=== PATIENT | male | born 1990 ===

== ENCOUNTER 2016-12-18 15:23 | Inpatient (IN) | payer MEDICAID ==
--- NOTE | 2016-12-18 15:39 | ED PDOC ---
Arrival/HPI - General Time Seen by Provider: 12/18/16 15:33 Historian: Patient - History of Present Illness Narrative History of Present Illness (Text): 12/18/16 15:36 A 26 year old male, whose past medical history includes schizophrenia, seizure disorder, depression and paranoia, presents to the emergency department for evaluation of suicidal ideation. Patient reports he took an entire bottle of Tegretol prior to arrival. Patient is unsure of how many milligrams or how many pills there were in total. Patient complains of worsening depression and states he wanted to harm himself. Patient denies any fever, chills, nausea, vomiting, abdominal pain, chest pain, shortness of breath, homicidal ideation or any other complaints. Time/Duration: Prior to Arrival Context: Home Past Medical History - Provider Review Nursing Documentation Reviewed: Yes Family/Social History - Physician Review Nursing Documentation Reviewed: Yes Family/Social History: No Known Family HX Allergies/Home Meds Allergies/Adverse Reactions: Allergies No Known Allergies Allergy (Verified 12/18/16 15:36) Home Medications: Home Meds Medication Instructions Recorded Confirmed PHENobarbital [PHENobarbital Tab] 97.2 mg PO BID 12/18/16 12/18/16 carBAMazepine [TEGretol-XR] 400 mg PO BID 12/18/16 12/18/16 Review of Systems - Physician Review All systems were reviewed & negative as marked: Yes - Review of Systems Constitutional: absent: Fevers, Night Sweats Respiratory: absent: SOB Cardiovascular: absent: Chest Pain Gastrointestinal: absent: Abdominal Pain, Nausea, Vomiting Psychiatric: Suicidal Ideation. absent: Other (Homicidal ideation) Physical Exam Vital Signs Reviewed: Yes Vital Signs Temp Pulse Resp BP Pulse Ox 12/18/16 20:25 80 18 112/49 L 100 12/18/16 18:21 71 10 L 114/54 L 98 12/18/16 17:52 81 18 123/64 99 12/18/16 16:07 70 18 137/66 100 12/18/16 15:34 97.9 F 94 H 20 121/70 100 Temperature: Afebrile Blood Pressure: Normal Pulse: Tachycardic Respiratory Rate: Normal Appearance: Positive for: Well-Appearing, Non-Toxic, Comfortable Pain Distress: None Mental Status: Positive for: Alert and Oriented X 3, other (Somnolent) - Systems Exam Head: Present: Atraumatic, Normocephalic Pupils: Present: PERRL Extroacular Muscles: Present: EOMI Conjunctiva: Present: Normal Mouth: Present: Moist Mucous Membranes Neck: Present: Normal Range of Motion Respiratory/Chest: Present: Clear to Auscultation, Good Air Exchange. No: Respiratory Distress, Accessory Muscle Use Cardiovascular: Present: Regular Rate and Rhythm, Normal S1, S2. No: Murmurs Abdomen: Present: Normal Bowel Sounds. No: Tenderness, Distention, Peritoneal Signs Back: Present: Normal Inspection Upper Extremity: Present: Normal Inspection. No: Cyanosis, Edema Lower Extremity: Present: Normal Inspection. No: Edema Neurological: Present: GCS=15, CN II-XII Intact, Speech Normal Skin: Present: Warm, Dry, Normal Color. No: Rashes Psychiatric: Present: Alert, Oriented x 3, Suicidal Ideation. No: Homicidal Ideation Medical Decision Making ED Course and Treatment: 12/18/16 15:35 Impression: A 26 year old male with suicidal ideation. Patient notes worsening depression. He denies any physical complaints at this time. Plan: -- EKG -- Labs -- Urine culture and Urinalysis -- IV fluids -- Reassess and disposition Progress Notes: 12/18/16 16:25 Poison control contacted, they recommend IV fluids. Charcoal and Tegretol levels sent. Patient placed on one to one observation due to suicidal ideations. - Lab Interpretations Lab Results: 12/18/16 15:45 12/18/16 15:45 Lab Results 12/18/16 16:02: Carbamazepine 7 12/18/16 15:45: Alcohol, Quantitative < 10 12/18/16 15:45: Salicylates < 1 L, Acetaminophen < 10.0 L 12/18/16 15:45: Sodium 139, Potassium 3.9, Chloride 106, Carbon Dioxide 25, Anion Gap 12, BUN 17, Creatinine 0.7, Est GFR ( Amer) > 60, Est GFR (Non- Af Amer) > 60, Random Glucose 104, Calcium 9.5, Magnesium 1.9, Total Bilirubin 0.7, AST 57, ALT 105 H, Alkaline Phosphatase 101, Total Protein 7.7, Albumin 4.4 , Globulin 3.3, Albumin/Globulin Ratio 1.3 12/18/16 15:45: WBC 5.8, RBC 5.39, Hgb 14.4, Hct 42.3, MCV 78.5 L, MCH 26.7, MCHC 34.0, RDW 15.0 H, Plt Count 225, MPV 9.8, Gran % 69.0 H, Lymph % (Auto) 22.8, [place] % (Auto) 6.3 H, Eos % (Auto) 1.7, Baso % (Auto) 0.2, Gran # 4.03, Lymph # 1.3, [place] # 0.4, Eos # 0.1, Baso # 0.01 - Medication Orders Current Medication Orders: Sodium Chloride (Sodium Chloride 0.9%) 1,000 mls @ 200 mls/hr IV .Q5H ALEKSEY Last Admin: 12/18/16 16:07 Dose: 200 mls/hr Discontinued Medications Charcoal (Charcoal, Activated) 260 mg PO STAT STA Stop: 12/18/16 16:04 Last Admin: 12/18/16 16:08 Dose: 260 mg Charcoal/Sorbitol (Actidose/Sorbitol 50gm/240 Ml Susp) 50 gm PO ONCE ONE Stop: 12/18/16 16:31 Last Admin: 12/18/16 17:25 Dose: 50 gm ED OBSERVATION Date of observation admission: 12/18/16 Time of observation admission: 16:50 - Observation admission statement Patient is being placed in observation because:: Overdose - Goals of Observation Goals of observation are:: Monitor and treat patient - Progress Note Progress Note: 12/18/16 16:50 Patient with suicidal ideation, he reports overdosing on Tegretol. 12/18/16 18:[address] Gaitan, who did not accept patient admission. Will admit under hospitalist. 12/18/16 18:27 Case discussed with hospitalist, who accepts patient admission for overdose. Aware of needed one to one observation upstairs. Disposition/Present on Arrival - Disposition Disposition Time: 16:50
[2016-12-18 16:01] VITALS: BMI 36.8
[2016-12-18] MEDS ORDERED: Activated Charcoal 260mg capsule PO STA (16:03)
[2016-12-18 16:07] LABS: BASO # 0.01 K/mm3 (0.0-2.0); BASO % 0.2 % (0.0-3.0); EOS # 0.1 (0.0-0.7); EOS % 1.7 % (1.5-5.0); GRAN # 4.03 (1.4-6.5); HEMATOCRIT 42.3 % (42.0-52.0); LYMPH # 1.3 (1.2-3.4); LYMPH % 22.8 % (22.0-35.0); MEAN CELL VOLUME 78.5 fl (80.0-105.0); MEAN CORPUSCULAR HEMOGLOBIN 26.7 pg (25.0-35.0); MEAN PLATELET VOLUME 9.8 fl (7.0-11.0); MONO # 0.4 (0.1-0.6); MONO % 6.3 % (1.0-6.0); WHITE BLOOD COUNT 5.8 10^3/ul (4.5-11.0)
[2016-12-18] MEDS: Sodium Chloride 0.9% 1,000 ML IV SCH (16:07)
[2016-12-18 16:17] LABS: ALB/GLOB RATIO 1.3 (1.1-1.8); ALKALINE PHOSPHATASE 101 U/L (38-126); ALT/SGPT 105 U/L (7-56); AST/SGOT 57 U/L (17-59); BILIRUBIN,TOTAL 0.7 mg/dL (0.2-1.3); BLOOD UREA NITROGEN 17 mg/dL (7-21); CALCIUM 9.5 mg/dL (8.4-10.5); CARBON DIOXIDE 25 mmol/L (21-33); CHLORIDE 106 mmol/L (95-110); GFR AFRICAN-AMERICAN > 60; GLUCOSE,RANDOM 104 mg/dL (70-110); MAGNESIUM 1.9 mg/dL (1.7-2.2); POTASSIUM 3.9 mmol/L (3.6-5.0); SODIUM 139 mmol/L (132-148); TOTAL PROTEIN 7.7 g/dL (5.8-8.3)
[2016-12-18 20:47] LABS: ALB/GLOB RATIO 1.4 (1.1-1.8); ALKALINE PHOSPHATASE 93 U/L (38-126); ALT/SGPT 85 U/L (7-56); AST/SGOT 54 U/L (17-59); BILIRUBIN,TOTAL 0.4 mg/dL (0.2-1.3); BLOOD UREA NITROGEN 16 mg/dL (7-21); CALCIUM 9.3 mg/dL (8.4-10.5); CARBON DIOXIDE 23 mmol/L (21-33); CHLORIDE 108 mmol/L (98-107); GFR AFRICAN-AMERICAN > 60; GLUCOSE,RANDOM 84 mg/dL (70-110); POTASSIUM 4.2 mmol/L (3.6-5.0); SODIUM 140 mmol/L (132-148); TOTAL PROTEIN 7.1 g/dL (5.8-8.3)
[2016-12-18 22:26] LABS: ALB/GLOB RATIO 1.4 (1.1-1.8); ALKALINE PHOSPHATASE 94 U/L (38-126); ALT/SGPT 88 U/L (7-56); AST/SGOT 49 U/L (17-59); BILIRUBIN,TOTAL 0.4 mg/dL (0.2-1.3); BLOOD UREA NITROGEN 16 mg/dL (7-21); CALCIUM 9.1 mg/dL (8.4-10.5); CARBON DIOXIDE 23 mmol/L (21-33); CHLORIDE 107 mmol/L (98-107); GFR AFRICAN-AMERICAN > 60; GLUCOSE,RANDOM 83 mg/dL (70-110); POTASSIUM 4.1 mmol/L (3.6-5.0); TOTAL PROTEIN 6.9 g/dL (5.8-8.3)
[2016-12-18 22:28] LABS: BASO # 0.01 K/mm3 (0.0-2.0); BASO % 0.2 % (0.0-3.0); EOS # 0.1 (0.0-0.7); EOS % 1.6 % (1.5-5.0); GRAN # 3.92 (1.4-6.5); GRAN % 68.3 % (50.0-68.0); HEMATOCRIT 41.5 % (42.0-52.0); LYMPH # 1.3 (1.2-3.4); LYMPH % 22.9 % (22.0-35.0); MEAN CELL VOLUME 78.9 fl (80.0-105.0); MEAN CORPUSCULAR HEMOGLOBIN 26.2 pg (25.0-35.0); MEAN CORPUSCULAR HGB CONC 33.3 g/dl (31.0-37.0); MEAN PLATELET VOLUME 9.5 fl (7.0-11.0); MONO # 0.4 (0.1-0.6); RED CELL DISTRIBUTION WIDTH 15.1 % (11.5-14.5); WHITE BLOOD COUNT 5.7 10^3/ul (4.5-11.0)
[2016-12-18 22:30] LABS: SODIUM 140 mmol/L (132-148)
--- NOTE | 2016-12-18 23:27 | CP.PCM.HP ---
History of Present Illness - History of Present Illness History of Present Illness: 26 year old male presents to the hospital after claiming to have swallowed 4 bottles of medicine. He stated he was feeling sad and gave up on life so he tried to kill himself by ingesting the medicine. He states the medicine was his prescription medicines. He was able to recall that one was a bottle of tegretol , one was a bottle of trazadone, one was a bottle of estrada pill which he was unsire of, and he was also not sure about the fourth bottle. He currently states he was feeling nauseas, hot, tired and he was vomiting. He denied any SOB , CP, dizziness, abd pain, or cough. PMH: asthma, schizophrenia, seizure disorder, depression Prior Hospitalizations: Similar sicial episode in 2009 Social: smoke 2 pack a day for last 8 years, denies alcohol abuse, denies illicit drug abuse Present on Admission - Present on Admission Any Indicators Present on Admission: No Review of Systems - Constitutional Constitutional: As Per HPI, Fever - EENT Ears: Abnormal Hearing - Cardiovascular Cardiovascular: As Per HPI Past Patient History - Infectious Disease Hx of Infectious Diseases: None - Past Social History Smoking Status: Current Some Days Smoker - PSYCHIATRIC Hx Depression: Yes Hx Schizophrenia: Yes Hx Substance Use: No Other/Comment: hx suicidal attempt - ANESTHESIA Hx Anesthesia: No Meds Allergies/Adverse Reactions: Allergies Allergy/AdvReac Type Severity Reaction Status Date / Time No Known Allergies Allergy Verified 12/18/16 15:36 Physical Exam - Constitutional Appears: In Acute Distress - Head Exam Head Exam: ATRAUMATIC, NORMAL INSPECTION, NORMOCEPHALIC - Eye Exam Eye Exam: Conjunctival injection, EOMI, Normal appearance, PERRL Pupil Exam: NORMAL ACCOMODATION, PERRL - ENT Exam ENT Exam: Mucous Membranes Dry - Respiratory Exam Respiratory Exam: Clear to Auscultation Bilateral, NORMAL BREATHING PATTERN - Cardiovascular Exam Cardiovascular Exam: REGULAR RHYTHM, +S1, +S2 - GI/Abdominal Exam GI & Abdominal Exam: Tenderness - Neurological Exam Neurological exam: Altered - Psychiatric Exam Psychiatric exam: Depressed, Suicidal Ideation Results - Vital Signs Recent Vital Signs: Last Vital Signs Temp 97.9 F 12/18/16 15:34 Pulse 76 12/18/16 22:47 Resp 16 12/18/16 22:47 BP 118/56 L 12/18/16 22:47 Pulse Ox 99 12/18/16 22:47 - Labs Result Diagrams: 12/18/16 22:12 12/18/16 22:12 Labs: Laboratory Results - last 24 hr 12/18/16 12/18/16 12/18/16 20:20 20:20 22:12 WBC 5.7 RBC 5.26 Hgb 13.8 L Hct 41.5 L MCV 78.9 L MCH 26.2 MCHC 33.3 RDW 15.1 H Plt Count 203 MPV 9.5 Gran % 68.3 H Lymph % (Auto) 22.9 [place] % (Auto) 7.0 H Eos % (Auto) 1.6 Baso % (Auto) 0.2 Gran # 3.92 Lymph # 1.3 [place] # 0.4 Eos # 0.1 Baso # 0.01 Sodium 140 Potassium 4.2 Chloride 108 H Carbon Dioxide 23 Anion Gap 13 BUN 16 Creatinine 0.7 Est GFR ( Amer) > 60 Est GFR (Non-Af Amer) > 60 Random Glucose 84 Calcium 9.3 Total Bilirubin 0.4 AST 54 ALT 85 H Alkaline Phosphatase 93 Total Protein 7.1 Albumin 4.1 Globulin 3.0 Albumin/Globulin Ratio 1.4 Carbamazepine 15 H* 12/18/16 22:12 WBC RBC Hgb Hct MCV MCH MCHC RDW Plt Count MPV Gran % Lymph % (Auto) [place] % (Auto) Eos % (Auto) Baso % (Auto) Gran # Lymph # [place] # Eos # Baso # Sodium 140 Potassium 4.1 Chloride 107 Carbon Dioxide 23 Anion Gap 14 BUN 16 Creatinine 0.7 Est GFR ( Amer) > 60 Est GFR (Non-Af Amer) > 60 Random Glucose 83 Calcium 9.1 Total Bilirubin 0.4 AST 49 ALT 88 H Alkaline Phosphatase 94 Total Protein 6.9 Albumin 4.0 Globulin 2.9 Albumin/Globulin Ratio 1.4 Carbamazepine Assessment & Plan - Assessment and Plan (Free Text) Assessment: 26 year old male presents to the hospital after claiming to have swallowed 4 bottles of medicine in an attempted suicide. He is being worked up and treated for a drug overdose Plan: 1. Overdose- possible prescription drugs -CBC and BMP ordered -charcoal administered -fluids started -urine toxicology ordered -pscyhiatry consulted for suicidal thoughts and intent -zofran started for nausea and vomiting -seizure precautions -fall precautions -x ray and echo ordered Depression -hold home meds due to possible overdose
[2016-12-19] MEDS: Sodium Chloride 0.9% 1,000 ML IV SCH ×9 (00:22→22:54)
--- NOTE | 2016-12-19 08:17 | RAD ---
HISTORY: psych COMPARISON: No prior. FINDINGS: LUNGS: No active pulmonary disease. PLEURA: No significant pleural effusion identified, no pneumothorax apparent. CARDIOVASCULAR: Normal. OSSEOUS STRUCTURES: No significant abnormalities. VISUALIZED UPPER ABDOMEN: Normal. OTHER FINDINGS: None. IMPRESSION: No active disease.
[2016-12-19 13:11] LABS: URINE BILIRUBIN NEGATIVE (NEGATIVE); URINE BLOOD NEGATIVE (NEGATIVE); URINE GLUCOSE (UA) NEGATIVE (NEGATIVE); URINE KETONE NEGATIVE (NEGATIVE); URINE LEUKOCYTE ESTERASE NEGATIVE Leu/uL (NEGATIVE); URINE PROTEIN NEGATIVE mg/dL (<30 mg/dL); URINE UROBILINOGEN 0.2 E.U./dL (<1 E.U./dL)
[2016-12-19 13:12] LABS: URINE APPEARANCE CLEAR (CLEAR); URINE COLOR YELLOW (YELLOW)
--- NOTE | 2016-12-19 20:36 | CON ---
HISTORY OF PRESENT ILLNESS: The patient is 26-year-old male with not known previous psychiatric history. The patient is new to this facility. The patient was admitted on the medical side for evaluation of possible suicidal attempt. The patient swallow full bottles of medicine as per report. The patient tried to kill himself. The patient was found to have elevated carbamazepine level. As per report from the medical team, the patient also overdosed on trazodone and unknown mcdonald pills. Psychiatric consult was called for evaluation of depressive symptoms and possible suicidal attempt and possible psychiatric admission. This specification writer attempted to speak to the patient. The patient is deeply sleeping and refused to talk. The patient was easily arousable; said that he has headache and stay mute. From this specification writer perspective, the patient is selectively mute. The patient is currently on one-to-one and no further information available. This specification writer tract previous history at [facility]. The patient was released from custodial on 11/18, and this specification writer had impression that most likely the patient overdosed due to social issues but cannot make that statement for sure. PHYSICAL EXAMINATION: VITAL SIGNS: Stable. Temperature 98.2, pulse is 70, blood pressure 130/64, respiration 20, oxygen saturation is 98%. MEDICATIONS: Reviewed, Zofran and sodium chloride. LABORATORY DATA: Reviewed, hemoglobin and hematocrit . Chemistry reviewed. ALT is 88, is trending down. Toxicology as carbamazepine 12 at present moment, yesterday was 15, is trending down. MENTAL STATUS EXAMINATION: Cannot be completed at present moment because the patient is selectively mute. IMPRESSION: Rule out mood disorder, rule out major depressive disorder, rule out possible suicidal attempt and overdosed on carbamazepine. PLAN: The patient currently on one-to-one. This specification writer will add some p.r.n. orders in case of agitation. We will follow up and implied accordingly. Thank you very much for letting and participating in care of your patient. Solange Go MD
--- NOTE | 2016-12-19 21:04 | CARD ---
APPROVED REPORT EKG Measurement Heart [id number] [place] [id number] <Conclusion> Normal sinus rhythm Possible Left atrial enlargement Early repolarization pattern Borderline ECG
[2016-12-20] MEDS: Sodium Chloride 0.9% 1,000 ML IV SCH ×2 (01:30→04:52)
[2016-12-20 07:55] LABS: BASO # 0.01 K/mm3 (0.0-2.0); BASO % 0.2 % (0.0-3.0); EOS # 0.1 (0.0-0.7); EOS % 2.2 % (1.5-5.0); GRAN # 3.6 (1.4-6.5); HEMATOCRIT 40.8 % (42.0-52.0); LYMPH # 1.7 (1.2-3.4); LYMPH % 28.3 % (22.0-35.0); MEAN CORPUSCULAR HEMOGLOBIN 26.2 pg (25.0-35.0); MEAN CORPUSCULAR HGB CONC 33.6 g/dl (31.0-37.0); MEAN PLATELET VOLUME 9.9 fl (7.0-11.0); MONO # 0.5 (0.1-0.6); MONO % 8.3 % (1.0-6.0); RED CELL DISTRIBUTION WIDTH 14.4 % (11.5-14.5); WHITE BLOOD COUNT 5.9 10^3/ul (4.5-11.0)
[2016-12-20 08:10] LABS: ALB/GLOB RATIO 1.3 (1.1-1.8); ALKALINE PHOSPHATASE 90 U/L (38-126); ALT/SGPT 78 U/L (7-56); AST/SGOT 35 U/L (17-59); BILIRUBIN,TOTAL 0.4 mg/dL (0.2-1.3); BLOOD UREA NITROGEN 9 mg/dL (7-21); CALCIUM 8.7 mg/dL (8.4-10.5); CARBON DIOXIDE 24 mmol/L (21-33); CHLORIDE 108 mmol/L (98-107); GFR AFRICAN-AMERICAN > 60; GLUCOSE,RANDOM 79 mg/dL (70-110); POTASSIUM 3.7 mmol/L (3.6-5.0); SODIUM 141 mmol/L (132-148)
--- NOTE | 2016-12-20 13:16 | CP.PCM.PN ---
<JuanLuis E - Last Filed: 12/20/16 14:51> Subjective - Date & Time of Evaluation Date of Evaluation: 12/20/16 Time of Evaluation: 08:15 - Subjective Subjective: Luis E Martinez DO, PGY-1, Hospitalist Service Patient seen and examined at bedside. Patient states he needs his phenobarbital and carbamazepine, otherwise he might have a seizure. Patient informed us Patient admits to major social issues at home and recently being released from [facility]. I sympathize with this gentleman. Objective - Vital Signs/Intake and Output Vital Signs (last 24 hours): Temp Pulse Resp BP Pulse Ox 97 F L 81 21 158/96 H 98 12/20/16 12:00 12/20/16 12:00 12/20/16 12:00 12/20/16 12:00 12/20/16 06:00 Intake and Output: 12/20/16 12/20/16 06:59 18:59 Intake Total 5600 Output Total 800 Balance 4800 - Medications Medications: Current Medications Clonazepam (Klonopin) 1 mg PO AMHS ALEKSEY PRN Reason: Protocol Ondansetron HCl (Zofran Inj) 4 mg IVP Q6H PRN PRN Reason: Nausea/Vomiting Sertraline HCl (Zoloft) 100 mg PO DAILY ALEKSEY Trazodone HCl (Desyrel) 50 mg PO HS ALEKSEY - Labs Labs: 12/20/16 07:00 12/20/16 07:00 - Constitutional Appears: Well, No Acute Distress - Head Exam Head Exam: ATRAUMATIC, NORMOCEPHALIC - Eye Exam Eye Exam: EOMI, Normal appearance, PERRL - ENT Exam ENT Exam: Mucous Membranes Moist, Normal Oropharynx - Neck Exam Neck Exam: Normal Inspection - Respiratory Exam Respiratory Exam: Clear to Ausculation Bilateral, NORMAL BREATHING PATTERN - Cardiovascular Exam Cardiovascular Exam: RRR, +S1, +S2 - GI/Abdominal Exam GI & Abdominal Exam: Soft, Normal Bowel Sounds. absent: Pulsatile Mass, Rebound - Extremities Exam Extremities Exam: Full ROM, Normal Capillary Refill, Normal Inspection - Back Exam Back Exam: NORMAL INSPECTION - Neurological Exam Neurological Exam: Alert, Awake, CN II-XII Intact - Psychiatric Exam Psychiatric exam: Normal Affect, Normal Mood - Skin Skin Exam: Dry, Intact, Normal Color, Warm Assessment and Plan - Assessment and Plan (Free Text) Assessment: 1)Drug overdose: suicide versus impulse with negative result, social circumstances may not warrant a diagnsis of depression. - High risk of successfully commiting suicide - Carbamazepine and Phenobarbital levels checked. Carbamazepine level was normal today, phenobarbital level pending 2) Psychiatric co-morbidities - Dr. Narvaez consulted, will try and transfer to psychiatric unit once patient is medically stable. Plan: As above <Drew Mejia - Last Filed: 12/20/16 15:26> Objective - Vital Signs/Intake and Output Vital Signs (last 24 hours): Temp Pulse Resp BP Pulse Ox 97 F L 81 21 158/96 H 98 12/20/16 12:00 12/20/16 12:00 12/20/16 12:00 12/20/16 12:00 12/20/16 06:00 Intake and Output: 12/20/16 12/20/16 06:59 18:59 Intake Total 5600 Output Total 800 Balance 4800 - Medications Medications: Current Medications Clonazepam (Klonopin) 1 mg PO AMHS ALEKSEY PRN Reason: Protocol Ondansetron HCl (Zofran Inj) 4 mg IVP Q6H PRN PRN Reason: Nausea/Vomiting Sertraline HCl (Zoloft) 100 mg PO DAILY ALEKSEY Trazodone HCl (Desyrel) 50 mg PO HS ALEKSEY - Labs Labs: 12/20/16 07:00 12/20/16 07:00 Attending/Attestation - Attestation I have personally seen and examined this patient.: Yes I have fully participated in the care of the patient.: Yes I have reviewed all pertinent clinical information, including history, physical exam and plan: Yes Notes (Text): 12/20/16 15:18 26 year old male with past medical history of seizure disorder and ?history of depression who presented with drug overdose after ingesting 4 bottles of medications with possible suicide attempt. Utox was positive for barbituates. Carbemazepine level was elevated. Repeat level is coming down. Phenobarbital level is pending. Psychiatry evaluation was appreciated. He is currently on 1: 1 observation. Will follow up with psychiatry recommendations for possible transfer to inpatient psychiatry unit. LFTs (ALT) are mildly elevated which we will monitor. Hepatitis panel is ordered. Drew Mejia MD Hospitalist.
[2016-12-20] MEDS ORDERED: levETIRAcetam 1,000 MG in Sodium Chloride 0.9% 100 ML IV ONE (14:52)
--- NOTE | 2016-12-20 15:09 | PCM.RRT ---
<Bulmaro Bender - Last Filed: 12/20/16 15:12> BIOMEDICAL EQUIPMENT SPECIALIST Nurse Assessment - Situation Date: 12/20/16 Time BIOMEDICAL EQUIPMENT SPECIALIST was called: 14:45 BIOMEDICAL EQUIPMENT SPECIALIST Responder Arrival Time: 14:45 BIOMEDICAL EQUIPMENT SPECIALIST Location:: [address] [place] [address] Room Number: 272-1 BIOMEDICAL EQUIPMENT SPECIALIST Reason for Call: Change in Mental Status BIOMEDICAL EQUIPMENT SPECIALIST Called By: RN - IV IV Inserted during BIOMEDICAL EQUIPMENT SPECIALIST?: No - Respiratory Oxygen Delivery Method: Room Air Oxygen Flow Rate: 3 Received Nebulizer Treatments:: No Was the Patient Ventilated with Bag/Mask 100% O2?: No Secretions Suctioned?: Yes Was the Patient Intubated?: No Was the Patient Placed on a Ventilator?: No - Diagnostic Test Ordered EKG: Yes Chest X-Ray: No CT Scan: Yes (head) - Stat Labs Ordered BIOMEDICAL EQUIPMENT SPECIALIST Stat Labs Ordered: CBC, BMP BIOMEDICAL EQUIPMENT SPECIALIST Other Labs Ordered: MG, PHOS CPR started during BIOMEDICAL EQUIPMENT SPECIALIST?: No - Vital Signs Vital Sign: Rapid Response Vital Sign Blood Pressure 147/80 Pulse Rate 67 Respiratory Rate 18 Temperature 98.2 F Oxygen Saturation 98 - Finger Stick Blood Glucose Finger Stick Blood Glucose: 108 - Time BIOMEDICAL EQUIPMENT SPECIALIST Ended Time BIOMEDICAL EQUIPMENT SPECIALIST Ended: 14:55 - Vital Signs at end of BIOMEDICAL EQUIPMENT SPECIALIST Vital Signs at end of BIOMEDICAL EQUIPMENT SPECIALIST: Rapid Response End Vital Sign Blood Pressure 114/71 Pulse Rate 68 Respiratory Rate 18 Temperature 98.2 F O2 Sat by Pulse Oximetry 97 - Recommendations Notifications: Attending Physician, Consultations I.Reason for BIOMEDICAL EQUIPMENT SPECIALIST - A) Acute Change in Patient: (Select all that apply): Acute change in mental status Subjective: Patient had a tonic clonic seizure. Patient was last seen talking on the phone. A Rapid response was called and vital signs were taken. VS: 98% on O2 cannula , 147/80, 67 HR, blood glucose 108. There was no loss of bowel or bladder incontinence. There were no signs of his tongue being bitten. Patient is alert and orientated x3. An EKG was done showing normal sinus rhythm. Head CT was ordered and repeat of lab work. I spoke with the Neurologist and discussed the patient plan with him. The patient was loaded with Keppra and is to been seen by the Neurologist. - Respiratory Oxygen Delivery Method: Nasal Cannula @L/min Oxygen Flow Rate: 3 - Eyes Eye Exam: EOMI, Normal appearance, PERRL - Respiratory Exam Respiratory Exam: Clear to Ausculation Bilateral, NORMAL BREATHING PATTERN - Cardiovascular Exam Cardiovascular Exam: REGULAR RHYTHM, +S1, +S2 - Neurological Exam Neurological Exam: Alert, Awake, CN II-XII Intact, Oriented x3 Plan - Assessment of Findings&Treatment Plan Patient seen to have a tonic-clonic seizure. Plan -Repeat EKG -Repeat of CBC, Mg, Phos, CK levels. -Head CT w/o contrast ordered. -Neuro consult ordered. Spoke with Neurologist and he agreed to see the patient. -Ordered Swallow eval. <Drew Mejia - Last Filed: 12/20/16 15:28> BIOMEDICAL EQUIPMENT SPECIALIST Nurse Assessment - Vital Signs Vital Sign: Rapid Response Vital Sign Blood Pressure 147/80 Pulse Rate 67 Respiratory Rate 18 Temperature 98.2 F Oxygen Saturation 98 - Vital Signs at end of BIOMEDICAL EQUIPMENT SPECIALIST Vital Signs at end of BIOMEDICAL EQUIPMENT SPECIALIST: Rapid Response End Vital Sign Blood Pressure 114/71 Pulse Rate 68 Respiratory Rate 18 Temperature 98.2 F O2 Sat by Pulse Oximetry 97 Attending/Attestation - Attestation I have personally seen and examined this patient.: Yes I have fully participated in the care of the patient.: Yes I have reviewed all pertinent clinical information, including history, physical exam and plan: Yes Notes (Text): 12/20/16 15:26 BIOMEDICAL EQUIPMENT SPECIALIST called for seizure activity. Labs and CT head is ordered. Discussed with neurology and casper toro ordered.
--- NOTE | 2016-12-20 15:34 | CT ---
PROCEDURE: CT HEAD WITHOUT CONTRAST. HISTORY: seizures COMPARISON: None available. TECHNIQUE: Axial computed tomography images were obtained through the head/brain without intravenous contrast. Radiation dose: Total exam DLP = 1216 mGy-cm. This CT exam was performed using one or more of the following dose reduction techniques: Automated exposure control, adjustment of the mA and/or kV according to patient size, and/or use of iterative reconstruction technique. FINDINGS: HEMORRHAGE: No intracranial hemorrhage. BRAIN: No mass effect or edema. No atrophy or chronic microvascular ischemic changes. VENTRICLES: Unremarkable. No hydrocephalus. CALVARIUM: Unremarkable. PARANASAL SINUSES: Unremarkable as visualized. No significant inflammatory changes. MASTOID AIR CELLS: Unremarkable as visualized. No inflammatory changes. OTHER FINDINGS: None. IMPRESSION: Normal CT of the Head.
[2016-12-20 15:58] LABS: ALB/GLOB RATIO 1.4 (1.1-1.8); ALKALINE PHOSPHATASE 87 U/L (38-126); ALT/SGPT 85 U/L (7-56); AST/SGOT 39 U/L (17-59); BILIRUBIN,TOTAL 0.4 mg/dL (0.2-1.3); BLOOD UREA NITROGEN 9 mg/dL (7-21); CALCIUM 9.2 mg/dL (8.4-10.5); CARBON DIOXIDE 23 mmol/L (21-33); CHLORIDE 109 mmol/L (98-107); GFR AFRICAN-AMERICAN > 60; GLUCOSE,RANDOM 96 mg/dL (70-110); MAGNESIUM 2.1 mg/dL (1.7-2.2); POTASSIUM 3.9 mmol/L (3.6-5.0); SODIUM 141 mmol/L (132-148); TOTAL PROTEIN 7.6 g/dL (5.8-8.3)
--- NOTE | 2016-12-20 19:18 | CARD ---
APPROVED REPORT EKG Measurement Heart [id number] [place] [id number] <Conclusion> Normal sinus rhythm with sinus arrhythmia Early repolarization Normal ECG
[2016-12-20] MEDS ORDERED: levETIRAcetam 500 MG in Sodium Chloride 0.9% 100 ML IV ONE (20:13)
--- NOTE | 2016-12-20 20:23 | PCM.RRT ---
<LINDSAY MANDUJANO - Last Filed: 12/20/16 20:38> TERRITORY ACCOUNT EXECUTIVE Nurse Assessment - Situation Date: 12/20/16 Time TERRITORY ACCOUNT EXECUTIVE was called: 20:09 TERRITORY ACCOUNT EXECUTIVE Responder Arrival Time: 20:10 TERRITORY ACCOUNT EXECUTIVE Location:: [address] [place] [address] Room Number: [id number] TERRITORY ACCOUNT EXECUTIVE Reason for Call: Change in Mental Status TERRITORY ACCOUNT EXECUTIVE Called By: RN - IV IV Inserted during TERRITORY ACCOUNT EXECUTIVE?: No - Respiratory Oxygen Delivery Method: Room Air Oxygen Flow Rate: 2 Received Nebulizer Treatments:: No Was the Patient Ventilated with Bag/Mask 100% O2?: No Secretions Suctioned?: Yes Was the Patient Intubated?: No Was the Patient Placed on a Ventilator?: No - Medication Medications Administered During TERRITORY ACCOUNT EXECUTIVE: ativan 2mg,. [id number] - Diagnostic Test Ordered EKG: No Chest X-Ray: No CT Scan: No (head) - Stat Labs Ordered TERRITORY ACCOUNT EXECUTIVE Other Labs Ordered: MG, PHOS CPR started during TERRITORY ACCOUNT EXECUTIVE?: No - Vital Signs Vital Sign: Rapid Response Vital Sign Blood Pressure 143/73 Pulse Rate 1 Respiratory Rate 17 Temperature 99.1 F Oxygen Saturation 95 - Finger Stick Blood Glucose Finger Stick Blood Glucose: 66 - [place] Coma Scale Coma Scale Eye Opening: Spontaneous Coma Scale Motor: Obeys Commands Movement Coma Scale Verbal: Confused/able to answer - Time TERRITORY ACCOUNT EXECUTIVE Ended Time TERRITORY ACCOUNT EXECUTIVE Ended: 20:18 - Vital Signs at end of TERRITORY ACCOUNT EXECUTIVE Vital Signs at end of TERRITORY ACCOUNT EXECUTIVE: Rapid Response End Vital Sign Blood Pressure 114/71 Pulse Rate 68 Respiratory Rate 18 Temperature 98.2 F O2 Sat by Pulse Oximetry 97 - Recommendations 5) TERRITORY ACCOUNT EXECUTIVE Level of Care Recommendations: Remain in current setting Notifications: Attending Physician, Consultations I.Reason for TERRITORY ACCOUNT EXECUTIVE - A) Acute Change in Patient: (Select all that apply): Staff member or family is worried about patient, Acute change in mental status Subjective: Patient had a tonic clonic seizure. Pt was last seen in bed, resting, however, he felt an aura, felt tightening of his body. No jerky moveemnts were observed by the nurse, + foaming seen at the side of his mouth. There was no loss of bowel or bladder incontinence or tongue biting. A Rapid response was called and vital signs were taken. VS: 98% on O2 cannula, 147/80, 73 HR, blood glucose 66. Postictal state was noted, where pt was confused and lethargic. About five minutes later, pt returned to his baseline, AOx4. The patient was given 500 mg Keprra and 2 mg Ativan. Neurology already on board from previous RRR this afternoon. - Neurological Status (Select all that apply): Confused, Lethargic - Respiratory Oxygen Delivery Method: Room Air Oxygen Flow Rate: 2 - Constitutional Appears: Confused - Head Head Exam: ATRAUMATIC, NORMOCEPHALIC - Eyes Eye Exam: EOMI, PERRL - Respiratory Exam Respiratory Exam: Clear to Ausculation Bilateral, NORMAL BREATHING PATTERN. absent: Chest Wall Tenderness - Cardiovascular Exam Cardiovascular Exam: RRR, +S1, +S2. absent: Murmur - GI/Abdominal Exam GI & Abdominal Exam: Soft, Normal Bowel Sounds - Neurological Exam Neurological Exam: Awake Additional exam: Confused - Extremities Exam Extremities Exam: absent: Calf Tenderness, Pedal Edema Plan - Assessment of Findings&Treatment Plan 26M found to be in RRR, likely seizure activity. Given 500 mg Keprra and 2 mg Ativan, head Ct this afternoon showed no acute changes. labs/electrolytes this afternoon wnl. <Chantelle Head - Last Filed: 12/21/16 01:35> TERRITORY ACCOUNT EXECUTIVE Nurse Assessment - Vital Signs Vital Sign: Rapid Response Vital Sign Blood Pressure 143/73 Pulse Rate 1 Respiratory Rate 17 Temperature 99.1 F Oxygen Saturation 95 - Vital Signs at end of TERRITORY ACCOUNT EXECUTIVE Vital Signs at end of TERRITORY ACCOUNT EXECUTIVE: Rapid Response End Vital Sign Blood Pressure 114/71 Pulse Rate 68 Respiratory Rate 18 Temperature 98.2 F O2 Sat by Pulse Oximetry 97 Attending/Attestation - Attestation I have personally seen and examined this patient.: Yes I have fully participated in the care of the patient.: Yes I have reviewed all pertinent clinical information, including history, physical exam and plan: Yes Notes (Text): 12/21/16 01:35 Agree with note.
[2016-12-20] MEDS ORDERED: Dextrose 50% SYRINGE Inj (50 ml) IVP ONE (20:24)
--- NOTE | 2016-12-21 02:34 | CON ---
HISTORY OF PRESENT ILLNESS: The patient is a 26-year-old male with a history of depression, reported bipolar disorder, anxiety, who was admitted to the medical floor after overdosing on full bottles of medication in an attempt to kill himself. Psychiatry is following the patient on the unit, and I reviewed Dr. Go's notes and that with the patient at bedside. The patient is alert and oriented x3, reports depression, and that he took the medication so that he go sleep and never wake up. He indicates that he is still depressed due to stressors of having "nowhere to go and homelessness" and reports that he was recently kicked out of his roommate's house 2 days prior to admission to the medical floor and felt overwhelmed and decided to overdose. He remains depressed. He is no longer suicidal, but reports hopelessness about his situation, not hallucinating, he is coherent. Insight is considered to be fair and judgement is considered to be poor. PHYSICAL EXAMINATION VITAL SIGNS: Reviewed at 6 a.m., they are 98.2, 60, 144/85, and 20. LABORATORY DATA: Labs were also reviewed by this provider. The patient is not on any relevant psychiatric medications right now. IMPRESSION: Major depressive disorder, severe without psychotic symptoms, rule out the contribution of adjustment disorder with depression. We will continue 1:1 as the patient is unknown to me and is unclear if she is being honest about not having any further suicidal thoughts. He is quite depressed and the patient is agreeable to sign into the psychiatric unit once he is medically cleared. I will start Zoloft for the patient at 100 mg daily as well as Klonopin 1 mg a.m. and at bedtime and trazodone per patient 50 mg at bedtime to treat his depression and anxiety, and we will continue to followup with him until he is medically cleared. Tae Lovell MD
[2016-12-21] MEDS ORDERED: levETIRAcetam 1,000 MG in Sodium Chloride 0.9% 100 ML IV SCH ×2 (10:00→22:00)
[2016-12-21] MEDS ORDERED: PHENobarbital 130 mg/ml Inj Syringe IM STA (11:23)
--- NOTE | 2016-12-21 12:16 | CON ---
HISTORY OF PRESENT ILLNESS: The patient is a 26-year-old male with a history of depression, reported bipolar disorder, anxiety, who is admitted to the medical floor after overdosing on trazodone and Tegretol. Psychiatry is following the patient on the unit and I have reviewed recent notes from the unit which indicate the patient suffered a seizure yesterday. I met with the patient at bedside and he remains alert and oriented x3, well aware of circumstances. He recalls me from my visit yesterday and focuses good. The patient reports continued depression. He denies hallucination. Thought process is coherent. As of now, he is feeling a little bit more hopeful. Denies suicidal thoughts and is currently tolerating medications there were restarted for him yesterday. Nursing notes indicate that he has not been a behavioral issue thus far and he remains on one-to-one. Vital signs and laboratory data were reviewed by this provider. Relevant psychiatric medications include trazodone 50 mg at bedtime, Zoloft 100 mg daily and Klonopin 1 mg a.m. and at bedtime, hold parameters of systolic blood pressure less than 100. IMPRESSION: Major depressive disorder, recurrent, severe without psychotic features, rule out bipolar disorder, by history. RECOMMENDATIONS: We will continue with current treatment and plan and psychiatry will follow up with the patient as he is medically optimized. Plan is for the patient to sign himself involuntarily to psychiatric unit once he is medically cleared and the patient is still agreeable to this. The patient will benefit from increase in Zoloft provided he tolerates 100 mg daily which is his original dose. The patient is not psychiatrically cleared for discharge at this time. Tae Lovell MD
--- NOTE | 2016-12-21 12:43 | PCM.RRT ---
<Fabi Hogan - Last Filed: 12/21/16 14:10> RN L AND D Nurse Assessment - Situation Date: 12/21/16 Time RN L AND D was called: 11:18 RN L AND D Responder Arrival Time: 11:20 RN L AND D Location:: [address] [place] [address] Room Number: 272-1 RN L AND D Reason for Call: Change in Mental Status RN L AND D Called By: RN - IV IV Inserted during RN L AND D?: No - Respiratory Oxygen Delivery Method: Nasal Cannula @L/min Oxygen Flow Rate: 3 Received Nebulizer Treatments:: No Was the Patient Ventilated with Bag/Mask 100% O2?: No Secretions Suctioned?: Yes Was the Patient Intubated?: No Was the Patient Placed on a Ventilator?: No - Medication Medications Administered During RN L AND D: Ativan 2mg x 2, ativan 1mg X 1, total of 5mg - Diagnostic Test Ordered EKG: Yes Chest X-Ray: No CT Scan: No Other Diagnostic Test Ordered: EEG not available on thursday - Stat Labs Ordered RN L AND D Stat Labs Ordered: CBC, TROPONIN RN L AND D Other Labs Ordered: CMP, magnesium, phosphorus, prolactin CPR started during RN L AND D?: No - Vital Signs Vital Sign: Rapid Response Vital Sign Blood Pressure 154/84 Pulse Rate 72 Respiratory Rate 21 Temperature 98.2 F Oxygen Saturation 96 - Finger Stick Blood Glucose Finger Stick Blood Glucose: 108 - [place] Coma Scale Coma Scale Eye Opening: Spontaneous Coma Scale Motor: Obeys Commands Movement Coma Scale Verbal: Confused/able to answer - Time RN L AND D Ended Time RN L AND D Ended: 20:18 - Vital Signs at end of RN L AND D Vital Signs at end of RN L AND D: Rapid Response End Vital Sign Blood Pressure 125/70 Pulse Rate 81 Respiratory Rate 20 Temperature 98.2 F O2 Sat by Pulse Oximetry 97 - Recommendations 5) RN L AND D Level of Care Recommendations: Remain in current setting Notifications: Attending Physician I.Reason for RN L AND D - A) Acute Change in Patient: Subjective: seizure - Neurological Status (Select all that apply): Alert, Responsive, Oriented, Verbal, Follows Commands Other (Please specify): Minimal postictal - Respiratory Oxygen Delivery Method: Nasal Cannula @L/min Oxygen Flow Rate: 3 - Constitutional Appears: Well, No Acute Distress - Head Head Exam: ATRAUMATIC, NORMAL INSPECTION, NORMOCEPHALIC - Eyes Eye Exam: EOMI, Normal appearance, Nystagmus, PERRL. absent: Scleral icterus - Respiratory Exam Respiratory Exam: Clear to Ausculation Bilateral. absent: Rales, Rhonchi, Wheezes - Cardiovascular Exam Cardiovascular Exam: REGULAR RHYTHM, +S1, +S2 - GI/Abdominal Exam GI & Abdominal Exam: Soft, Normal Bowel Sounds. absent: Rigid, Tenderness, Rebound - Neurological Exam Neurological Exam: Alert, Awake, CN II-XII Intact, Motor Sensory Deficit (R bottom of sole numb, chronic. all motor strength 5/5), Oriented x3 - Extremities Exam Extremities Exam: Full ROM Plan - Assessment of Findings&Treatment Plan A: Unprovoked seizure, tonic only, witnessed, x 2 Reviewed AM lab and stat lab Glu 118 Trop < 0.01 EKG showed NSR with possible pericarditits. Pt has no CP, no SOB, denies n/v/ diaphoresis. Pt is stable in Rapid response call contect carbamazepine level tomorrow Per neuro (Dr. Margot Cartagena): Put pt on Tegretol, penobardital Continue klonopin, ativan 2q2 prn ICU transfer Pt is put on fosphenytoin 1580mg IV x 1 No EEG because service not available on Thursday neuro check q3, seizure precaution maintained s/r/d/w Dr. Mejia <Drew Mejia A - Last Filed: 12/21/16 14:26> RN L AND D Nurse Assessment - Vital Signs Vital Sign: Rapid Response Vital Sign Blood Pressure 154/84 Pulse Rate 72 Respiratory Rate 21 Temperature 98.2 F Oxygen Saturation 96 - Vital Signs at end of RN L AND D Vital Signs at end of RN L AND D: Rapid Response End Vital Sign Blood Pressure 125/70 Pulse Rate 81 Respiratory Rate 20 Temperature 98.2 F O2 Sat by Pulse Oximetry 97 Attending/Attestation - Attestation I have personally seen and examined this patient.: Yes I have fully participated in the care of the patient.: Yes I have reviewed all pertinent clinical information, including history, physical exam and plan: Yes Notes (Text): 12/21/16 14:25 3rd episode of seizure within 24 hrs seizure vs pseudoseizure antiepileptics give as above per neurology transferred to ICU
[2016-12-21 12:50] LABS: ALB/GLOB RATIO 1.3 (1.1-1.8); ALKALINE PHOSPHATASE 90 U/L (38-126); ALT/SGPT 94 U/L (7-56); AST/SGOT 62 U/L (17-59); BILIRUBIN,TOTAL 0.4 mg/dL (0.2-1.3); BLOOD UREA NITROGEN 13 mg/dL (7-21); CALCIUM 9.5 mg/dL (8.4-10.5); CARBON DIOXIDE 24 mmol/L (21-33); CHLORIDE 107 mmol/L (98-107); GFR AFRICAN-AMERICAN > 60; GLUCOSE,RANDOM 118 mg/dL (70-110); MAGNESIUM 2.1 mg/dL (1.7-2.2); PHOSPHOROUS 2.5 mg/dL (2.5-4.5); POTASSIUM 3.8 mmol/L (3.6-5.0); SODIUM 140 mmol/L (132-148); TOTAL PROTEIN 7.5 g/dL (5.8-8.3)
[2016-12-21 13:03] LABS: BASO # 0.01 K/mm3 (0.0-2.0); BASO % 0.2 % (0.0-3.0); EOS # 0.2 (0.0-0.7); EOS % 2.3 % (1.5-5.0); GRAN # 4.3 (1.4-6.5); GRAN % 64.7 % (50.0-68.0); HEMATOCRIT 42.5 % (42.0-52.0); LYMPH # 1.5 (1.2-3.4); LYMPH % 23.1 % (22.0-35.0); MEAN CORPUSCULAR HEMOGLOBIN 27.1 pg (25.0-35.0); MEAN CORPUSCULAR HGB CONC 34.4 g/dl (31.0-37.0); MEAN PLATELET VOLUME 9.7 fl (7.0-11.0); MONO # 0.6 (0.1-0.6); MONO % 9.7 % (1.0-6.0); RED CELL DISTRIBUTION WIDTH 14.8 % (11.5-14.5); WHITE BLOOD COUNT 6.6 10^3/ul (4.5-11.0)
[2016-12-21 13:11] LABS: TROPONIN I < 0.01 ng/mL
[2016-12-21] MEDS ORDERED: Fosphenytoin 100 mg/2 ml Inj IV ONE (14:04)
[2016-12-21] MEDS ORDERED: SODIUM CHLORIDE 0.9% IV ONE (14:30)
[2016-12-21] MEDS ORDERED: FOSPHENYTOIN IV ONE (14:30)
--- NOTE | 2016-12-21 15:00 | CON ---
NEUROLOGY CONSULTATION REASON FOR CONSULTATION: Seizures. HISTORY OF PRESENT ILLNESS: The patient is a 26-year-old male who came to the hospital on 12/18/2016 claiming that he has swallowed 4 bottles of medicine. Apparently, he was feeling sad and took extra dose of medication. The patient apparently had couple of seizures today. The patient was apparently having stiffness of the arms and eyes were rolled up. The patient's Tegretol level on admission was 15 and the next day it was 12 followed by 6 yesterday. The patient was started on Keppra yesterday. PAST MEDICAL HISTORY: Includes seizures, schizophrenia, asthma and depression. CURRENT MEDICATIONS: Include trazodone, Klonopin, Zofran and Zoloft. ALLERGIES: NO KNOWN DRUG ALLERGIES. SOCIAL HISTORY: The patient does smoke cigarettes. Denies use of alcohol or illicit drugs. FAMILY HISTORY: Noncontributory to the case. PHYSICAL EXAMINATION: GENERAL: The patient is a middle-aged male lying on the bed in no acute distress. VITAL SIGNS: His blood pressure is 125/70, heart rate is 81 per minute, breathing at the rate of 16 per minute and temperature 98.2 degree Fahrenheit. HEENT: Normocephalic and atraumatic. NECK: Supple. There are no carotid bruits. LUNGS: Clear. CARDIOVASCULAR: S1 and S2 audible. No murmurs. ABDOMEN: Soft and nontender with bowel sounds present. NEUROLOGY: Mental Status: The patient is awake, alert, oriented to place and person. Speech is fluent. Naming and repetition is normal. Memory and cognition are intact. Cranial Nerve Examination: Pupils are 4 mm bilaterally reactive to light. Visual hemphill are full. Extraocular movements are intact. There is no facial asymmetry. Tongue is midline. Motor Examination: Tone is normal. Power is 5/5 bilaterally in all extremities. Reflexes are +2 and symmetrical. Plantars downgoing bilaterally. LABORATORY DATA: Labs reviewed shows WBC of 5.9, hemoglobin of 13.7, hematocrit of 40.8 and platelets of 205. Sodium is 141, potassium 3.9, chloride 109, carbon dioxide content 23, BUN of 9, creatinine 0.7 and glucose of 96. Urine toxicology was positive for barbiturates. His carbamazepine level on admission was 15 and yesterday it was 6. IMPRESSION: 1. Breakthrough seizure with history of seizure disorder. 2. Status post overdose of prescription medications. RECOMMENDATIONS: 1. The patient had a CT scan of the head done yesterday which is negative for any intracranial pathology. 2. The patient to be restarted on Tegretol 200 mg every 8 hours. 3. The patient also restarted on his phenobarbital. 4. The patient to have seizure precautions. 5. If the patient continues to have seizure, then we will start the patient on maintenance dose of Keppra. 6. The patient is also taking trazodone. We will discontinue that because of the potential for having seizures. 7. Please continue supportive care and monitor closely. Thank you for the opportunity to participate in the care of this patient. Sony Cartagena MD
--- NOTE | 2016-12-21 15:24 | CP.PCM.PN ---
Subjective - Date & Time of Evaluation Date of Evaluation: 12/21/16 Time of Evaluation: 15:24 Objective - Vital Signs/Intake and Output Vital Signs (last 24 hours): Temp Pulse Resp BP Pulse Ox 97.8 F 74 20 90/44 L 95 12/21/16 06:00 12/21/16 10:00 12/21/16 06:00 12/21/16 06:00 12/21/16 06:00 Intake and Output: 12/21/16 12/21/16 06:59 18:59 Intake Total 480 Balance 480 - Medications Medications: Current Medications Acetaminophen (Tylenol 325mg Tab) 650 mg PO Q4H PRN PRN Reason: Pain, moderate (4-7) Carbamazepine (Tegretol) 200 mg PO Q8H ALEKSEY PRN Reason: Protocol Last Admin: 12/21/16 13:17 Dose: 200 mg Clonazepam (Klonopin) 1 mg PO AMHS ALEKSEY PRN Reason: Protocol Last Admin: 12/21/16 09:24 Dose: 1 mg Lorazepam (Ativan) 2 mg IVP Q2H PRN; Protocol PRN Reason: Seizure activity Last Admin: 12/21/16 11:52 Dose: 1 mg Ondansetron HCl (Zofran Inj) 4 mg IVP Q6H PRN PRN Reason: Nausea/Vomiting Phenobarbital (Phenobarbital Tab) 97.2 mg PO BID [facility] Last Admin: 12/21/16 13:15 Dose: 97.2 mg Sertraline HCl (Zoloft) 100 mg PO DAILY [facility] Last Admin: 12/21/16 09:24 Dose: 100 mg - Labs Labs: 12/21/16 12:50 12/21/16 12:00
[2016-12-21] MEDS ORDERED: Propofol 10 mg/ml 1,000 MG/100 ML VIAL ONE (16:39)
--- NOTE | 2016-12-21 17:05 | CP.PCM.PN ---
Subjective - Date & Time of Evaluation Date of Evaluation: 12/21/16 Time of Evaluation: 17:01 - Subjective Subjective: Code estrada. Family of pt is agitated for knowing that pt needs to be intubated for repeated seizure and possibly need to transfer to another facility that can provide continual seizure monitoring. Security came, and staff responded. Per security, family member calm down and proceed to exit the hospital. Objective - Vital Signs/Intake and Output Vital Signs (last 24 hours): Temp Pulse Resp BP Pulse Ox 97.8 F 74 20 90/44 L 95 12/21/16 06:00 12/21/16 10:00 12/21/16 06:00 12/21/16 06:00 12/21/16 06:00 Intake and Output: 12/21/16 12/21/16 06:59 18:59 Intake Total 480 Balance 480 - Medications Medications: Current Medications Acetaminophen (Tylenol 325mg Tab) 650 mg PO Q4H PRN PRN Reason: Pain, moderate (4-7) Carbamazepine (Tegretol) 200 mg PO Q8H ALEKSEY PRN Reason: Protocol Last Admin: 12/21/16 13:17 Dose: 200 mg Clonazepam (Klonopin) 1 mg PO AMHS ALEKSEY PRN Reason: Protocol Last Admin: 12/21/16 09:24 Dose: 1 mg Lorazepam (Ativan) 2 mg IVP Q2H PRN; Protocol PRN Reason: Seizure activity Last Admin: 12/21/16 11:52 Dose: 1 mg Ondansetron HCl (Zofran Inj) 4 mg IVP Q6H PRN PRN Reason: Nausea/Vomiting Phenobarbital (Phenobarbital Tab) 97.2 mg PO BID [facility] Last Admin: 12/21/16 13:15 Dose: 97.2 mg Sertraline HCl (Zoloft) 100 mg PO DAILY ALEKSEY Last Admin: 12/21/16 09:24 Dose: 100 mg - Labs Labs: 12/21/16 12:50 12/21/16 12:00
[2016-12-21] MEDS ORDERED: Rocuronium 10 mg/ml (5 ml) ONE (17:08)
[2016-12-21] MEDS ORDERED: Rocuronium 10 mg/ml (5 ml) IVP ONE (17:30)
[2016-12-21] MEDS ORDERED: Propofol 10 mg/ml Inj (20 ML) IVP ONE (17:30)
[2016-12-21] MEDS ORDERED: Sodium Chloride 0.9% 1,000 ML IV STA ×3 (17:30→17:45)
[2016-12-21] MEDS: Propofol 10 mg/ml 1,000 MG/100 ML VIAL IV PRN ×3 (17:45→22:02)
[2016-12-21 17:52] LABS: ARTERIAL BLOOD GAS HCO3 16.6 mmol/L (21-28); ARTERIAL BLOOD GAS O2 CAPACITY 15.5 mL/dl (16-24); ARTERIAL BLOOD GAS O2 CONTENT 10.6 ML/dl (15-23); ARTERIAL BLOOD HGB O2 SAT 67.1 % (95.0-98.0); CARBOXYHEMOGLOBIN 1.7 % (0.5-1.5); METHEMOGLOBIN 0.3 % (0.0-3.0)
[2016-12-21 17:53] LABS: ARTERIAL BLOOD GAS PH 6.87 (7.35-7.45)
[2016-12-21] MEDS ORDERED: Sodium Chloride 0.9% 1,000 ML IV SCH (18:00)
--- NOTE | 2016-12-21 18:05 | CARD ---
APPROVED REPORT EKG Measurement Heart [id number] OR [id number] <Conclusion> Normal sinus rhythm Possible Acute pericarditis vs early repolarization pattern Abnormal ECG
[2016-12-21 18:19] LABS: ATERIAL BLOOD GAS PEEP 15
[2016-12-21 18:21] LABS: ARTERIAL BLOOD GAS PH 7.19 (7.35-7.45)
--- NOTE | 2016-12-21 18:35 | CP.PCM.PN ---
Subjective - Date & Time of Evaluation Date of Evaluation: 12/21/16 Time of Evaluation: 18:20 - Subjective Subjective: Linda mcdonald in ICU waiting room S: Pt has 12 brothers. the brother in code mcdonald #1 is not in the building. the other brother is involved in code mcdonald #2. Pt was intubated for airway protection and status epilepticus. Family wants to transfer pt [facility] of [facility]. Dr. Vasquez notified. Family allowed to visit pt but 2 at a time and remains calm. Will s/r/d/w Dr Mejia Objective - Vital Signs/Intake and Output Vital Signs (last 24 hours): Temp Pulse Resp BP Pulse Ox 97.8 F 74 20 90/44 L 95 12/21/16 06:00 12/21/16 10:00 12/21/16 06:00 12/21/16 06:00 12/21/16 06:00 Intake and Output: 12/21/16 12/21/16 06:59 18:59 Intake Total 480 Balance 480 - Medications Medications: Current Medications Acetaminophen (Tylenol 325mg Tab) 650 mg PO Q4H PRN PRN Reason: Pain, moderate (4-7) Carbamazepine (Tegretol) 200 mg PO Q8H ALEKSEY PRN Reason: Protocol Last Admin: 12/21/16 13:17 Dose: 200 mg Clonazepam (Klonopin) 1 mg PO AMHS ALEKSEY PRN Reason: Protocol Last Admin: 12/21/16 09:24 Dose: 1 mg Propofol (Diprivan) 1,000 mg in 100 mls @ 3.162 mls/hr IV .Q24H PRN; Protocol; 5 MCG/KG/MIN PRN Reason: TITRATE PER MD ORDER Sodium Chloride (Sodium Chloride 0.9%) 1,000 mls @ 999 mls/hr IV .Q1H1M STA Stop: 12/21/16 18:30 Sodium Chloride (Sodium Chloride 0.9%) 1,000 mls @ 999 mls/hr IV .Q1H1M STA Stop: 12/21/16 18:30 Sodium Chloride (Sodium Chloride 0.9%) 1,000 mls @ 999 mls/hr IV .Q1H1M STA Stop: 12/21/16 18:45 Vancomycin HCl (Vancomycin 1gm) 1 gm in 250 mls @ 167 mls/hr IVPB Q12H ALEKSEY PRN Reason: Protocol Piperacillin Sod/Tazobactam Sod (Zosyn 3.375 In Ns 100ml) 100 mls @ 200 mls/hr IVPB Q6 ALEKSEY PRN Reason: Protocol Stop: 12/22/16 06:29 Lorazepam (Ativan) 2 mg IVP Q2H PRN; Protocol PRN Reason: Seizure activity Last Admin: 12/21/16 11:52 Dose: 1 mg Ondansetron HCl (Zofran Inj) 4 mg IVP Q6H PRN PRN Reason: Nausea/Vomiting Phenobarbital (Phenobarbital Tab) 97.2 mg PO BID [facility] Last Admin: 12/21/16 13:15 Dose: 97.2 mg Sertraline HCl (Zoloft) 100 mg PO DAILY [facility] Last Admin: 12/21/16 09:24 Dose: 100 mg - Labs Labs: 12/21/16 12:50 12/21/16 12:00
[2016-12-21 18:39] LABS: BASO # 0.01 K/mm3 (0.0-2.0); BASO % 0.2 % (0.0-3.0); EOS # 0.1 (0.0-0.7); EOS % 1.8 % (1.5-5.0); GRAN # 4.48 (1.4-6.5); GRAN % 67.8 % (50.0-68.0); HEMATOCRIT 46.3 % (42.0-52.0); LYMPH # 1.6 (1.2-3.4); LYMPH % 23.8 % (22.0-35.0); MEAN CELL VOLUME 79.8 fl (80.0-105.0); MEAN CORPUSCULAR HEMOGLOBIN 26.9 pg (25.0-35.0); MEAN CORPUSCULAR HGB CONC 33.7 g/dl (31.0-37.0); MEAN PLATELET VOLUME 9.3 fl (7.0-11.0); MONO # 0.4 (0.1-0.6); MONO % 6.4 % (1.0-6.0); RED CELL DISTRIBUTION WIDTH 14.9 % (11.5-14.5); WHITE BLOOD COUNT 6.6 10^3/ul (4.5-11.0)
[2016-12-21] MEDS: Vancomycin 1gm in NS 250ml 1 GM/250 ML BAG IVPB SCH (18:43)
[2016-12-21 18:45] LABS: ALB/GLOB RATIO 1.2 (1.1-1.8); ALKALINE PHOSPHATASE 111 U/L (38-126); ALT/SGPT 149 U/L (7-56); AST/SGOT 134 U/L (17-59); BILIRUBIN,TOTAL 0.4 mg/dL (0.2-1.3); BLOOD UREA NITROGEN 12 mg/dL (7-21); CALCIUM 7.8 mg/dL (8.4-10.5); CARBON DIOXIDE 19 mmol/L (21-33); CHLORIDE 108 mmol/L (98-107); GFR AFRICAN-AMERICAN > 60; GLUCOSE,RANDOM 186 mg/dL (70-110); MAGNESIUM 1.6 mg/dL (1.7-2.2); POTASSIUM 3.9 mmol/L (3.6-5.0); SODIUM 138 mmol/L (132-148); TOTAL PROTEIN 7.3 g/dL (5.8-8.3)
[2016-12-21] MEDS ORDERED: Cisatracurium Besylate 200 MG in Sodium Chloride 0.9% 250 ML IV SCH (19:15)
[2016-12-21] MEDS ORDERED: SODIUM CHLORIDE 0.9% IV SCH (19:15)
[2016-12-21] MEDS ORDERED: CISATRACURIUM BESYLATE IV SCH (19:15)
--- NOTE | 2016-12-21 20:05 | CON ---
DATE: 12/21/2016 HISTORY OF PRESENT ILLNESS: This is a 26-year-old gentleman with history of depression, seizure disorder, traumatic brain injury, who presented on 12/18/2016 to [facility] ER with drug overdose in a questionable suicidal attempt. It is unclear which exactly medication he swallowed prior to admission; however, his carbamazepine level was elevated and barbiturate serum was positive. Patient, however, had normal mental status up until yesterday when he had another breakthrough seizure. He, however, recovered very well. Later that afternoon he had another seizure requiring RRTeam. As patient recovered very quickly, no ICU consult was called. Patient recovered his mental status completely after each episode yesterday. Today, another rapid response was called due to patient 's tonic clonic seizures, however upon evaluation in postictal period patient was alert, awake and oriented x3. About 5 minutes into evaluation, patient had another witnessed tonic-clinic seizure treated with BZD. Outside the episodes of seizures, the patient remained alert and oriented x3, however due to concerns for crescendo frequency of his seizures, neuro at bedside and patient is accepted to ICU. No fever, no chills, no diarhea, no constipation. CTH yesterday--no acute IC pathology. Patient is complaining on muscle aches and facial tenderness/numbness even between tonic clonic seziures PAST MEDICAL HISTORY: Depression, seizure disorder. SOCIAL HISTORY: Patient is active smoker. No alcohol or illicit drug abuse. MEDICATIONS AT HOME: Phenobarbital 97.2 mg b.i.d. and Tegretol XR 400 mg p.o. b.i.d. ALLERGIES: NKDA. FAMILY HISTORY: Noncontributory. REVIEW OF SYSTEMS: Review of 12-organ systems other than mentioned in history of present illness is negative. PHYSICAL EXAMINATION: VITAL SIGNS: Temperature 98.2, blood pressure 120/80, heart rate 72, respiratory rate 21, oxygen saturation 97% on 3 L nasal cannula. HEAD AND NECK: Head and neck are atraumatic. LUNGS: Clear to auscultation bilaterally. HEART: Regular rate and rhythm. S1 and S2 normal. ABDOMEN: Soft, nontender and nondistended. MUSCULOSKELETAL: No C/C/E. NEUROLOGIC: The patient moves all extremities spontaneously. SKIN: Moist. PSYCHIATRIC: The patient is alert and oriented x3. LABORATORY DATA: U-tox positive for barbiturates and carbamazepine level in plasma 12. WBC 5.9, hemoglobin 13.7, platelet count 205. Lactic acid 1. Sodium 141, potassium 3.9, chloride 109, carbon dioxide 23, BUN 9, creatinine 0.7, AST 39, ALT 85. Blood glucose level 108. Accu-Chek more than 100. CURRENT MEDICATIONS: Tylenol p.r.n., Tegretol 200 mg p.o. at bedtime, Klonopin 1 mg p.o. a.m. and at bedtime, Ativan p.r.n., phenobarbital 97.2 mg p.o. b.i.d., Zoloft 100 mg p.o. daily. LABORATORY DATA: CAT scan of the head done yesterday did not reveal any acute intracranial pathology. EKG showed normal sinus rhythm. QTc 397, QRS 88. Chest x-ray, no active pulmonary disease. ASSESSMENT AND PLAN: This is a 26-year-old gentleman with uncontrolled seizure disorder and frequent seizures. Patient will have his medication adjusted. Neurology service input appreciated. Discussed the case with neurology service (Dr. Mitzi Mcclain): No need for transfer for continuous electroencephalography at present time as per neurology service. Patient is alert, awake, and oriented x3. He is hemodynamically and respiratory talley stable. He is able to protect his airways. We will just follow his labs for now and continue his antiseizure medication. We will repeat electroencephalography. We will continue to target euvolemia, euglycemia, normothermia, and oxygen saturation more than 90%. We will continue with deep venous thrombosis and gastrointestinal prophylaxis. Addendum: shortly after arrival at ICU, patient had another tonic seziure and received 5 mg of Ativan IV, however it didnt break it, thus 15 mg/kg fosphenytoin was given slowly with the dose and rate discussed with hospital pharmacist. Nevertheless shortly afterward patient had another tonic/clonic seizure and his mental status deteriorated, decision was made to intubate for airways protection, start propofol drip and transfer pt for continious EEG monitoring. This was discussed with Dr. Cartagena (neurology service) and agreed upon. Dr. Davenport at [facility] was contacted and accepted patient. Addendum: patient developed hypoxemic respiratory failure with b/l fluffy infiltrate. D/d flash pulmonary edema (due to adrenergic surge in the setting of status epilepticus and subsequent stunned myocardium) vs aspiration pneumonitis/pneumonia/ARDS. Patient is not stable for transfer at present time due to tenious respiratory status, requiring 100%fi02 and high PEEP. Will proceed with protective lung ventilation strategy, Vt 6 cc/pbw+Ppl<30, propofol drip, nimbex drip (for optimization pt/vent synchrony), conservative fluid and 02 management (Lasix was given), Echo, abx, septic workup, procal, ID consult, serial CXR, labs. Would obtain MRI of brain when more stable. When more stable from respiratory perspective, would still consider transfer for continious EEG monitoring, if agreed by neuro service ccm time 40 min Petr Vasquez MD MTDS[facility]
[2016-12-21 21:37] LABS: ARTERIAL BLOOD GAS HCO3 20.1 mmol/L (21-28); ARTERIAL BLOOD GAS O2 CAPACITY 21.5 mL/dl (16-24); ARTERIAL BLOOD GAS O2 CONTENT 21.3 ML/dl (15-23); ARTERIAL BLOOD GAS PH 7.31 (7.35-7.45); ARTERIAL BLOOD HGB O2 SAT 96.7 % (95.0-98.0); CARBOXYHEMOGLOBIN 1.5 % (0.5-1.5); HHB 0.7 % (0-5)
[2016-12-21] MEDS ORDERED: MethylPREDNISolone 40 mg Vial IVP SCH (22:00)
[2016-12-22] MEDS: Piperacillin/Tazobact 3.375 gm 100 ML IVPB SCH ×4 (00:31→19:20)
[2016-12-22] MEDS: Propofol 10 mg/ml 1,000 MG/100 ML VIAL IV PRN ×7 (00:50→23:07)
[2016-12-22 05:53] LABS: ARTERIAL BLOOD GAS HCO3 24.2 mmol/L (21-28); ARTERIAL BLOOD GAS O2 CAPACITY 20.6 mL/dl (16-24); ARTERIAL BLOOD GAS O2 CONTENT 20.5 ML/dl (15-23); ARTERIAL BLOOD HGB O2 SAT 97.6 % (95.0-98.0); HHB 0.5 % (0-5); METHEMOGLOBIN 0.9 % (0.0-3.0)
[2016-12-22] MEDS: Vancomycin 1gm in NS 250ml 1 GM/250 ML BAG IVPB SCH ×2 (06:02→19:21)
[2016-12-22 06:40] LABS: ALB/GLOB RATIO 1.2 (1.1-1.8); ALKALINE PHOSPHATASE 83 U/L (38-126); ALT/SGPT 127 U/L (7-56); AST/SGOT 69 U/L (17-59); BILIRUBIN,TOTAL 0.8 mg/dL (0.2-1.3); BLOOD UREA NITROGEN 12 mg/dL (7-21); CARBON DIOXIDE 25 mmol/L (21-33); CHLORIDE 104 mmol/L (95-110); GFR AFRICAN-AMERICAN > 60; GLUCOSE,RANDOM 77 mg/dL (70-110); MAGNESIUM 1.5 mg/dL (1.7-2.2); PHOSPHOROUS 4.5 mg/dL (2.5-4.5); POTASSIUM 4.3 mmol/L (3.6-5.0); SODIUM 138 mmol/L (132-148); TOTAL PROTEIN 7.2 g/dL (5.8-8.3)
[2016-12-22] MEDS ORDERED: Magnesium Sulfate 2 GM in Sodium Chloride 0.9% 100 ML IVPB ONE (07:17)
--- NOTE | 2016-12-22 07:17 | OP ---
PROCEDURE: Endotracheal intubation. INDICATION: Status epilepticus, hypoxemic respiratory failure and need for ventilatory support and to protect airways. OPERATORS: Dr. Petr Vasquez; Dr. Serjio Betancur; Dr. Sherine Carias DESCRIPTION OF PROCEDURE: Patient was sedated with Propofol, pre-oxygenated with 100% FiO2 via Ambu bag. Vital signs were monitored throughout the procedure and blood pressure was checked every one minute. NS bolus initiated. Direct laryngoscopy performed initially with MAC 3, then with MAC 4. First two attempts by Dr. Vasquez at inserting endotracheal tube were unsuccessful (Tianna et al, SONIDO 2017 RCT, Maximiliano et al, CHEST 2017 meta analysis) Dr. Carias attempted to use VL for EI, however unsuccessful Dr. Betancur took over, also using VL and NDNMB and trachea was intubated. Trachea was cannulated with 7.5 [place] endotracheal tube. Position was confirmed with gastric and bilateral lung auscultation, as well as changed end-tidal CO2 color after 8 respiratory cycles. Chest x-ray confirmed correct position of the endotracheal tube. Bilateral fluffy infiltrates identified on the chest x-ray. Protective lung ventilation strategy initiated with tidal volume 6 cc per predicted body weight and plateau pressure less then 30. D /d includes aspiration pneumonitis vs flash pulmonary edema, propfol drip started, Nimbex drip initiated, Lasix 20 mg IV given. Abx and septic workup started, Echo ordered. As patient was severely hypoxemic, requiring 100% fi02 and PEEP 15, decision was made to delay transfer as patient was not stable for transfer at present time. Petr Vasquez MD MAMTA
--- NOTE | 2016-12-22 07:25 | RAD ---
HISTORY: ET placement COMPARISON: 08/17/2016 FINDINGS: LUNGS: THERE HAS BEEN INTERVAL DEVELOPMENT OF EXTENSIVE OPACITY IN THE MID AND UPPER ASPECT OF BOTH LUNGS. THIS IS NONSPECIFIC AND MAY REFLECT BILATERAL PNEUMONIA. THE POSSIBILITY OF VIRAL PNEUMONIA MUST BE CONSIDERED. THIS MAY ALSO REFLECT ATYPICAL PULMONARY EDEMA. PLEURA: No significant pleural effusion identified, no pneumothorax apparent. CARDIOVASCULAR: Normal heart size. Endotracheal tube tip approximately 5.3 cm above the tracheal papi. OSSEOUS STRUCTURES: No significant abnormalities. VISUALIZED UPPER ABDOMEN: Normal. OTHER FINDINGS: None. IMPRESSION: Extensive bilateral mid and upper lobe opacity new since 12/18/2016. Possible bilateral pneumonia. ET tube appropriately positioned.
--- NOTE | 2016-12-22 07:45 | RAD ---
HISTORY: og tube placement COMPARISON: 12/21/2016 at 6:01 p.m. FINDINGS: LUNGS: Persistent extensive left-sided pulmonary opacity. Resolving right sided opacity with residual opacity in the right apex. PLEURA: No significant pleural effusion identified, no pneumothorax apparent. CARDIOVASCULAR: Normal heart size. ET tube unchanged. Nasogastric tube extends to central upper abdomen. OSSEOUS STRUCTURES: No significant abnormalities. VISUALIZED UPPER ABDOMEN: Normal. OTHER FINDINGS: None. IMPRESSION: Persistent extensive left-sided pulmonary opacity. Resolving right-sided opacity with residual right apical opacity. Possible bilateral pneumonia. Possible pulmonary edema, resolving.
--- NOTE | 2016-12-22 08:27 | RAD ---
HISTORY: intubation, PNA COMPARISON: 12/21/2016 FINDINGS: LUNGS: Almost complete resolution of left-sided pulmonary infiltrate. Almost complete resolution of right apical infiltrate. Possibly this represents resolving pulmonary edema. PLEURA: No significant pleural effusion identified, no pneumothorax apparent. CARDIOVASCULAR: Normal heart size. ET tube unchanged in position, position below the thoracic inlet and well above tracheal papi. Nasogastric tube extends to upper abdomen. OSSEOUS STRUCTURES: No significant abnormalities. VISUALIZED UPPER ABDOMEN: Normal. OTHER FINDINGS: None. IMPRESSION: Almost complete resolution of the diffuse left-sided infiltrate and right apical infiltrate. ET tube and NG tube are unchanged in position.
[2016-12-22 08:43] LABS: BASO # 0.01 K/mm3 (0.0-2.0); BASO % 0.1 % (0.0-3.0); EOS % 0.1 % (1.5-5.0); GRAN # 12.71 (1.4-6.5); GRAN % 85.6 % (50.0-68.0); HEMATOCRIT 42.7 % (42.0-52.0); LYMPH # 1.2 (1.2-3.4); MEAN CORPUSCULAR HEMOGLOBIN 26.6 pg (25.0-35.0); MEAN CORPUSCULAR HGB CONC 33.3 g/dl (31.0-37.0); MEAN PLATELET VOLUME 9.7 fl (7.0-11.0); MONO # 0.9 (0.1-0.6); MONO % 6.2 % (1.0-6.0); RED CELL DISTRIBUTION WIDTH 14.8 % (11.5-14.5); WHITE BLOOD COUNT 14.9 10^3/ul (4.5-11.0)
--- NOTE | 2016-12-22 08:56 | CP.PCM.PN ---
<Luis E Martinez - Last Filed: 12/22/16 12:08> Subjective - Date & Time of Evaluation Date of Evaluation: 12/22/16 Time of Evaluation: 08:51 - Subjective Subjective: Luis E Martinez DO, PGY-1, Hospitalist Services Patient seen and examined at bedside. Two sisters present at bedside. Patient is on Nimbex, Propafol, and intubated. Patient appears to be sweating. Objective - Vital Signs/Intake and Output Vital Signs (last 24 hours): Temp Pulse Resp BP Pulse Ox 98.8 F 89 35 H 130/67 80 L 12/22/16 04:00 12/22/16 06:00 12/22/16 07:40 12/22/16 06:00 12/22/16 07:40 Intake and Output: 12/22/16 12/22/16 06:59 18:59 Intake Total 1128 100 Output Total 2600 Balance -1472 100 - Medications Medications: Current Medications Acetaminophen (Tylenol 325mg Tab) 650 mg PO Q4H PRN PRN Reason: Pain, moderate (4-7) Carbamazepine (Tegretol) 200 mg PO Q8H ALEKSEY PRN Reason: Protocol Last Admin: 12/22/16 03:41 Dose: 200 mg Clonazepam (Klonopin) 1 mg PO AMHS ALEKSEY PRN Reason: Protocol Last Admin: 12/21/16 21:45 Dose: 1 mg Heparin Sodium (Porcine) (Heparin) 5,000 units SC Q12 ALEKSEY PRN Reason: Protocol Propofol (Diprivan) 1,000 mg in 100 mls @ 3.162 mls/hr IV .Q24H PRN; Protocol; 5 MCG/KG/MIN PRN Reason: TITRATE PER MD ORDER Last Admin: 12/22/16 07:47 Dose: 40 mcg/kg/min, 25.3 mls/hr Vancomycin HCl (Vancomycin 1gm) 1 gm in 250 mls @ 167 mls/hr IVPB Q12H ALEKSEY PRN Reason: Protocol Last Admin: 12/22/16 06:02 Dose: 167 mls/hr Piperacillin Sod/Tazobactam Sod (Zosyn 3.375 In Ns 100ml) 100 mls @ 200 mls/hr IVPB Q6 ALEKSEY PRN Reason: Protocol Stop: 12/29/16 00:01 Last Admin: 12/22/16 05:08 Dose: 200 mls/hr Cisatracurium Besylate 200 mg/ (Sodium Chloride) 200 mls @ 18.97 mls/hr IV .[id number] ALEKSEY; 3 MCG/KG/MIN PRN Reason: Protocol Last Admin: 12/22/16 00:15 Dose: 1.5 mcg/kg/min, 9.48 mls/hr Lorazepam (Ativan) 2 mg IVP Q2H PRN; Protocol PRN Reason: Seizure activity Last Admin: 12/21/16 21:06 Dose: 2 mg Ondansetron HCl (Zofran Inj) 4 mg IVP Q6H PRN PRN Reason: Nausea/Vomiting Pantoprazole Sodium (Protonix Susp) 40 mg PO 0600 ALEKSEY Phenobarbital (Phenobarbital Tab) 97.2 mg PO BID [facility] Last Admin: 12/21/16 18:38 Dose: Not Given Sertraline HCl (Zoloft) 100 mg PO DAILY [facility] Last Admin: 12/21/16 09:24 Dose: 100 mg - Labs Labs: 12/22/16 08:20 12/22/16 05:15 - Constitutional Appears: Non-toxic, No Acute Distress - Head Exam Head Exam: ATRAUMATIC, NORMOCEPHALIC - Eye Exam Eye Exam: Normal appearance, PERRL - Neck Exam Neck Exam: Normal Inspection - Respiratory Exam Additional comments: breath sounds heard bilaterally, patient is currently on ventilator - Cardiovascular Exam Cardiovascular Exam: RRR, +S1, +S2 - GI/Abdominal Exam GI & Abdominal Exam: Soft, Normal Bowel Sounds - Neurological Exam Additional comments: sedated on Propafol and on Nimbex - Skin Skin Exam: Normal Color, Warm. absent: Dry Assessment and Plan - Assessment and Plan (Free Text) Assessment: 26 year old admitted for carbamazepine and phenobarbital overdose who developed some epileptic event while on the hospital floors that were refractory to benzodiazepine and Keppra treatment, that eventual persisted into status epilepticus,requiring emergent intubation for airway protection and admission to the ICU. Currently patient is on nimbex, propafol, and on ventilator support. Plan: 1) Seizures refractory to Ativan and Keppra: - Patient intubated for airway protection in the ICU - Sedated with Propafol and Nimbex - Carbamazepine 200 mg q8h ALEKSEY - Phenobarbital 97.2 mg BID ALEKSEY - Clonazepam 1 mg AMHS - Ativan 1 mg q2h PRN for seizure activity. 2) Airway protection: - Ventilator setting on 50% FiO2, PEEP 15, RR 25, TV of 350 3) Bilateral patchy infiltrates - Zosyn and Vancomycin started empircally for possible HAP - Chest X-ray on 12/22 reads as almost complete resolution of right and left infiltrate, possibly representing resolution of pulmonary edema 4) Depression - Zoloft 100 mg daily 5) DVT/GI prophylaxis: - Heparin 5,000 U q12h - Protonix 40 mg daily <Bryant Navarro MD - Last Filed: 12/22/16 15:48> Objective - Vital Signs/Intake and Output Vital Signs (last 24 hours): Temp Pulse Resp BP Pulse Ox 98.8 F 89 35 H 130/67 80 L 12/22/16 04:00 12/22/16 06:00 12/22/16 07:40 12/22/16 06:00 12/22/16 07:40 Intake and Output: 12/22/16 12/22/16 06:59 18:59 Intake Total 1128 410 Output Total 2600 Balance -1472 410 - Medications Medications: Current Medications Acetaminophen (Tylenol 325mg Tab) 650 mg PO Q4H PRN PRN Reason: Pain, moderate (4-7) Carbamazepine (Tegretol) 200 mg PO Q8H ALEKSEY PRN Reason: Protocol Last Admin: 12/22/16 12:42 Dose: 200 mg Clonazepam (Klonopin) 1 mg PO AMHS ALEKSEY PRN Reason: Protocol Last Admin: 12/22/16 10:29 Dose: 1 mg Heparin Sodium (Porcine) (Heparin) 5,000 units SC Q12 ALEKSEY PRN Reason: Protocol Last Admin: 12/22/16 10:00 Dose: 5,000 units Propofol (Diprivan) 1,000 mg in 100 mls @ 3.162 mls/hr IV .Q24H PRN; Protocol; 5 MCG/KG/MIN PRN Reason: TITRATE PER MD ORDER Last Admin: 12/22/16 14:54 Dose: 45 mcg/kg/min, 28.462 mls/hr Vancomycin HCl (Vancomycin 1gm) 1 gm in 250 mls @ 167 mls/hr IVPB Q12H ALEKSEY PRN Reason: Protocol Last Admin: 12/22/16 06:02 Dose: 167 mls/hr Piperacillin Sod/Tazobactam Sod (Zosyn 3.375 In Ns 100ml) 100 mls @ 200 mls/hr IVPB Q6 ALEKSEY PRN Reason: Protocol Stop: 12/29/16 00:01 Last Admin: 12/22/16 12:42 Dose: 200 mls/hr Cisatracurium Besylate 200 mg/ (Sodium Chloride) 200 mls @ 18.97 mls/hr IV .[id number] ALEKSEY; 3 MCG/KG/MIN PRN Reason: Protocol Last Titration: 12/22/16 11:00 Dose: 0 mcg/kg/min, 0 mls/hr Fosphenytoin Sodium 100 mg/ (Dextrose) 52 mls @ 200 mls/hr IV Q8 ALEKSEY Last Admin: 12/22/16 14:53 Dose: 200 mls/hr Lorazepam (Ativan) 2 mg IVP Q2H PRN; Protocol PRN Reason: Seizure activity Last Admin: 12/21/16 21:06 Dose: 2 mg Ondansetron HCl (Zofran Inj) 4 mg IVP Q6H PRN PRN Reason: Nausea/Vomiting Pantoprazole Sodium (Protonix Susp) 40 mg PO 0600 ALEKSEY Phenobarbital (Phenobarbital Tab) 97.2 mg PO BID [facility] Last Admin: 12/22/16 10:28 Dose: 97.2 mg Sertraline HCl (Zoloft) 100 mg PO DAILY [facility] Last Admin: 12/22/16 10:29 Dose: 100 mg - Labs Labs: 12/22/16 08:20 12/22/16 05:15 Attending/Attestation - Attestation I have personally seen and examined this patient.: Yes I have fully participated in the care of the patient.: Yes I have reviewed all pertinent clinical information, including history, physical exam and plan: Yes Notes (Text): 12/22/16 15:46 Patient was seen and examined with medical staff assistant. Agreed with resident assessment and plan. 26 year old male with past medical history of seizure disorder and ?history of depression who presented with drug overdose after ingesting 4 bottles of medications with possible suicide attempt., had multiple seizure on floor and was intubated, also became hypoxic due to possible aspiration.Hypoxia is improving.Patient is on Respiratory support.Patient case was discussed with ICU and ID attending. Management plan was discussed in detail with patient family who is at bed side. Education was provided.
--- NOTE | 2016-12-22 10:31 | CP.PCM.CON ---
History of Present Illness - History of Present Illness History of Present Illness: 26 year old male with PMH of asthma, schizophrenia, seizure disorder, history of depression was initially admitted in [facility] for overdose of prescription medicine. HE developed a witnessed seizure yesterday and had to be intubated and is currently in the ICU for closer observation and management. CXR done showed bilateral infiltrates and Infectious Diseases consult is requested for possiblity of pneumonia in this patient. The patient is currently on the ventilator, developed low grade fevers overnight. Full review of systems is unobtainable due to the patient being intubated. Review of Systems - Review of Systems Systems not reviewed;Unavailable: Intubated Past Patient History - Infectious Disease Hx of Infectious Diseases: None - Past Social History Smoking Status: Current Some Days Smoker - MUSCULOSKELETAL/RHEUMATOLOGICAL Hx Falls: No - PSYCHIATRIC Hx Depression: Yes Hx Schizophrenia: Yes Hx Substance Use: No Other/Comment: hx suicidal attempt - ANESTHESIA Hx Anesthesia: No Meds Allergies/Adverse Reactions: Allergies Allergy/AdvReac Type Severity Reaction Status Date / Time No Known Allergies Allergy Verified 12/18/16 15:36 - Medications Medications: Current Medications Acetaminophen (Tylenol 325mg Tab) 650 mg PO Q4H PRN PRN Reason: Pain, moderate (4-7) Carbamazepine (Tegretol) 200 mg PO Q8H ALEKSEY PRN Reason: Protocol Last Admin: 12/21/16 13:17 Dose: 200 mg Clonazepam (Klonopin) 1 mg PO AMHS ALEKSEY PRN Reason: Protocol Last Admin: 12/21/16 09:24 Dose: 1 mg Propofol (Diprivan) 1,000 mg in 100 mls @ 3.162 mls/hr IV .Q24H PRN; Protocol; 5 MCG/KG/MIN PRN Reason: TITRATE PER MD ORDER Last Titration: 12/21/16 18:05 Dose: 30 mcg/kg/min, 18.975 mls/hr Sodium Chloride (Sodium Chloride 0.9%) 1,000 mls @ 999 mls/hr IV .Q1H1M STA Stop: 12/21/16 18:45 Vancomycin HCl (Vancomycin 1gm) 1 gm in 250 mls @ 167 mls/hr IVPB Q12H ALEKSEY PRN Reason: Protocol Piperacillin Sod/Tazobactam Sod (Zosyn 3.375 In Ns 100ml) 100 mls @ 200 mls/hr IVPB Q6 ALEKSEY PRN Reason: Protocol Stop: 12/29/16 00:01 Lorazepam (Ativan) 2 mg IVP Q2H PRN; Protocol PRN Reason: Seizure activity Last Admin: 12/21/16 11:52 Dose: 1 mg Ondansetron HCl (Zofran Inj) 4 mg IVP Q6H PRN PRN Reason: Nausea/Vomiting Phenobarbital (Phenobarbital Tab) 97.2 mg PO BID [facility] Last Admin: 12/21/16 13:15 Dose: 97.2 mg Sertraline HCl (Zoloft) 100 mg PO DAILY [facility] Last Admin: 12/21/16 09:24 Dose: 100 mg Physical Exam - Constitutional Appears: Other (on the ventilator and sedated) - Head Exam Head Exam: NORMAL INSPECTION - ENT Exam Additional comments: ET tube in place - Neck Exam Neck exam: Negative for: Meningismus - Respiratory Exam Respiratory Exam: Decreased Breath Sounds, Rales (scattered) - Cardiovascular Exam Cardiovascular Exam: +S1, +S2 - GI/Abdominal Exam GI & Abdominal Exam: Soft. absent: Tenderness Results - Vital Signs Recent Vital Signs: Last Vital Signs Temp 97.8 F 12/21/16 06:00 Pulse 74 12/21/16 10:00 Resp 20 12/21/16 06:00 BP 90/44 L 12/21/16 06:00 Pulse Ox 95 12/21/16 06:00 - Labs Result Diagrams: 12/22/16 08:20 12/22/16 05:15 Labs: Laboratory Results - last 24 hr 12/21/16 12/21/16 12/21/16 00:00 12:00 12:50 WBC 6.6 RBC 5.38 Hgb 14.6 Hct 42.5 MCV 79.0 L MCH 27.1 MCHC 34.4 RDW 14.8 H Plt Count 243 MPV 9.7 Gran % 64.7 Lymph % (Auto) 23.1 [place] % (Auto) 9.7 H Eos % (Auto) 2.3 Baso % (Auto) 0.2 Gran # 4.30 Lymph # 1.5 [place] # 0.6 Eos # 0.2 Baso # 0.01 pCO2 pO2 HCO3 ABG pH ABG Total CO2 ABG O2 Saturation ABG O2 Content ABG Base Excess ABG Hemoglobin ABG Carboxyhemoglobin POC ABG HHb (Measured) ABG Methemoglobin ABG O2 Capacity ABG Potassium Hgb O2 Saturation Glucose Lactate FiO2 Tidal Volume PEEP Sodium 140 Potassium 3.8 Chloride 107 Carbon Dioxide 24 Anion Gap 13 BUN 13 Creatinine 0.7 Est GFR ( Amer) > 60 Est GFR (Non-Af Amer) > 60 Random Glucose 118 H Calcium 9.5 Phosphorus 2.5 Magnesium 2.1 Total Bilirubin 0.4 AST 62 H D ALT 94 H Alkaline Phosphatase 90 Lactate Dehydrogenase 498 Total Creatine Kinase 114 Troponin I < 0.01 Total Protein 7.5 Albumin 4.3 Globulin 3.3 Albumin/Globulin Ratio 1.3 Prolactin 18.2 H Arterial Blood Potassium Urine Opiates Screen Negative Urine Methadone Screen Negative Ur Barbiturates Screen Positive H Ur Phencyclidine Scrn Negative Ur Amphetamines Screen Negative U Benzodiazepines Scrn Negative U Oth Cocaine Metabols Negative U Cannabinoids Screen Negative 12/21/16 12/21/16 17:40 18:10 WBC RBC Hgb Hct MCV MCH MCHC RDW Plt Count MPV Gran % Lymph % (Auto) [place] % (Auto) Eos % (Auto) Baso % (Auto) Gran # Lymph # [place] # Eos # Baso # pCO2 91 H* 55 H pO2 48.0 L 64.0 L HCO3 16.6 L 21.0 ABG pH 6.87 L* 7.19 L* ABG Total CO2 19.4 L 22.7 ABG O2 Saturation 68.4 L 92.2 L ABG O2 Content 10.6 L ABG Base Excess -17.5 L -7.9 L ABG Hemoglobin 11.2 L ABG Carboxyhemoglobin 1.7 H POC ABG HHb (Measured) 31.0 H ABG Methemoglobin 0.3 ABG O2 Capacity 15.5 L ABG Potassium 3.7 Hgb O2 Saturation 67.1 L Glucose 204 H Lactate 1.3 FiO2 21.0 100.0 Tidal Volume 450 PEEP 15 Sodium 138.0 Potassium Chloride 107.0 Carbon Dioxide Anion Gap BUN Creatinine Est GFR ( Amer) Est GFR (Non-Af Amer) Random Glucose Calcium Phosphorus Magnesium Total Bilirubin AST ALT Alkaline Phosphatase Lactate Dehydrogenase Total Creatine Kinase Troponin I Total Protein Albumin Globulin Albumin/Globulin Ratio Prolactin Arterial Blood Potassium 3.7 Urine Opiates Screen Urine Methadone Screen Ur Barbiturates Screen Ur Phencyclidine Scrn Ur Amphetamines Screen U Benzodiazepines Scrn U Oth Cocaine Metabols U Cannabinoids Screen Assessment & Plan - Assessment and Plan (Free Text) Plan: Assessment Systemic Inflammatory response syndrome with probably pulmonary edema, R/O severe sepsis with ventilator-dependent respiratory failure due to healthcare- associated pneumonia with aspiration in a patient who had a witnessed seizure in the hospital possible overdose on perscription medications asthma schizophrenia seizure disorder history of depression Plan Started patient on Vancomycin and Zosyn pending blood, sputum cx, PCT; CXR after the seizure showed bilateral pulmonary infiltrates - will check repeat CXR 's will monitor clinically
--- NOTE | 2016-12-22 12:00 | PN ---
DATE: SUBJECTIVE: The patient is lying on the bed on ventilator. Patient apparently was intubated after he had multiple seizures yesterday and put on Propofol. Patient was also loaded with fosphenytoin yesterday. PHYSICAL EXAMINATION: VITAL SIGNS: Blood pressure is 130/67, heart rate is 89 per minute, he is breathing at the rate of 12 per minute, temperature is 98.8 degrees Fahrenheit. HEENT: Normocephalic and atraumatic. NECK: Supple. There are no carotid bruits. LUNGS: Clear. CARDIOVASCULAR: S1 and S2 audible. No murmurs. ABDOMEN: Soft, nontender. Bowel sounds are present. NEUROLOGIC: Mental status: The patient is sedated at the moment. Cranial nerve examination: Pupils are 3 mm non reactive to light. . Absent corneal reflex. Motor examination, tone is decreased in all 4 extremities. He is not withdrawing extremities to noxious stimuli. The patient is sedated. Plantars, no response. IMPRESSION: 1. Seizure disorder with recurrent seizure. Patient being in status epilepticus. 2. Respiratory failure. RECOMMENDATION: 1. Patient was loaded with fosphenytoin yesterday. We will start her on fosphenytoin 100 mg every 8 hours. 2. Patient also will be continued on phenobarbital. 3. Patient to be continued on carbamazepine via NG tube. 4. Consider decreasing sedation and see how patient does. 5. Patient to had an electroencephalogram. Thank you for the opportunity to participate in the care of this patient. Sony Cartagena MD MTDD
[2016-12-22] MEDS: Fosphenytoin 100 MG in Dextrose 5% In Water 50 ML IV SCH ×2 (14:53→22:30)
--- NOTE | 2016-12-22 15:29 | CP.PCM.PCO ---
Physician Communication Note - Physician Communication Note Physician Communication Note: pt is intubated, please reconsult after extubation
--- NOTE | 2016-12-22 15:43 | CP.CCUPN ---
CCU Subjective - Physician Review Events Since Last Encounter (Free Text): 12/22/16 15:34 26 y/o M admitted for seizures with concern for SE. Intubated , sedated and paralyized overnight. Seen this morning to be awake and following commands . CCU Objective - Vital Signs / Intake & Output Intake and Output (Last 8hrs): Intake & Output 12/22/16 12/22/16 12/22/16 06:59 14:59 22:59 Intake Total 1028 410 Output Total 2600 Balance -1572 410 Weight 233 lb Intake: IV 968 410 Left Wrist 768 Oral 60 Output: Urine 2600 Urine, Voided 2600 Other: Voiding Method Urinal - Physical Exam Head: Positive for: Atraumatic, Normocephalic Pupils: Positive for: PERRL Extroacular Muscles: Positive for: EOMI Conjunctiva: Positive for: Normal Mouth: Positive for: Moist Mucous Membranes Neck: Positive for: Normal Range of Motion Respiratory/Chest: Positive for: Clear to Auscultation, Good Air Exchange. Negative for: Respiratory Distress, Accessory Muscle Use Cardiovascular: Positive for: Regular Rate and Rhythm, Normal S1, S2. Negative for: Murmurs Abdomen: Positive for: Normal Bowel Sounds. Negative for: Tenderness, Distention, Peritoneal Signs Back: Positive for: Normal Inspection Upper Extremity: Positive for: Normal Inspection. Negative for: Cyanosis, Edema Lower Extremity: Positive for: Normal Inspection. Negative for: Edema Neurological: Positive for: CN II-XII Intact, Speech Normal, Other (sedated, paralyzed ) Skin: Positive for: Warm, Dry, Normal Color. Negative for: Rashes Psychiatric: Positive for: Alert, Oriented x 3, Suicidal Ideation. Negative for : Homicidal Ideation - Medications Active Medications: Active Medications Generic Name Dose Route Start Last Admin Trade Name Freq PRN Reason Stop Dose Admin Acetaminophen 650 mg 12/20/16 20:35 Tylenol 325mg Tab PO Q4H PRN Pain, moderate (4-7) Carbamazepine 200 mg 12/21/16 11:45 12/22/16 12:42 Tegretol PO 200 mg Q8H ALEKSEY Administration Protocol Clonazepam 1 mg 12/20/16 22:00 12/22/16 10:29 Klonopin PO 1 mg AMHS ALEKSEY Administration Protocol Heparin Sodium (Porcine) 5,000 units 12/22/16 10:00 12/22/16 10:00 Heparin SC 5,000 units Q12 ALEKSEY Administration Protocol Propofol 1,000 mg in 100 mls @ 3.162 mls/hr 12/21/16 17:52 12/22/16 14:54 Diprivan IV 45 mcg/kg/min .Q24H PRN 28.462 mls/hr TITRATE PER MD ORDER Administration Protocol 5 MCG/KG/MIN Vancomycin HCl 1 gm in 250 mls @ 167 mls/hr 12/21/16 18:15 12/22/16 06:02 Vancomycin 1gm IVPB 167 mls/hr Q12H ALEKSEY Administration Protocol Piperacillin Sod/Tazobactam Sod 100 mls @ 200 mls/hr 12/22/16 00:00 12/22/16 12:42 Zosyn 3.375 In Ns 100ml IVPB 12/29/16 00:01 200 mls/hr Q6 ALEKSEY Administration Protocol Cisatracurium Besylate 200 mg/ 200 mls @ 18.97 mls/hr 12/22/16 00:59 11:00 Sodium Chloride IV 0 mcg/kg/min .[id number] ALEKSEY 0 mls/hr Protocol Titration 3 MCG/KG/MIN Fosphenytoin Sodium 100 mg/ 52 mls @ 200 mls/hr 12/22/16 14:00 12/22/16 14:53 Dextrose IV 200 mls/hr Q8 ALEKSEY Administration Lorazepam 2 mg 12/20/16 20:15 12/21/16 21:06 Ativan IVP 2 mg Q2H PRN Administration Seizure activity Protocol Ondansetron HCl 4 mg 12/18/16 21:15 Zofran Inj IVP Q6H PRN Nausea/Vomiting Pantoprazole Sodium 40 mg 12/23/16 06:00 Protonix Susp PO 0600 ALEKSEY Phenobarbital 97.2 mg 12/21/16 11:45 12/22/16 10:28 Phenobarbital Tab PO 97.2 mg BID ALEKSEY Administration Sertraline HCl 100 mg 12/21/16 10:00 12/22/16 10:29 Zoloft PO 100 mg DAILY ALEKSEY Administration - Patient Studies Lab Studies: Microbiology Studies 12/21/16 12:00 MRSA Culture (Admit) - Final Nose MRSA NOT DETECTED Lab Studies 12/22/16 12/22/16 12/22/16 Range/Units 08:20 05:35 05:30 WBC 14.9 H D (4.5-11.0) 10^3/ul RBC 5.34 (3.5-6.1) 10^6/uL Hgb 14.2 (14.0-18.0) g/dL Hct 42.7 (42.0-52.0) % MCV 80.0 (80.0-105.0) fl MCH 26.6 (25.0-35.0) pg MCHC 33.3 (31.0-37.0) g/dl RDW 14.8 H (11.5-14.5) % Plt Count 211 (120.0-450.0) 10^3/uL MPV 9.7 (7.0-11.0) fl Gran % 85.6 H (50.0-68.0) % Lymph % (Auto) 8.0 L (22.0-35.0) % [place] % (Auto) 6.2 H (1.0-6.0) % Eos % (Auto) 0.1 L (1.5-5.0) % Baso % (Auto) 0.1 (0.0-3.0) % Gran # 12.71 H (1.4-6.5) Lymph # 1.2 (1.2-3.4) [place] # 0.9 H (0.1-0.6) Eos # 0.0 (0.0-0.7) Baso # 0.01 (0.0-2.0) K/mm3 pCO2 39 (35-45) mm/Hg pO2 344.0 H (80-100) mm/Hg HCO3 24.2 (21-28) mmol/L ABG pH 7.40 (7.35-7.45) ABG Total CO2 25.4 (22-28) mmol.L ABG O2 Saturation 99.5 H (95-98) % ABG O2 Content 20.5 (15-23) ML/dl ABG Base Excess -0.5 (-2.0-3.0) mmol/L ABG Hemoglobin 14.3 (11.7-17.4) g/dL ABG Carboxyhemoglobin 1.0 (0.5-1.5) % POC ABG HHb (Measured) 0.5 (0-5) % ABG Methemoglobin 0.9 (0.0-3.0) % ABG O2 Capacity 20.6 (16-24) mL/dl ABG Potassium (3.6-5.2) mmol/L Hgb O2 Saturation 97.6 (95.0-98.0) % Sodium (132-148) mmol/L Chloride (98-107) mmol/L Glucose (75-110) mg/dl Lactate (0.7-2.1) mmol/L FiO2 80.0 % Tidal Volume PEEP Potassium (3.6-5.0) mmol/L Carbon Dioxide (21-33) mmol/L Anion Gap (10-20) BUN (7-21) mg/dL Creatinine (0.5-1.4) mg/dL Est GFR ( Amer) Est GFR (Non-Af Amer) Random Glucose (70-110) mg/dL Calcium (8.4-10.5) mg/dL Phosphorus (2.5-4.5) mg/dL Magnesium (1.7-2.2) mg/dL Total Bilirubin (0.2-1.3) mg/dL AST (17-59) U/L ALT (7-56) U/L Alkaline Phosphatase (38-126) U/L Total Protein (5.8-8.3) g/dL Albumin (3.0-4.8) g/dL Globulin gm/dL Albumin/Globulin Ratio (1.1-1.8) Arterial Blood Potassium (3.6-5.2) mmol/L Phenytoin 3 L (10-20) ug/mL Carbamazepine (4.0-10.0) ug/mL Hepatitis A IgM Ab (NEGATIVE) Hep Bs Antigen (NEGATIVE) Hep B Core IgM Ab (NEGATIVE) Hepatitis C Antibody (NEGATIVE) HIV 1&2 Ag/Ab, 4th Gen (Nonreactive) 12/22/16 12/22/16 12/22/16 Range/Units 05:15 05:15 05:15 WBC Cancelled (4.5-11.0) 10^3/ul RBC Cancelled (3.5-6.1) 10^6/uL Hgb Cancelled (14.0-18.0) g/dL Hct Cancelled (42.0-52.0) % MCV Cancelled (80.0-105.0) fl MCH Cancelled (25.0-35.0) pg MCHC Cancelled (31.0-37.0) g/dl RDW Cancelled (11.5-14.5) % Plt Count Cancelled (120.0-450.0) 10^3/uL MPV Cancelled (7.0-11.0) fl Gran % Cancelled (50.0-68.0) % Lymph % (Auto) Cancelled (22.0-35.0) % [place] % (Auto) Cancelled (1.0-6.0) % Eos % (Auto) Cancelled (1.5-5.0) % Baso % (Auto) Cancelled (0.0-3.0) % Gran # Cancelled (1.4-6.5) Lymph # Cancelled (1.2-3.4) [place] # Cancelled (0.1-0.6) Eos # Cancelled (0.0-0.7) Baso # Cancelled (0.0-2.0) K/mm3 pCO2 (35-45) mm/Hg pO2 (80-100) mm/Hg HCO3 (21-28) mmol/L ABG pH (7.35-7.45) ABG Total CO2 (22-28) mmol.L ABG O2 Saturation (95-98) % ABG O2 Content (15-23) ML/dl ABG Base Excess (-2.0-3.0) mmol/L ABG Hemoglobin (11.7-17.4) g/dL ABG Carboxyhemoglobin (0.5-1.5) % POC ABG HHb (Measured) (0-5) % ABG Methemoglobin (0.0-3.0) % ABG O2 Capacity (16-24) mL/dl ABG Potassium (3.6-5.2) mmol/L Hgb O2 Saturation (95.0-98.0) % Sodium 138 (132-148) mmol/L Chloride 104 (98-107) mmol/L Glucose (75-110) mg/dl Lactate (0.7-2.1) mmol/L FiO2 % Tidal Volume PEEP Potassium 4.3 (3.6-5.0) mmol/L Carbon Dioxide 25 (21-33) mmol/L Anion Gap 13 (10-20) BUN 12 (7-21) mg/dL Creatinine 0.7 (0.5-1.4) mg/dL Est GFR ( Amer) > 60 Est GFR (Non-Af Amer) > 60 Random Glucose 77 (70-110) mg/dL Calcium 9.0 (8.4-10.5) mg/dL Phosphorus 4.5 (2.5-4.5) mg/dL Magnesium 1.5 L (1.7-2.2) mg/dL Total Bilirubin 0.8 (0.2-1.3) mg/dL AST 69 H D (17-59) U/L ALT 127 H (7-56) U/L Alkaline Phosphatase 83 (38-126) U/L Total Protein 7.2 (5.8-8.3) g/dL Albumin 3.9 (3.0-4.8) g/dL Globulin 3.3 gm/dL Albumin/Globulin Ratio 1.2 (1.1-1.8) Arterial Blood Potassium (3.6-5.2) mmol/L Phenytoin (10-20) ug/mL Carbamazepine < 3 L (4.0-10.0) ug/mL Hepatitis A IgM Ab (NEGATIVE) Hep Bs Antigen (NEGATIVE) Hep B Core IgM Ab (NEGATIVE) Hepatitis C Antibody (NEGATIVE) HIV 1&2 Ag/Ab, 4th Gen (Nonreactive) 12/21/16 12/21/16 12/21/16 Range/Units 21:20 18:15 18:15 WBC (4.5-11.0) 10^3/ul RBC (3.5-6.1) 10^6/uL Hgb (14.0-18.0) g/dL Hct (42.0-52.0) % MCV (80.0-105.0) fl MCH (25.0-35.0) pg MCHC (31.0-37.0) g/dl RDW (11.5-14.5) % Plt Count (120.0-450.0) 10^3/uL MPV (7.0-11.0) fl Gran % (50.0-68.0) % Lymph % (Auto) (22.0-35.0) % [place] % (Auto) (1.0-6.0) % Eos % (Auto) (1.5-5.0) % Baso % (Auto) (0.0-3.0) % Gran # (1.4-6.5) Lymph # (1.2-3.4) [place] # (0.1-0.6) Eos # (0.0-0.7) Baso # (0.0-2.0) K/mm3 pCO2 40 (35-45) mm/Hg pO2 133.0 H (80-100) mm/Hg HCO3 20.1 L (21-28) mmol/L ABG pH 7.31 L (7.35-7.45) ABG Total CO2 21.3 L (22-28) mmol.L ABG O2 Saturation 99.3 H (95-98) % ABG O2 Content 21.3 (15-23) ML/dl ABG Base Excess -5.8 L (-2.0-3.0) mmol/L ABG Hemoglobin 15.5 (11.7-17.4) g/dL ABG Carboxyhemoglobin 1.5 (0.5-1.5) % POC ABG HHb (Measured) 0.7 (0-5) % ABG Methemoglobin 1.0 (0.0-3.0) % ABG O2 Capacity 21.5 (16-24) mL/dl ABG Potassium (3.6-5.2) mmol/L Hgb O2 Saturation 96.7 (95.0-98.0) % Sodium 138 (132-148) mmol/L Chloride 108 H (98-107) mmol/L Glucose (75-110) mg/dl Lactate (0.7-2.1) mmol/L FiO2 100.0 % Tidal Volume PEEP Potassium 3.9 (3.6-5.0) mmol/L Carbon Dioxide 19 L (21-33) mmol/L Anion Gap 15 (10-20) BUN 12 (7-21) mg/dL Creatinine 0.6 (0.5-1.4) mg/dL Est GFR ( Amer) > 60 Est GFR (Non-Af Amer) > 60 Random Glucose 186 H (70-110) mg/dL Calcium 7.8 L (8.4-10.5) mg/dL Phosphorus 5.0 H (2.5-4.5) mg/dL Magnesium 1.6 L (1.7-2.2) mg/dL Total Bilirubin 0.4 (0.2-1.3) mg/dL AST 134 H D (17-59) U/L ALT 149 H (7-56) U/L Alkaline Phosphatase 111 (38-126) U/L Total Protein 7.3 (5.8-8.3) g/dL Albumin 4.1 (3.0-4.8) g/dL Globulin 3.3 gm/dL Albumin/Globulin Ratio 1.2 (1.1-1.8) Arterial Blood Potassium (3.6-5.2) mmol/L Phenytoin (10-20) ug/mL Carbamazepine (4.0-10.0) ug/mL Hepatitis A IgM Ab (NEGATIVE) Hep Bs Antigen (NEGATIVE) Hep B Core IgM Ab (NEGATIVE) Hepatitis C Antibody (NEGATIVE) HIV 1&2 Ag/Ab, 4th Gen Nonreactive (Nonreactive) 12/21/16 12/21/16 12/21/16 Range/Units 18:15 18:10 17:40 WBC 6.6 (4.5-11.0) 10^3/ul RBC 5.80 (3.5-6.1) 10^6/uL Hgb 15.6 (14.0-18.0) g/dL Hct 46.3 (42.0-52.0) % MCV 79.8 L (80.0-105.0) fl MCH 26.9 (25.0-35.0) pg MCHC 33.7 (31.0-37.0) g/dl RDW 14.9 H (11.5-14.5) % Plt Count 220 (120.0-450.0) 10^3/uL MPV 9.3 (7.0-11.0) fl Gran % 67.8 (50.0-68.0) % Lymph % (Auto) 23.8 (22.0-35.0) % [place] % (Auto) 6.4 H (1.0-6.0) % Eos % (Auto) 1.8 (1.5-5.0) % Baso % (Auto) 0.2 (0.0-3.0) % Gran # 4.48 (1.4-6.5) Lymph # 1.6 (1.2-3.4) [place] # 0.4 (0.1-0.6) Eos # 0.1 (0.0-0.7) Baso # 0.01 (0.0-2.0) K/mm3 pCO2 55 H 91 H* (35-45) mm/Hg pO2 64.0 L 48.0 L (80-100) mm/Hg HCO3 21.0 16.6 L (21-28) mmol/L ABG pH 7.19 L* 6.87 L* (7.35-7.45) ABG Total CO2 22.7 19.4 L (22-28) mmol.L ABG O2 Saturation 92.2 L 68.4 L (95-98) % ABG O2 Content 10.6 L (15-23) ML/dl ABG Base Excess -7.9 L -17.5 L (-2.0-3.0) mmol/L ABG Hemoglobin 11.2 L (11.7-17.4) g/dL ABG Carboxyhemoglobin 1.7 H (0.5-1.5) % POC ABG HHb (Measured) 31.0 H (0-5) % ABG Methemoglobin 0.3 (0.0-3.0) % ABG O2 Capacity 15.5 L (16-24) mL/dl ABG Potassium 3.7 (3.6-5.2) mmol/L Hgb O2 Saturation 67.1 L (95.0-98.0) % Sodium 138.0 (132-148) mmol/L Chloride 107.0 (98-107) mmol/L Glucose 204 H (75-110) mg/dl Lactate 1.3 (0.7-2.1) mmol/L FiO2 100.0 21.0 % Tidal Volume 450 PEEP 15 Potassium (3.6-5.0) mmol/L Carbon Dioxide (21-33) mmol/L Anion Gap (10-20) BUN (7-21) mg/dL Creatinine (0.5-1.4) mg/dL Est GFR ( Amer) Est GFR (Non-Af Amer) Random Glucose (70-110) mg/dL Calcium (8.4-10.5) mg/dL Phosphorus (2.5-4.5) mg/dL Magnesium (1.7-2.2) mg/dL Total Bilirubin (0.2-1.3) mg/dL AST (17-59) U/L ALT (7-56) U/L Alkaline Phosphatase (38-126) U/L Total Protein (5.8-8.3) g/dL Albumin (3.0-4.8) g/dL Globulin gm/dL Albumin/Globulin Ratio (1.1-1.8) Arterial Blood Potassium 3.7 (3.6-5.2) mmol/L Phenytoin (10-20) ug/mL Carbamazepine (4.0-10.0) ug/mL Hepatitis A IgM Ab (NEGATIVE) Hep Bs Antigen (NEGATIVE) Hep B Core IgM Ab (NEGATIVE) Hepatitis C Antibody (NEGATIVE) HIV 1&2 Ag/Ab, 4th Gen (Nonreactive) 12/20/16 Range/Units 12:39 WBC (4.5-11.0) 10^3/ul RBC (3.5-6.1) 10^6/uL Hgb (14.0-18.0) g/dL Hct (42.0-52.0) % MCV (80.0-105.0) fl MCH (25.0-35.0) pg MCHC (31.0-37.0) g/dl RDW (11.5-14.5) % Plt Count (120.0-450.0) 10^3/uL MPV (7.0-11.0) fl Gran % (50.0-68.0) % Lymph % (Auto) (22.0-35.0) % [place] % (Auto) (1.0-6.0) % Eos % (Auto) (1.5-5.0) % Baso % (Auto) (0.0-3.0) % Gran # (1.4-6.5) Lymph # (1.2-3.4) [place] # (0.1-0.6) Eos # (0.0-0.7) Baso # (0.0-2.0) K/mm3 pCO2 (35-45) mm/Hg pO2 (80-100) mm/Hg HCO3 (21-28) mmol/L ABG pH (7.35-7.45) ABG Total CO2 (22-28) mmol.L ABG O2 Saturation (95-98) % ABG O2 Content (15-23) ML/dl ABG Base Excess (-2.0-3.0) mmol/L ABG Hemoglobin (11.7-17.4) g/dL ABG Carboxyhemoglobin (0.5-1.5) % POC ABG HHb (Measured) (0-5) % ABG Methemoglobin (0.0-3.0) % ABG O2 Capacity (16-24) mL/dl ABG Potassium (3.6-5.2) mmol/L Hgb O2 Saturation (95.0-98.0) % Sodium (132-148) mmol/L Chloride (98-107) mmol/L Glucose (75-110) mg/dl Lactate (0.7-2.1) mmol/L FiO2 % Tidal Volume PEEP Potassium (3.6-5.0) mmol/L Carbon Dioxide (21-33) mmol/L Anion Gap (10-20) BUN (7-21) mg/dL Creatinine (0.5-1.4) mg/dL Est GFR ( Amer) Est GFR (Non-Af Amer) Random Glucose (70-110) mg/dL Calcium (8.4-10.5) mg/dL Phosphorus (2.5-4.5) mg/dL Magnesium (1.7-2.2) mg/dL Total Bilirubin (0.2-1.3) mg/dL AST (17-59) U/L ALT (7-56) U/L Alkaline Phosphatase (38-126) U/L Total Protein (5.8-8.3) g/dL Albumin (3.0-4.8) g/dL Globulin gm/dL Albumin/Globulin Ratio (1.1-1.8) Arterial Blood Potassium (3.6-5.2) mmol/L Phenytoin (10-20) ug/mL Carbamazepine (4.0-10.0) ug/mL Hepatitis A IgM Ab Negative (NEGATIVE) Hep Bs Antigen Negative (NEGATIVE) Hep B Core IgM Ab Negative (NEGATIVE) Hepatitis C Antibody Negative (NEGATIVE) HIV 1&2 Ag/Ab, 4th Gen (Nonreactive) Laboratory Results - last 24 hr 12/20/16 12/21/1617 12:39 17:40 18:10 WBC RBC Hgb Hct MCV MCH MCHC RDW Plt Count MPV Gran % Lymph % (Auto) [place] % (Auto) Eos % (Auto) Baso % (Auto) Gran # Lymph # [place] # Eos # Baso # pCO2 91 H* 55 H pO2 48.0 L 64.0 L HCO3 16.6 L 21.0 ABG pH 6.87 L* 7.19 L* ABG Total CO2 19.4 L 22.7 ABG O2 Saturation 68.4 L 92.2 L ABG O2 Content 10.6 L ABG Base Excess -17.5 L -7.9 L ABG Hemoglobin 11.2 L ABG Carboxyhemoglobin 1.7 H POC ABG HHb (Measured) 31.0 H ABG Methemoglobin 0.3 ABG O2 Capacity 15.5 L ABG Potassium 3.7 Hgb O2 Saturation 67.1 L Sodium 138.0 Chloride 107.0 Glucose 204 H Lactate 1.3 FiO2 21.0 100.0 Tidal Volume 450 PEEP 15 Potassium Carbon Dioxide Anion Gap BUN Creatinine Est GFR ( Amer) Est GFR (Non-Af Amer) Random Glucose Calcium Phosphorus Magnesium Total Bilirubin AST ALT Alkaline Phosphatase Total Protein Albumin Globulin Albumin/Globulin Ratio Arterial Blood Potassium 3.7 Phenytoin Carbamazepine Hepatitis A IgM Ab Negative Hep Bs Antigen Negative Hep B Core IgM Ab Negative Hepatitis C Antibody Negative HIV 1&2 Ag/Ab, 4th Gen 12/21/16 12/21/16 12/21/16 18:15 18:15 18:15 WBC 6.6 RBC 5.80 Hgb 15.6 Hct 46.3 MCV 79.8 L MCH 26.9 MCHC 33.7 RDW 14.9 H Plt Count 220 MPV 9.3 Gran % 67.8 Lymph % (Auto) 23.8 [place] % (Auto) 6.4 H Eos % (Auto) 1.8 Baso % (Auto) 0.2 Gran # 4.48 Lymph # 1.6 [place] # 0.4 Eos # 0.1 Baso # 0.01 pCO2 pO2 HCO3 ABG pH ABG Total CO2 ABG O2 Saturation ABG O2 Content ABG Base Excess ABG Hemoglobin ABG Carboxyhemoglobin POC ABG HHb (Measured) ABG Methemoglobin ABG O2 Capacity ABG Potassium Hgb O2 Saturation Sodium 138 Chloride 108 H Glucose Lactate FiO2 Tidal Volume PEEP Potassium 3.9 Carbon Dioxide 19 L Anion Gap 15 BUN 12 Creatinine 0.6 Est GFR ( Amer) > 60 Est GFR (Non-Af Amer) > 60 Random Glucose 186 H Calcium 7.8 L Phosphorus 5.0 H Magnesium 1.6 L Total Bilirubin 0.4 AST 134 H D ALT 149 H Alkaline Phosphatase 111 Total Protein 7.3 Albumin 4.1 Globulin 3.3 Albumin/Globulin Ratio 1.2 Arterial Blood Potassium Phenytoin Carbamazepine Hepatitis A IgM Ab Hep Bs Antigen Hep B Core IgM Ab Hepatitis C Antibody HIV 1&2 Ag/Ab, 4th Gen Nonreactive 12/21/16 12/22/16 12/22/16 21:20 05:15 05:15 WBC Cancelled RBC Cancelled Hgb Cancelled Hct Cancelled MCV Cancelled MCH Cancelled MCHC Cancelled RDW Cancelled Plt Count Cancelled MPV Cancelled Gran % Cancelled Lymph % (Auto) Cancelled [place] % (Auto) Cancelled Eos % (Auto) Cancelled Baso % (Auto) Cancelled Gran # Cancelled Lymph # Cancelled [place] # Cancelled Eos # Cancelled Baso # Cancelled pCO2 40 pO2 133.0 H HCO3 20.1 L ABG pH 7.31 L ABG Total CO2 21.3 L ABG O2 Saturation 99.3 H ABG O2 Content 21.3 ABG Base Excess -5.8 L ABG Hemoglobin 15.5 ABG Carboxyhemoglobin 1.5 POC ABG HHb (Measured) 0.7 ABG Methemoglobin 1.0 ABG O2 Capacity 21.5 ABG Potassium Hgb O2 Saturation 96.7 Sodium Chloride Glucose Lactate FiO2 100.0 Tidal Volume PEEP Potassium Carbon Dioxide Anion Gap BUN Creatinine Est GFR ( Amer) Est GFR (Non-Af Amer) Random Glucose Calcium Phosphorus Magnesium Total Bilirubin AST ALT Alkaline Phosphatase Total Protein Albumin Globulin Albumin/Globulin Ratio Arterial Blood Potassium Phenytoin Carbamazepine < 3 L Hepatitis A IgM Ab Hep Bs Antigen Hep B Core IgM Ab Hepatitis C Antibody HIV 1&2 Ag/Ab, 4th Gen 12/22/16 12/22/16 12/22/16 05:15 05:30 05:35 WBC RBC Hgb Hct MCV MCH MCHC RDW Plt Count MPV Gran % Lymph % (Auto) [place] % (Auto) Eos % (Auto) Baso % (Auto) Gran # Lymph # [place] # Eos # Baso # pCO2 39 pO2 344.0 H HCO3 24.2 ABG pH 7.40 ABG Total CO2 25.4 ABG O2 Saturation 99.5 H ABG O2 Content 20.5 ABG Base Excess -0.5 ABG Hemoglobin 14.3 ABG Carboxyhemoglobin 1.0 POC ABG HHb (Measured) 0.5 ABG Methemoglobin 0.9 ABG O2 Capacity 20.6 ABG Potassium Hgb O2 Saturation 97.6 Sodium 138 Chloride 104 Glucose Lactate FiO2 80.0 Tidal Volume PEEP Potassium 4.3 Carbon Dioxide 25 Anion Gap 13 BUN 12 Creatinine 0.7 Est GFR ( Amer) > 60 Est GFR (Non-Af Amer) > 60 Random Glucose 77 Calcium 9.0 Phosphorus 4.5 Magnesium 1.5 L Total Bilirubin 0.8 AST 69 H D ALT 127 H Alkaline Phosphatase 83 Total Protein 7.2 Albumin 3.9 Globulin 3.3 Albumin/Globulin Ratio 1.2 Arterial Blood Potassium Phenytoin 3 L Carbamazepine Hepatitis A IgM Ab Hep Bs Antigen Hep B Core IgM Ab Hepatitis C Antibody HIV 1&2 Ag/Ab, 4th Gen 12/22/16 08:20 WBC 14.9 H D RBC 5.34 Hgb 14.2 Hct 42.7 MCV 80.0 MCH 26.6 MCHC 33.3 RDW 14.8 H Plt Count 211 MPV 9.7 Gran % 85.6 H Lymph % (Auto) 8.0 L [place] % (Auto) 6.2 H Eos % (Auto) 0.1 L Baso % (Auto) 0.1 Gran # 12.71 H Lymph # 1.2 [place] # 0.9 H Eos # 0.0 Baso # 0.01 pCO2 pO2 HCO3 ABG pH ABG Total CO2 ABG O2 Saturation ABG O2 Content ABG Base Excess ABG Hemoglobin ABG Carboxyhemoglobin POC ABG HHb (Measured) ABG Methemoglobin ABG O2 Capacity ABG Potassium Hgb O2 Saturation Sodium Chloride Glucose Lactate FiO2 Tidal Volume PEEP Potassium Carbon Dioxide Anion Gap BUN Creatinine Est GFR ( Amer) Est GFR (Non-Af Amer) Random Glucose Calcium Phosphorus Magnesium Total Bilirubin AST ALT Alkaline Phosphatase Total Protein Albumin Globulin Albumin/Globulin Ratio Arterial Blood Potassium Phenytoin Carbamazepine Hepatitis A IgM Ab Hep Bs Antigen Hep B Core IgM Ab Hepatitis C Antibody HIV 1&2 Ag/Ab, 4th Gen Fingerstick Blood Sugar Results: 92 Review of Systems - Review of Systems Systems not reviewed;Unavailable: Altered Mental Status Critical Care Progress Note - Ventilator Checklist Daily Assessment of Readiness to Wean: Yes Daily Spontaneous Breathing Trial: Yes PUD Prophalyxis: Yes DVT Prophylaxis: Yes Oral Care with Chlorhexidine Gluconate {CHG}: Yes - Nutrition Nutrition: Nutrition Category Date Time Status NPO Diet [DIET] Diets 12/21/16 Dinner Ordered Assessment/Plan - Assessment and Plan (Free Text) Assessment: 26 y/o M with seizure d/o intubated and sedated . On Propofol, Nimbex and on Keppra and Carbamazapine . BIS monitoring at bedside. The patient currently is being taken off paralysis but kept on sedation for burst activation. EEG monitoring is to be done today to check for any seizure like activity . Plan to try to wean sedation and continue on a P.S trial to plan for possible extubation. Unclear the cause of seizures, withdrawl vs O.D Drug levels pending. Intubated for airway protection and concern for SE. Hypoxemia resolved, ABg improved, o2 requirements improved. Keep pa02> 60 . cc time 65 min
--- NOTE | 2016-12-22 17:26 | CARD ---
APPROVED REPORT EKG Measurement Heart [id number] <Conclusion> Normal sinus rhythm with sinus arrhythmia Normal ECG
--- NOTE | 2016-12-22 17:35 | CARD ---
APPROVED REPORT EXAM: Two-dimensional and M-mode echocardiogram with Doppler and color Doppler. 2D DIMENSIONS Left Atrium (2D)4.3 (1.6-4.0cm)IVSd1.0 (0.7-1.1cm) LVDd5.1 (3.9-5.9cm)PWd1.2 (0.7-1.1cm) LVDs3.7 (2.5-4.0cm)FS (%) 27.5 % LVEF (%)53.1 (>50%) M-Mode DIMENSIONS Aortic Root3.10 (2.2-3.7cm)Aortic Cusp Exc.1.90 (1.5-2.0cm) Aortic Valve AoV Peak Rdvmbsln445.0cm/Janelle Peak GR.6mmHg Mitral Valve MV E Wgxtghcq95.9cm/sMV A Xujbyspw81.8cm/sE/A ratio1.3 TDI Lateral E' Peak V10.40cm/sMedial E' Peak V6.34cm/sE/Lateral E'6.5 E/Medial E'10.7 Pulmonary Valve PV Peak Xbxjjfuv386.0cm/sPV Peak Grad.4mmHg Tricuspid Valve TR Peak Mkbtxbvx442wy/sRAP [id number] Peak Gr.13mmHg [id number] LEFT VENTRICLE The left ventricle is normal size. There is normal left ventricular wall thickness. The left ventricular function is normal.EF-55-60% There is normal LV segmental wall motion. The left ventricular diastolic function is normal. No left ventricle thrombus noted on this study. There is no left ventricular aneurysm. There is no mass noted in the left ventricle. RIGHT VENTRICLE The right ventricle is normal size. There is normal right ventricular wall thickness. The right ventricular systolic function is normal. ATRIA The left atrium is borderline dilated. The right atrium size is normal. The interatrial septum is intact with no evidence for an atrial septal defect. AORTIC VALVE The aortic valve is normal in structure. Trivial AR There is no aortic valvular stenosis. There is no aortic valvular vegetation. MITRAL VALVE The mitral valve is thickened but opens well. There is no mitral valve regurgitation noted. There is no mitral valve stenosis. There is no evidence of mitral valve prolapse. TRICUSPID VALVE The tricuspid valve is normal in structure. There is no tricuspid valve regurgitation noted.RVSP_ There is no tricuspid valve stenosis. There is no tricuspid valve prolapse or vegetation. PULMONIC VALVE The pulmonary valve is normal in structure. Trivial PI There is no pulmonic valvular stenosis. GREAT VESSELS The aortic root is normal in size. The ascending aorta is normal in size. The pulmonary artery is normal. PERICARDIAL EFFUSION There is no pleural effusion. There is no pericardial effusion. <Conclusion> The left ventricle is normal size. There is normal left ventricular wall thickness. The left ventricular function is normal.EF-55-60% Trivial AR Normal Mitral and tricuspid Valve RVSP-23 mmof Hg. No vegetation or thrombus noted.
[2016-12-23] MEDS: Piperacillin/Tazobact 3.375 gm 100 ML IVPB SCH ×2 (00:32→05:00)
[2016-12-23] MEDS: Propofol 10 mg/ml 1,000 MG/100 ML VIAL IV PRN ×3 (02:00→06:21)
[2016-12-23] MEDS: Fosphenytoin 100 MG in Dextrose 5% In Water 50 ML IV SCH (05:10)
[2016-12-23 05:43] LABS: ARTERIAL BLOOD GAS HCO3 26.6 mmol/L (21-28); ARTERIAL BLOOD GAS O2 CAPACITY 19.1 mL/dl (16-24); ARTERIAL BLOOD GAS O2 CONTENT 18.9 ML/dl (15-23); ARTERIAL BLOOD GAS PH 7.42 (7.35-7.45); ARTERIAL BLOOD HGB O2 SAT 95.7 % (95.0-98.0); CARBOXYHEMOGLOBIN 1.8 % (0.5-1.5); HHB 1.3 % (0-5); METHEMOGLOBIN 1.2 % (0.0-3.0)
[2016-12-23 05:47] LABS: BASO # 0.01 K/mm3 (0.0-2.0); BASO % 0.1 % (0.0-3.0); EOS # 0.2 (0.0-0.7); EOS % 1.7 % (1.5-5.0); GRAN # 7.01 (1.4-6.5); GRAN % 75.7 % (50.0-68.0); HEMATOCRIT 41.4 % (42.0-52.0); LYMPH # 1.3 (1.2-3.4); LYMPH % 14.2 % (22.0-35.0); MEAN CELL VOLUME 80.5 fl (80.0-105.0); MEAN CORPUSCULAR HEMOGLOBIN 26.5 pg (25.0-35.0); MEAN CORPUSCULAR HGB CONC 32.9 g/dl (31.0-37.0); MEAN PLATELET VOLUME 9.4 fl (7.0-11.0); MONO # 0.8 (0.1-0.6); MONO % 8.3 % (1.0-6.0); RED CELL DISTRIBUTION WIDTH 14.8 % (11.5-14.5); WHITE BLOOD COUNT 9.3 10^3/ul (4.5-11.0)
[2016-12-23] MEDS: Pantoprazole 40 mg Susp UD PO SCH (06:00)
[2016-12-23] MEDS: Vancomycin 1gm in NS 250ml 1 GM/250 ML BAG IVPB SCH (06:00)
[2016-12-23 06:12] LABS: ALB/GLOB RATIO 1.1 (1.1-1.8); ALKALINE PHOSPHATASE 86 U/L (38-126); ALT/SGPT 89 U/L (7-56); AST/SGOT 43 U/L (17-59); BILIRUBIN,TOTAL 0.8 mg/dL (0.2-1.3); BLOOD UREA NITROGEN 12 mg/dL (7-21); CALCIUM 9.5 mg/dL (8.4-10.5); CARBON DIOXIDE 29 mmol/L (21-33); CHLORIDE 103 mmol/L (95-110); GFR AFRICAN-AMERICAN > 60; GLUCOSE,RANDOM 86 mg/dL (70-110); MAGNESIUM 1.9 mg/dL (1.7-2.2); PHOSPHOROUS 3.4 mg/dL (2.5-4.5); POTASSIUM 3.9 mmol/L (3.6-5.0); SODIUM 139 mmol/L (132-148); TOTAL PROTEIN 7.2 g/dL (5.8-8.3)
--- NOTE | 2016-12-23 07:55 | CP.PCM.PN ---
<Rachelle Lu - Last Filed: 12/23/16 13:59> Subjective - Date & Time of Evaluation Date of Evaluation: 12/23/16 Time of Evaluation: 07:30 - Subjective Subjective: Progress note for Hospitalist service- Dr Navarro. Patient is currently extubated to nasal cannula, which he is tolerating well. Patient is verbal, and is alert and oriented. Patient c/o jaw and facial pain. Otherwise patient denies chest pain, sob, n/v/d. Patient with cough productive with whitish sputum. Patient is afebrile, with good urine output. Objective - Vital Signs/Intake and Output Vital Signs (last 24 hours): Temp Pulse Resp BP Pulse Ox 99.5 F 71 17 152/75 H 98 12/23/16 06:00 12/23/16 06:00 12/23/16 07:42 12/23/16 06:00 12/23/16 07:42 Intake and Output: 12/23/16 12/23/16 06:59 18:59 Intake Total 900 Output Total 1000 Balance -100 - Medications Medications: Current Medications Acetaminophen (Tylenol 325mg Tab) 650 mg PO Q4H PRN PRN Reason: Pain, moderate (4-7) Carbamazepine (Tegretol) 200 mg PO Q8H ALEKSEY PRN Reason: Protocol Last Admin: 12/23/16 03:26 Dose: 200 mg Clonazepam (Klonopin) 1 mg PO AMHS ALEKSEY PRN Reason: Protocol Last Admin: 12/22/16 21:56 Dose: 1 mg Heparin Sodium (Porcine) (Heparin) 5,000 units SC Q12 ALEKSEY PRN Reason: Protocol Last Admin: 12/22/16 22:30 Dose: 5,000 units Propofol (Diprivan) 1,000 mg in 100 mls @ 3.162 mls/hr IV .Q24H PRN; Protocol; 5 MCG/KG/MIN PRN Reason: TITRATE PER MD ORDER Last Admin: 12/23/16 06:21 Dose: 65 mcg/kg/min, 41.112 mls/hr Vancomycin HCl (Vancomycin 1gm) 1 gm in 250 mls @ 167 mls/hr IVPB Q12H ALEKSEY PRN Reason: Protocol Last Admin: 12/23/16 06:00 Dose: 167 mls/hr Piperacillin Sod/Tazobactam Sod (Zosyn 3.375 In Ns 100ml) 100 mls @ 200 mls/hr IVPB Q6 ALEKSEY PRN Reason: Protocol Stop: 12/29/16 00:01 Last Admin: 12/23/16 05:00 Dose: 200 mls/hr Cisatracurium Besylate 200 mg/ (Sodium Chloride) 200 mls @ 18.97 mls/hr IV .[id number] ALEKSEY; 3 MCG/KG/MIN PRN Reason: Protocol Last Titration: 12/22/16 11:00 Dose: 0 mcg/kg/min, 0 mls/hr Fosphenytoin Sodium 100 mg/ (Dextrose) 52 mls @ 200 mls/hr IV Q8 ALEKSEY Last Admin: 12/23/16 05:10 Dose: 200 mls/hr Lorazepam (Ativan) 2 mg IVP Q2H PRN; Protocol PRN Reason: Seizure activity Last Admin: 12/21/16 21:06 Dose: 2 mg Ondansetron HCl (Zofran Inj) 4 mg IVP Q6H PRN PRN Reason: Nausea/Vomiting Pantoprazole Sodium (Protonix Susp) 40 mg PO 0600 [facility] Last Admin: 12/23/16 06:00 Dose: 40 mg Phenobarbital (Phenobarbital Tab) 97.2 mg PO BID [facility] Last Admin: 12/22/16 18:00 Dose: 97.2 mg Sertraline HCl (Zoloft) 100 mg PO DAILY [facility] Last Admin: 12/22/16 10:29 Dose: 100 mg - Labs Labs: 12/23/16 05:32 12/23/16 05:32 - Constitutional Appears: No Acute Distress - Head Exam Head Exam: ATRAUMATIC, NORMAL INSPECTION, NORMOCEPHALIC - Eye Exam Eye Exam: EOMI, Normal appearance, PERRL. absent: Scleral icterus Pupil Exam: NORMAL ACCOMODATION, PERRL - ENT Exam ENT Exam: Mucous Membranes Moist - Neck Exam Neck Exam: Full ROM, Normal Inspection - Respiratory Exam Respiratory Exam: NORMAL BREATHING PATTERN. absent: Rales, Rhonchi, Wheezes, Respiratory Distress, Stridor - Cardiovascular Exam Cardiovascular Exam: REGULAR RHYTHM, RRR, +S1, +S2. absent: Bradycardia, Tachycardia, Gallop, JVD, Rubs, Murmur - GI/Abdominal Exam GI & Abdominal Exam: Soft, Normal Bowel Sounds. absent: Distended, Firm, Guarding, Tenderness, Rebound - Extremities Exam Extremities Exam: Full ROM, Normal Capillary Refill, Normal Inspection. absent : Pedal Edema - Back Exam Back Exam: NORMAL INSPECTION - Neurological Exam Neurological Exam: Alert, Awake, Oriented x3 - Psychiatric Exam Psychiatric exam: Normal Affect, Normal Mood - Skin Skin Exam: Abrasion, Dry, Intact, Normal Color, Warm Assessment and Plan - Assessment and Plan (Free Text) Assessment: Patient is a 26 y/o with pmh of seizure disorders, schizophrenia, and asthma whom was initially admitted with questionable drug overdose, had recurrent seizures while on tele floor, and was transferred to icu for possible status epilepticus. Patient was intubated for airway protection, was suspected to have pulm infiltration/edema likely 2nd to aspiration. Patient is currently extubated to nasal cannula and is saturing well on 2 litters. Plan: 1) Recurrent seizures - likely 2nd to medication overdose/ medication being held - patient is s/p intubation /extubation for possible status. - Patient had EEG pending read - Neuro following - will continue with tegretol, phenobarb, and phenytoin. - On Ativan prn 2) SIRS with pulm infiltration/edema - r/o HAP/vap, s/p extubation - Patient is on zosyn and vanco - ID is following - Patient is afebrile, no leukocytosis, procal negative. BCX and ucx with so far no growth. - Will follow with ID rec. 3) Schizophrenia/depression - will continue with klonopin, and zoloft. - Pending psych eval 4) Asthma- duoneb prn 5) Heparin sc for DVT and protonix for gi prophylaxis. Patient seen, examined and case discussed with Dr Navarro. <Ramon RODRIGUEZ,[facility] - Last Filed: 12/23/16 16:20> Objective - Vital Signs/Intake and Output Vital Signs (last 24 hours): Temp Pulse Resp BP Pulse Ox 99.5 F 97 H 17 137/53 L 98 12/23/16 06:00 12/23/16 14:19 12/23/16 07:42 12/23/16 14:19 12/23/16 07:42 Intake and Output: 12/23/16 12/23/16 06:59 18:59 Intake Total 900 Output Total 1000 Balance -100 - Medications Medications: Current Medications Acetaminophen (Tylenol 325mg Tab) 650 mg PO Q4H PRN PRN Reason: Pain, moderate (4-7) Last Admin: 12/23/16 13:46 Dose: 650 mg Albuterol/Ipratropium (Duoneb 3 Mg/0.5 Mg (3 Ml) Ud) 3 ml IH [id number] PRN PRN Reason: Shortness of Breath Benzocaine/Menthol (Cepacol Sore Throat) 1 epi MT Q2H PRN PRN Reason: Sore Throat Last Admin: 12/23/16 09:50 Dose: 1 epi Carbamazepine (Tegretol) 200 mg PO Q8H ALEKSEY PRN Reason: Protocol Last Admin: 12/23/16 13:46 Dose: 200 mg Clonazepam (Klonopin) 1 mg PO AMHS ALEKSEY PRN Reason: Protocol Last Admin: 12/23/16 09:49 Dose: 1 mg Heparin Sodium (Porcine) (Heparin) 5,000 units SC Q12 ALEKSEY PRN Reason: Protocol Last Admin: 12/23/16 09:55 Dose: 5,000 units Lorazepam (Ativan) 2 mg IVP Q2H PRN; Protocol PRN Reason: Seizure activity Last Admin: 12/21/16 21:06 Dose: 2 mg Ondansetron HCl (Zofran Inj) 4 mg IVP Q6H PRN PRN Reason: Nausea/Vomiting Pantoprazole Sodium (Protonix Susp) 40 mg PO 0600 [facility] Last Admin: 12/23/16 06:00 Dose: 40 mg Phenobarbital (Phenobarbital Tab) 97.2 mg PO BID [facility] Last Admin: 12/23/16 09:48 Dose: 97.2 mg Sertraline HCl (Zoloft) 100 mg PO DAILY [facility] Last Admin: 12/23/16 09:56 Dose: 100 mg - Labs Labs: 12/23/16 05:32 12/23/16 05:32 Attending/Attestation - Attestation I have personally seen and examined this patient.: Yes I have fully participated in the care of the patient.: Yes I have reviewed all pertinent clinical information, including history, physical exam and plan: Yes Notes (Text): 12/23/16 16:17 Patient was seen and examined with medical office professional instructor.Family is at bed side. Agreed with resident assessment and plan. 26 year old male with pmh of depression/seizure presented with tegetrol overdose and suicidal ideation. Patient , had multiple seizure , and aspiration on Thursday and was intubated, Patient hypoxia is improving.His WBC is coming down.He is on IV antibiotics as per ID .Cultures are negative.He is sedated at this time, jose rafael to wean off him off sedation and weaning trial by ICU team today. Management plan was discussed in detail with patient family . Education was provided.
[2016-12-23] MEDS ORDERED: Labetalol 5 mg/ml Inj 20ML IV ONE (08:33)
--- NOTE | 2016-12-23 09:03 | CP.CCUPN ---
<Makenzie Lezama - Last Filed: 12/23/16 10:29> CCU Subjective - Physician Review Events Since Last Encounter (Free Text): 12/23/16 09:03 No acute events overnight Subjective (Free Text): 12/23/16 09:04 Critical care progress note for Dr. Delgado Lezama, PGY-1 Pt S & E at bedside. Pt intubated and sedated overnight, arousable to verbal stimuli. Indicating that he wants ET removed. Critical Care Time Spent (in minutes): 35 CCU Objective - Vital Signs / Intake & Output Vital Signs (Last 4 hours): Vital Signs Temp Pulse Resp BP Pulse Ox 12/23/16 07:42 17 98 12/23/16 06:00 99.5 F 71 152/75 H 97 Intake and Output (Last 8hrs): Intake & Output 12/22/16 12/23/16 12/23/16 22:59 06:59 14:59 Intake Total 1100 900 Output Total 1800 1000 Balance -700 -100 Intake: IV 1000 900 Left Forearm 350 Left Wrist 900 150 Oral 100 Output: Urine 1800 1000 2-way Urethral 1000 Urine, Voided 1800 Other: Voiding Method Indwelling Catheter Indwelling Catheter # Bowel Movements 0 - Physical Exam Head: Positive for: Atraumatic, Normocephalic Pupils: Positive for: PERRL Extroacular Muscles: Positive for: EOMI Conjunctiva: Positive for: Normal Ears: Positive for: Normal Mouth: Positive for: Dry, Other (ET in place) Neck: Positive for: Other (ET in place) Respiratory/Chest: Positive for: Clear to Auscultation, Good Air Exchange. Negative for: Respiratory Distress, Accessory Muscle Use, Wheezes, Rales, Retracting, Rhonchi, Tachypneic Cardiovascular: Positive for: Regular Rate and Rhythm, Normal S1, S2. Negative for: Murmurs Abdomen: Positive for: Normal Bowel Sounds. Negative for: Tenderness, Distention, Peritoneal Signs Genitourinary Male: Positive for: Normal External Genitalia, Other (Perales in place with clear UOP, approx 125cc ) Back: Positive for: Normal Inspection Upper Extremity: Positive for: Normal Inspection. Negative for: Cyanosis, Edema Lower Extremity: Positive for: Normal Inspection. Negative for: Edema Neurological: Positive for: Other (intubated, sedated, arousable to verbal stimuli). Negative for: GCS=15 Skin: Positive for: Warm, Dry, Normal Color. Negative for: Rashes Psychiatric: Positive for: Alert, Other (intubated, sedated, arousable, following simple commands). Negative for: Homicidal Ideation - Medications Active Medications: Active Medications Generic Name Dose Route Start Last Admin Trade Name Freq PRN Reason Stop Dose Admin Acetaminophen 650 mg 12/20/16 20:35 Tylenol 325mg Tab PO Q4H PRN Pain, moderate (4-7) Benzocaine/Menthol 1 epi 12/23/16 08:31 Cepacol Sore Throat MT Q2H PRN Sore Throat Carbamazepine 200 mg 12/21/16 11:45 12/23/16 03:26 Tegretol PO 200 mg Q8H ALEKSEY Administration Protocol Clonazepam 1 mg 12/20/16 22:00 12/22/16 21:56 Klonopin PO 1 mg AMHS ALEKSEY Administration Protocol Heparin Sodium (Porcine) 5,000 units 12/22/16 10:00 12/22/16 22:30 Heparin SC 5,000 units Q12 ALEKSEY Administration Protocol Propofol 1,000 mg in 100 mls @ 3.162 mls/hr 12/21/16 17:52 12/23/16 06:21 Diprivan IV 65 mcg/kg/min .Q24H PRN 41.112 mls/hr TITRATE PER MD ORDER Administration Protocol 5 MCG/KG/MIN Vancomycin HCl 1 gm in 250 mls @ 167 mls/hr 12/21/16 18:15 12/23/16 06:00 Vancomycin 1gm IVPB 167 mls/hr Q12H ALEKSEY Administration Protocol Piperacillin Sod/Tazobactam Sod 100 mls @ 200 mls/hr 12/22/16 00:00 12/23/16 05:00 Zosyn 3.375 In Ns 100ml IVPB 12/29/16 00:01 200 mls/hr Q6 ALEKSEY Administration Protocol Fosphenytoin Sodium 100 mg/ 52 mls @ 200 mls/hr 12/22/16 14:00 12/23/16 05:10 Dextrose IV 200 mls/hr Q8 ALEKSEY Administration Lorazepam 2 mg 12/20/16 20:15 12/21/16 21:06 Ativan IVP 2 mg Q2H PRN Administration Seizure activity Protocol Ondansetron HCl 4 mg 12/18/16 21:15 Zofran Inj IVP Q6H PRN Nausea/Vomiting Pantoprazole Sodium 40 mg 12/23/16 06:00 12/23/16 06:00 Protonix Susp PO 40 mg 0600 ALEKSEY Administration Phenobarbital 97.2 mg 12/21/16 11:45 12/22/16 18:00 Phenobarbital Tab PO 97.2 mg BID ALEKSEY Administration Sertraline HCl 100 mg 12/21/16 10:00 12/22/16 10:29 Zoloft PO 100 mg DAILY ALEKSEY Administration - Patient Studies Lab Studies: Microbiology Studies 12/21/16 18:15 Blood Culture - Preliminary Blood-Venous NO GROWTH AFTER 24 HOURS 12/21/16 12:00 MRSA Culture (Admit) - Final Nose MRSA NOT DETECTED Lab Studies 12/23/16 12/23/16 12/23/16 Range/Units 05:32 05:32 05:30 WBC 9.3 D (4.5-11.0) 10^3/ul RBC 5.14 (3.5-6.1) 10^6/uL Hgb 13.6 L (14.0-18.0) g/dL Hct 41.4 L (42.0-52.0) % MCV 80.5 (80.0-105.0) fl MCH 26.5 (25.0-35.0) pg MCHC 32.9 (31.0-37.0) g/dl RDW 14.8 H (11.5-14.5) % Plt Count 180 (120.0-450.0) 10^3/uL MPV 9.4 (7.0-11.0) fl Gran % 75.7 H (50.0-68.0) % Lymph % (Auto) 14.2 L (22.0-35.0) % Bracken % (Auto) 8.3 H (1.0-6.0) % Eos % (Auto) 1.7 (1.5-5.0) % Baso % (Auto) 0.1 (0.0-3.0) % Gran # 7.01 H (1.4-6.5) Lymph # 1.3 (1.2-3.4) Bracken # 0.8 H (0.1-0.6) Eos # 0.2 (0.0-0.7) Baso # 0.01 (0.0-2.0) K/mm3 pCO2 41 (35-45) mm/Hg pO2 96.0 (80-100) mm/Hg HCO3 26.6 (21-28) mmol/L ABG pH 7.42 (7.35-7.45) ABG Total CO2 27.9 (22-28) mmol.L ABG O2 Saturation 98.7 H (95-98) % ABG O2 Content 18.9 (15-23) ML/dl ABG Base Excess 1.9 (-2.0-3.0) mmol/L ABG Hemoglobin 14.0 (11.7-17.4) g/dL ABG Carboxyhemoglobin 1.8 H (0.5-1.5) % POC ABG HHb (Measured) 1.3 (0-5) % ABG Methemoglobin 1.2 (0.0-3.0) % ABG O2 Capacity 19.1 (16-24) mL/dl Hgb O2 Saturation 95.7 (95.0-98.0) % FiO2 40.0 % Sodium 139 (132-148) mmol/L Potassium 3.9 (3.6-5.0) mmol/L Chloride 103 (95-110) mmol/L Carbon Dioxide 29 (21-33) mmol/L Anion Gap 11 (10-20) BUN 12 (7-21) mg/dL Creatinine 0.9 (0.5-1.4) mg/dL Est GFR ( Amer) > 60 Est GFR (Non-Af Amer) > 60 Random Glucose 86 (70-110) mg/dL Calcium 9.5 (8.4-10.5) mg/dL Phosphorus 3.4 (2.5-4.5) mg/dL Magnesium 1.9 (1.7-2.2) mg/dL Total Bilirubin 0.8 (0.2-1.3) mg/dL AST 43 (17-59) U/L ALT 89 H (7-56) U/L Alkaline Phosphatase 86 (38-126) U/L Total Protein 7.2 (5.8-8.3) g/dL Albumin 3.8 (3.0-4.8) g/dL Globulin 3.4 gm/dL Albumin/Globulin Ratio 1.1 (1.1-1.8) Procalcitonin (0.19-0.49) NG/ML Phenytoin (10-20) ug/mL Phenobarbital (15.0-40.0) mg/L HIV 1&2 Ag/Ab, 4th Gen (Nonreactive) 12/22/16 12/22/16 12/22/16 Range/Units 06:30 05:30 05:10 WBC (4.5-11.0) 10^3/ul RBC (3.5-6.1) 10^6/uL Hgb (14.0-18.0) g/dL Hct (42.0-52.0) % MCV (80.0-105.0) fl MCH (25.0-35.0) pg MCHC (31.0-37.0) g/dl RDW (11.5-14.5) % Plt Count (120.0-450.0) 10^3/uL MPV (7.0-11.0) fl Gran % (50.0-68.0) % Lymph % (Auto) (22.0-35.0) % Bracken % (Auto) (1.0-6.0) % Eos % (Auto) (1.5-5.0) % Baso % (Auto) (0.0-3.0) % Gran # (1.4-6.5) Lymph # (1.2-3.4) Bracken # (0.1-0.6) Eos # (0.0-0.7) Baso # (0.0-2.0) K/mm3 pCO2 (35-45) mm/Hg pO2 (80-100) mm/Hg HCO3 (21-28) mmol/L ABG pH (7.35-7.45) ABG Total CO2 (22-28) mmol.L ABG O2 Saturation (95-98) % ABG O2 Content (15-23) ML/dl ABG Base Excess (-2.0-3.0) mmol/L ABG Hemoglobin (11.7-17.4) g/dL ABG Carboxyhemoglobin (0.5-1.5) % POC ABG HHb (Measured) (0-5) % ABG Methemoglobin (0.0-3.0) % ABG O2 Capacity (16-24) mL/dl Hgb O2 Saturation (95.0-98.0) % FiO2 % Sodium (132-148) mmol/L Potassium (3.6-5.0) mmol/L Chloride (95-110) mmol/L Carbon Dioxide (21-33) mmol/L Anion Gap (10-20) BUN (7-21) mg/dL Creatinine (0.5-1.4) mg/dL Est GFR ( Amer) Est GFR (Non-Af Amer) Random Glucose (70-110) mg/dL Calcium (8.4-10.5) mg/dL Phosphorus (2.5-4.5) mg/dL Magnesium (1.7-2.2) mg/dL Total Bilirubin (0.2-1.3) mg/dL AST (17-59) U/L ALT (7-56) U/L Alkaline Phosphatase (38-126) U/L Total Protein (5.8-8.3) g/dL Albumin (3.0-4.8) g/dL Globulin gm/dL Albumin/Globulin Ratio (1.1-1.8) Procalcitonin 0.29 (0.19-0.49) NG/ML Phenytoin 3 L (10-20) ug/mL Phenobarbital 9.2 L (15.0-40.0) mg/L HIV 1&2 Ag/Ab, 4th Gen (Nonreactive) 12/21/16 12/20/16 Range/Units 18:15 09:00 WBC (4.5-11.0) 10^3/ul RBC (3.5-6.1) 10^6/uL Hgb (14.0-18.0) g/dL Hct (42.0-52.0) % MCV (80.0-105.0) fl MCH (25.0-35.0) pg MCHC (31.0-37.0) g/dl RDW (11.5-14.5) % Plt Count (120.0-450.0) 10^3/uL MPV (7.0-11.0) fl Gran % (50.0-68.0) % Lymph % (Auto) (22.0-35.0) % Bracken % (Auto) (1.0-6.0) % Eos % (Auto) (1.5-5.0) % Baso % (Auto) (0.0-3.0) % Gran # (1.4-6.5) Lymph # (1.2-3.4) Bracken # (0.1-0.6) Eos # (0.0-0.7) Baso # (0.0-2.0) K/mm3 pCO2 (35-45) mm/Hg pO2 (80-100) mm/Hg HCO3 (21-28) mmol/L ABG pH (7.35-7.45) ABG Total CO2 (22-28) mmol.L ABG O2 Saturation (95-98) % ABG O2 Content (15-23) ML/dl ABG Base Excess (-2.0-3.0) mmol/L ABG Hemoglobin (11.7-17.4) g/dL ABG Carboxyhemoglobin (0.5-1.5) % POC ABG HHb (Measured) (0-5) % ABG Methemoglobin (0.0-3.0) % ABG O2 Capacity (16-24) mL/dl Hgb O2 Saturation (95.0-98.0) % FiO2 % Sodium (132-148) mmol/L Potassium (3.6-5.0) mmol/L Chloride (95-110) mmol/L Carbon Dioxide (21-33) mmol/L Anion Gap (10-20) BUN (7-21) mg/dL Creatinine (0.5-1.4) mg/dL Est GFR ( Amer) Est GFR (Non-Af Amer) Random Glucose (70-110) mg/dL Calcium (8.4-10.5) mg/dL Phosphorus (2.5-4.5) mg/dL Magnesium (1.7-2.2) mg/dL Total Bilirubin (0.2-1.3) mg/dL AST (17-59) U/L ALT (7-56) U/L Alkaline Phosphatase (38-126) U/L Total Protein (5.8-8.3) g/dL Albumin (3.0-4.8) g/dL Globulin gm/dL Albumin/Globulin Ratio (1.1-1.8) Procalcitonin (0.19-0.49) NG/ML Phenytoin (10-20) ug/mL Phenobarbital 14.1 L (15.0-40.0) mg/L HIV 1&2 Ag/Ab, 4th Gen Nonreactive (Nonreactive) Laboratory Results - last 24 hr 12/20/16 12/21/16 12/22/16 09:00 18:15 05:10 WBC RBC Hgb Hct MCV MCH MCHC RDW Plt Count MPV Gran % Lymph % (Auto) Bracken % (Auto) Eos % (Auto) Baso % (Auto) Gran # Lymph # Bracken # Eos # Baso # pCO2 pO2 HCO3 ABG pH ABG Total CO2 ABG O2 Saturation ABG O2 Content ABG Base Excess ABG Hemoglobin ABG Carboxyhemoglobin POC ABG HHb (Measured) ABG Methemoglobin ABG O2 Capacity Hgb O2 Saturation FiO2 Sodium Potassium Chloride Carbon Dioxide Anion Gap BUN Creatinine Est GFR ( Amer) Est GFR (Non-Af Amer) Random Glucose Calcium Phosphorus Magnesium Total Bilirubin AST ALT Alkaline Phosphatase Total Protein Albumin Globulin Albumin/Globulin Ratio Procalcitonin Phenytoin Phenobarbital 14.1 L 9.2 L HIV 1&2 Ag/Ab, 4th Gen Nonreactive 12/22/16 12/22/16 12/23/16 05:30 06:30 05:30 WBC RBC Hgb Hct MCV MCH MCHC RDW Plt Count MPV Gran % Lymph % (Auto) Bracken % (Auto) Eos % (Auto) Baso % (Auto) Gran # Lymph # Bracken # Eos # Baso # pCO2 41 pO2 96.0 HCO3 26.6 ABG pH 7.42 ABG Total CO2 27.9 ABG O2 Saturation 98.7 H ABG O2 Content 18.9 ABG Base Excess 1.9 ABG Hemoglobin 14.0 ABG Carboxyhemoglobin 1.8 H POC ABG HHb (Measured) 1.3 ABG Methemoglobin 1.2 ABG O2 Capacity 19.1 Hgb O2 Saturation 95.7 FiO2 40.0 Sodium Potassium Chloride Carbon Dioxide Anion Gap BUN Creatinine Est GFR ( Amer) Est GFR (Non-Af Amer) Random Glucose Calcium Phosphorus Magnesium Total Bilirubin AST ALT Alkaline Phosphatase Total Protein Albumin Globulin Albumin/Globulin Ratio Procalcitonin 0.29 Phenytoin 3 L Phenobarbital HIV 1&2 Ag/Ab, 4th Gen 12/23/16 12/23/16 05:32 05:32 WBC 9.3 D RBC 5.14 Hgb 13.6 L Hct 41.4 L MCV 80.5 MCH 26.5 MCHC 32.9 RDW 14.8 H Plt Count 180 MPV 9.4 Gran % 75.7 H Lymph % (Auto) 14.2 L Bracken % (Auto) 8.3 H Eos % (Auto) 1.7 Baso % (Auto) 0.1 Gran # 7.01 H Lymph # 1.3 Bracken # 0.8 H Eos # 0.2 Baso # 0.01 pCO2 pO2 HCO3 ABG pH ABG Total CO2 ABG O2 Saturation ABG O2 Content ABG Base Excess ABG Hemoglobin ABG Carboxyhemoglobin POC ABG HHb (Measured) ABG Methemoglobin ABG O2 Capacity Hgb O2 Saturation FiO2 Sodium 139 Potassium 3.9 Chloride 103 Carbon Dioxide 29 Anion Gap 11 BUN 12 Creatinine 0.9 Est GFR ( Amer) > 60 Est GFR (Non-Af Amer) > 60 Random Glucose 86 Calcium 9.5 Phosphorus 3.4 Magnesium 1.9 Total Bilirubin 0.8 AST 43 ALT 89 H Alkaline Phosphatase 86 Total Protein 7.2 Albumin 3.8 Globulin 3.4 Albumin/Globulin Ratio 1.1 Procalcitonin Phenytoin Phenobarbital HIV 1&2 Ag/Ab, 4th Gen EKG/Cardiology Studies: Cardiology / EKG Studies 12/23/16 09:01 EKG [ELECTROCARDIOGRAM] Stat Comment: Reason For Exam: cardiac evaluation Fingerstick Blood Sugar Results: 92 Review of Systems - Review of Systems Systems not reviewed;Unavailable: Intubated Critical Care Progress Note - Ventilator Checklist Head of Bed 30 Degrees: Yes Daily Sedation Vacation: Yes Daily Assessment of Readiness to Wean: Yes Daily Spontaneous Breathing Trial: Yes PUD Prophalyxis: Yes DVT Prophylaxis: Yes Oral Care with Chlorhexidine Gluconate {CHG}: Yes - Vent Settings MODE:: PRVC TIDAL VOLUME:: 350 RESP RATE:: 14 FIO2:: 40 PEEP:: 5 - Extremities/Vascular Does the Patient have a Perales Catheter?: Yes Does the Patient need a Perales Catheter?: Yes (Will plan to remove after extubation if successful) Catheter Insertion Criteria: Incontinence as per policy - Restraints Justification for Restraints: High risk for self extubation - Prophylaxis GI Prophylaxis GI: PPI - Prophylaxis DVT Prophylaxis DVT: SCDs - Nutrition Nutrition: Nutrition Category Date Time Status NPO Diet [DIET] Diets 12/21/16 Dinner Ordered Assessment/Plan - Assessment and Plan (Free Text) Assessment: 26M w/recurrent seizure activity, intubated and sedated for airway protection- doing well overnight Plan: Neuro Intubated/sedated 2/2 recurrent seizures/need for airway protection arousable to verbal stimuli No seizures overnight, Follows simple commands Carbamazepine Dilantin Ativan PRN\ Plan for extubation Neuro following CVS HTN Labetalol 10mg x 1 Monitor Pulm On mechanical vent Wean protocol Plan for extubation CXR - no acute findings, improved from previous w/infiltrates Cepacol post extubation GI NPO Zofran Hepatitis panel neg Swallow eval post extubation Perales in place may remove Perales if extubate/stable Nephro Electrolytes WNL I/O MOnitor ID Afebrile No leukocytosis HIV neg CXR- NAD On vanc, zosyn- will d/c ID following Endo BS WNL MOnitor Target euglycemia MSK Tylenol PRN pain Monitor for skin breakdown Psych SI Klonopin Phenobarbital Zoloft Psych following GI/DVT ppx SCDs Heparin Protonix Dispo Extubate Monitor for seizures DW attending Lise, PGY-1 - Date & Time Date: 12/23/16 Time: 07:00 <Mitzi RODRIGUEZ,Vanessa H - Last Filed: 12/23/16 10:48> CCU Objective - Vital Signs / Intake & Output Vital Signs (Last 4 hours): Vital Signs Resp Pulse Ox 12/23/16 07:42 17 98 Intake and Output (Last 8hrs): Intake & Output 12/22/16 12/23/16 12/23/16 22:59 06:59 14:59 Intake Total 1100 900 Output Total 1800 1000 Balance -700 -100 Intake: IV 1000 900 Left Forearm 350 Left Wrist 900 150 Oral 100 Output: Urine 1800 1000 2-way Urethral 1000 Urine, Voided 1800 Other: Voiding Method Indwelling Catheter Indwelling Catheter # Bowel Movements 0 - Medications Active Medications: Active Medications Generic Name Dose Route Start Last Admin Trade Name Freq PRN Reason Stop Dose Admin Acetaminophen 650 mg 12/20/16 20:35 Tylenol 325mg Tab PO Q4H PRN Pain, moderate (4-7) Benzocaine/Menthol 1 epi 12/23/16 08:31 12/23/16 09:50 Cepacol Sore Throat MT 1 epi Q2H PRN Administration Sore Throat Carbamazepine 200 mg 12/21/16 11:45 12/23/16 03:26 Tegretol PO 200 mg Q8H ALEKSEY Administration Protocol Clonazepam 1 mg 12/20/16 22:00 12/23/16 09:49 Klonopin PO 1 mg AMHS ALEKSEY Administration Protocol Heparin Sodium (Porcine) 5,000 units 12/22/16 10:00 12/23/16 09:55 Heparin SC 5,000 units Q12 ALEKSEY Administration Protocol Lorazepam 2 mg 12/20/16 20:15 12/21/16 21:06 Ativan IVP 2 mg Q2H PRN Administration Seizure activity Protocol Ondansetron HCl 4 mg 12/18/16 21:15 Zofran Inj IVP Q6H PRN Nausea/Vomiting Pantoprazole Sodium 40 mg 12/23/16 06:00 12/23/16 06:00 Protonix Susp PO 40 mg 0600 [facility] Administration Phenobarbital 97.2 mg 12/21/16 11:45 12/23/16 09:48 Phenobarbital Tab PO 97.2 mg BID ALEKSEY Administration Phenytoin Sodium 100 mg 12/23/16 10:00 12/23/16 10:22 Dilantin PO Not Given TID [facility] Sertraline HCl 100 mg 12/21/16 10:00 12/23/16 09:56 Zoloft PO 100 mg DAILY [facility] Administration - Patient Studies Lab Studies: Microbiology Studies 12/21/16 20:00 Urine Culture - Final Urine,Clean Catch No Growth (<1,000 CFU/ML) 12/21/16 18:15 Blood Culture - Preliminary Blood-Venous NO GROWTH AFTER 24 HOURS 12/21/16 12:00 MRSA Culture (Admit) - Final Nose MRSA NOT DETECTED Lab Studies 12/23/16 12/23/16 12/23/16 Range/Units 05:32 05:32 05:30 WBC 9.3 D (4.5-11.0) 10^3/ul RBC 5.14 (3.5-6.1) 10^6/uL Hgb 13.6 L (14.0-18.0) g/dL Hct 41.4 L (42.0-52.0) % MCV 80.5 (80.0-105.0) fl MCH 26.5 (25.0-35.0) pg MCHC 32.9 (31.0-37.0) g/dl RDW 14.8 H (11.5-14.5) % Plt Count 180 (120.0-450.0) 10^3/uL MPV 9.4 (7.0-11.0) fl Gran % 75.7 H (50.0-68.0) % Lymph % (Auto) 14.2 L (22.0-35.0) % Bracken % (Auto) 8.3 H (1.0-6.0) % Eos % (Auto) 1.7 (1.5-5.0) % Baso % (Auto) 0.1 (0.0-3.0) % Gran # 7.01 H (1.4-6.5) Lymph # 1.3 (1.2-3.4) Bracken # 0.8 H (0.1-0.6) Eos # 0.2 (0.0-0.7) Baso # 0.01 (0.0-2.0) K/mm3 pCO2 41 (35-45) mm/Hg pO2 96.0 (80-100) mm/Hg HCO3 26.6 (21-28) mmol/L ABG pH 7.42 (7.35-7.45) ABG Total CO2 27.9 (22-28) mmol.L ABG O2 Saturation 98.7 H (95-98) % ABG O2 Content 18.9 (15-23) ML/dl ABG Base Excess 1.9 (-2.0-3.0) mmol/L ABG Hemoglobin 14.0 (11.7-17.4) g/dL ABG Carboxyhemoglobin 1.8 H (0.5-1.5) % POC ABG HHb (Measured) 1.3 (0-5) % ABG Methemoglobin 1.2 (0.0-3.0) % ABG O2 Capacity 19.1 (16-24) mL/dl Hgb O2 Saturation 95.7 (95.0-98.0) % FiO2 40.0 % Sodium 139 (132-148) mmol/L Potassium 3.9 (3.6-5.0) mmol/L Chloride 103 (95-110) mmol/L Carbon Dioxide 29 (21-33) mmol/L Anion Gap 11 (10-20) BUN 12 (7-21) mg/dL Creatinine 0.9 (0.5-1.4) mg/dL Est GFR ( Amer) > 60 Est GFR (Non-Af Amer) > 60 Random Glucose 86 (70-110) mg/dL Calcium 9.5 (8.4-10.5) mg/dL Phosphorus 3.4 (2.5-4.5) mg/dL Magnesium 1.9 (1.7-2.2) mg/dL Total Bilirubin 0.8 (0.2-1.3) mg/dL AST 43 (17-59) U/L ALT 89 H (7-56) U/L Alkaline Phosphatase 86 (38-126) U/L Total Protein 7.2 (5.8-8.3) g/dL Albumin 3.8 (3.0-4.8) g/dL Globulin 3.4 gm/dL Albumin/Globulin Ratio 1.1 (1.1-1.8) Procalcitonin (0.19-0.49) NG/ML Phenytoin (10-20) ug/mL Phenobarbital (15.0-40.0) mg/L HIV 1&2 Ag/Ab, 4th Gen (Nonreactive) 12/22/16 12/22/16 12/22/16 Range/Units 06:30 05:30 05:10 WBC (4.5-11.0) 10^3/ul RBC (3.5-6.1) 10^6/uL Hgb (14.0-18.0) g/dL Hct (42.0-52.0) % MCV (80.0-105.0) fl MCH (25.0-35.0) pg MCHC (31.0-37.0) g/dl RDW (11.5-14.5) % Plt Count (120.0-450.0) 10^3/uL MPV (7.0-11.0) fl Gran % (50.0-68.0) % Lymph % (Auto) (22.0-35.0) % Bracken % (Auto) (1.0-6.0) % Eos % (Auto) (1.5-5.0) % Baso % (Auto) (0.0-3.0) % Gran # (1.4-6.5) Lymph # (1.2-3.4) Bracken # (0.1-0.6) Eos # (0.0-0.7) Baso # (0.0-2.0) K/mm3 pCO2 (35-45) mm/Hg pO2 (80-100) mm/Hg HCO3 (21-28) mmol/L ABG pH (7.35-7.45) ABG Total CO2 (22-28) mmol.L ABG O2 Saturation (95-98) % ABG O2 Content (15-23) ML/dl ABG Base Excess (-2.0-3.0) mmol/L ABG Hemoglobin (11.7-17.4) g/dL ABG Carboxyhemoglobin (0.5-1.5) % POC ABG HHb (Measured) (0-5) % ABG Methemoglobin (0.0-3.0) % ABG O2 Capacity (16-24) mL/dl Hgb O2 Saturation (95.0-98.0) % FiO2 % Sodium (132-148) mmol/L Potassium (3.6-5.0) mmol/L Chloride (95-110) mmol/L Carbon Dioxide (21-33) mmol/L Anion Gap (10-20) BUN (7-21) mg/dL Creatinine (0.5-1.4) mg/dL Est GFR ( Amer) Est GFR (Non-Af Amer) Random Glucose (70-110) mg/dL Calcium (8.4-10.5) mg/dL Phosphorus (2.5-4.5) mg/dL Magnesium (1.7-2.2) mg/dL Total Bilirubin (0.2-1.3) mg/dL AST (17-59) U/L ALT (7-56) U/L Alkaline Phosphatase (38-126) U/L Total Protein (5.8-8.3) g/dL Albumin (3.0-4.8) g/dL Globulin gm/dL Albumin/Globulin Ratio (1.1-1.8) Procalcitonin 0.29 (0.19-0.49) NG/ML Phenytoin 3 L (10-20) ug/mL Phenobarbital 9.2 L (15.0-40.0) mg/L HIV 1&2 Ag/Ab, 4th Gen (Nonreactive) 12/21/16 12/20/16 Range/Units 18:15 09:00 WBC (4.5-11.0) 10^3/ul RBC (3.5-6.1) 10^6/uL Hgb (14.0-18.0) g/dL Hct (42.0-52.0) % MCV (80.0-105.0) fl MCH (25.0-35.0) pg MCHC (31.0-37.0) g/dl RDW (11.5-14.5) % Plt Count (120.0-450.0) 10^3/uL MPV (7.0-11.0) fl Gran % (50.0-68.0) % Lymph % (Auto) (22.0-35.0) % Bracken % (Auto) (1.0-6.0) % Eos % (Auto) (1.5-5.0) % Baso % (Auto) (0.0-3.0) % Gran # (1.4-6.5) Lymph # (1.2-3.4) Bracken # (0.1-0.6) Eos # (0.0-0.7) Baso # (0.0-2.0) K/mm3 pCO2 (35-45) mm/Hg pO2 (80-100) mm/Hg HCO3 (21-28) mmol/L ABG pH (7.35-7.45) ABG Total CO2 (22-28) mmol.L ABG O2 Saturation (95-98) % ABG O2 Content (15-23) ML/dl ABG Base Excess (-2.0-3.0) mmol/L ABG Hemoglobin (11.7-17.4) g/dL ABG Carboxyhemoglobin (0.5-1.5) % POC ABG HHb (Measured) (0-5) % ABG Methemoglobin (0.0-3.0) % ABG O2 Capacity (16-24) mL/dl Hgb O2 Saturation (95.0-98.0) % FiO2 % Sodium (132-148) mmol/L Potassium (3.6-5.0) mmol/L Chloride (95-110) mmol/L Carbon Dioxide (21-33) mmol/L Anion Gap (10-20) BUN (7-21) mg/dL Creatinine (0.5-1.4) mg/dL Est GFR ( Amer) Est GFR (Non-Af Amer) Random Glucose (70-110) mg/dL Calcium (8.4-10.5) mg/dL Phosphorus (2.5-4.5) mg/dL Magnesium (1.7-2.2) mg/dL Total Bilirubin (0.2-1.3) mg/dL AST (17-59) U/L ALT (7-56) U/L Alkaline Phosphatase (38-126) U/L Total Protein (5.8-8.3) g/dL Albumin (3.0-4.8) g/dL Globulin gm/dL Albumin/Globulin Ratio (1.1-1.8) Procalcitonin (0.19-0.49) NG/ML Phenytoin (10-20) ug/mL Phenobarbital 14.1 L (15.0-40.0) mg/L HIV 1&2 Ag/Ab, 4th Gen Nonreactive (Nonreactive) Laboratory Results - last 24 hr 12/20/16 12/21/16 12/22/16 09:00 18:15 05:10 WBC RBC Hgb Hct MCV MCH MCHC RDW Plt Count MPV Gran % Lymph % (Auto) Bracken % (Auto) Eos % (Auto) Baso % (Auto) Gran # Lymph # Bracken # Eos # Baso # pCO2 pO2 HCO3 ABG pH ABG Total CO2 ABG O2 Saturation ABG O2 Content ABG Base Excess ABG Hemoglobin ABG Carboxyhemoglobin POC ABG HHb (Measured) ABG Methemoglobin ABG O2 Capacity Hgb O2 Saturation FiO2 Sodium Potassium Chloride Carbon Dioxide Anion Gap BUN Creatinine Est GFR ( Amer) Est GFR (Non-Af Amer) Random Glucose Calcium Phosphorus Magnesium Total Bilirubin AST ALT Alkaline Phosphatase Total Protein Albumin Globulin Albumin/Globulin Ratio Procalcitonin Phenytoin Phenobarbital 14.1 L 9.2 L HIV 1&2 Ag/Ab, 4th Gen Nonreactive 12/22/16 12/22/16 12/23/16 05:30 06:30 05:30 WBC RBC Hgb Hct MCV MCH MCHC RDW Plt Count MPV Gran % Lymph % (Auto) Bracken % (Auto) Eos % (Auto) Baso % (Auto) Gran # Lymph # Bracken # Eos # Baso # pCO2 41 pO2 96.0 HCO3 26.6 ABG pH 7.42 ABG Total CO2 27.9 ABG O2 Saturation 98.7 H ABG O2 Content 18.9 ABG Base Excess 1.9 ABG Hemoglobin 14.0 ABG Carboxyhemoglobin 1.8 H POC ABG HHb (Measured) 1.3 ABG Methemoglobin 1.2 ABG O2 Capacity 19.1 Hgb O2 Saturation 95.7 FiO2 40.0 Sodium Potassium Chloride Carbon Dioxide Anion Gap BUN Creatinine Est GFR ( Amer) Est GFR (Non-Af Amer) Random Glucose Calcium Phosphorus Magnesium Total Bilirubin AST ALT Alkaline Phosphatase Total Protein Albumin Globulin Albumin/Globulin Ratio Procalcitonin 0.29 Phenytoin 3 L Phenobarbital HIV 1&2 Ag/Ab, 4th Gen 12/23/16 12/23/16 05:32 05:32 WBC 9.3 D RBC 5.14 Hgb 13.6 L Hct 41.4 L MCV 80.5 MCH 26.5 MCHC 32.9 RDW 14.8 H Plt Count 180 MPV 9.4 Gran % 75.7 H Lymph % (Auto) 14.2 L Bracken % (Auto) 8.3 H Eos % (Auto) 1.7 Baso % (Auto) 0.1 Gran # 7.01 H Lymph # 1.3 Bracken # 0.8 H Eos # 0.2 Baso # 0.01 pCO2 pO2 HCO3 ABG pH ABG Total CO2 ABG O2 Saturation ABG O2 Content ABG Base Excess ABG Hemoglobin ABG Carboxyhemoglobin POC ABG HHb (Measured) ABG Methemoglobin ABG O2 Capacity Hgb O2 Saturation FiO2 Sodium 139 Potassium 3.9 Chloride 103 Carbon Dioxide 29 Anion Gap 11 BUN 12 Creatinine 0.9 Est GFR ( Amer) > 60 Est GFR (Non-Af Amer) > 60 Random Glucose 86 Calcium 9.5 Phosphorus 3.4 Magnesium 1.9 Total Bilirubin 0.8 AST 43 ALT 89 H Alkaline Phosphatase 86 Total Protein 7.2 Albumin 3.8 Globulin 3.4 Albumin/Globulin Ratio 1.1 Procalcitonin Phenytoin Phenobarbital HIV 1&2 Ag/Ab, 4th Gen EKG/Cardiology Studies: Cardiology / EKG Studies 12/23/16 09:01 EKG [ELECTROCARDIOGRAM] Stat Comment: Reason For Exam: cardiac evaluation Critical Care Progress Note - Nutrition Nutrition: Nutrition Category Date Time Status NPO Diet [DIET] Diets 12/21/16 Dinner Ordered Attending/Attestation - Attestation I have personally seen and examined this patient.: Yes I have fully participated in the care of the patient.: Yes I have reviewed all pertinent clinical information: Yes Notes (Text): 12/23/16 10:46 26 y/o M w/ intractable seizures. Intubated x 2 days for airway control. Extubated this morning. Following commands. No signs of breakthrough seizures. Neurology following as well. ON Carbamazapine, dilantin and Keppra. .Levels to be followed. Hypoxia, aspiration resolved. dvt P ppi cc time 45 min
--- NOTE | 2016-12-23 09:32 | RAD ---
HISTORY: intubation, PNA COMPARISON: 12/22/2016 FINDINGS: LUNGS: No active pulmonary disease. PLEURA: No significant pleural effusion identified, no pneumothorax apparent. CARDIOVASCULAR: Normal. OSSEOUS STRUCTURES: No significant abnormalities. VISUALIZED UPPER ABDOMEN: Normal. OTHER FINDINGS: Endotracheal and nasogastric tubes in satisfactory position IMPRESSION: No active disease.
[2016-12-23] MEDS: Benzocaine/Menthol (Cepacol) Lozenge MT PRN (09:50)
--- NOTE | 2016-12-23 09:55 | EEG ---
ELECTROENCEPHALOGRAM REPORT INTRODUCTION: This is a digitally recorded EEG monitoring using standard EEG montages. BACKGROUND RHYTHM: The EEG shows a background activity of 11 to 12 hertz alpha activity in parieto-occipital region. The EEG activity is bilaterally symmetrical and synchronous. There is no EEG reactivity seen. ABNORMAL POTENTIALS: No spike, sharp waves or focal slowing was seen. PHOTIC STIMULATION AND HYPERVENTILATION: Photic stimulation did not reveal any abnormality. Hyperventilation was not performed. IMPRESSION: Normal electroencephalogram. No epileptiform activity is seen in this electroencephalogram recording. Sony Cartagena MD
--- NOTE | 2016-12-23 10:56 | PN ---
DATE: 12/23/2016 SUBJECTIVE: The patient is in bed, in no acute distress, nontoxic. PHYSICAL EXAMINATION: VITAL SIGNS: Temperature is 99, blood pressure is 150/70, respiratory rate of 18, and heart rate of 98. HEENT: Unremarkable. NECK: Supple. LUNGS: Decreased breath sounds. HEART: Normal S1 and S2. ABDOMEN: Soft and nontender. LABORATORY DATA: Reveals a white count of 9.3, hemoglobin of 13, and platelets of 180. BUN of 12 and creatinine of 0.9. Urinalysis is noted and serology reveals the hepatitis profile as negative. HIV is negative. Review of orders reveals the patient to be on IV vancomycin and Zosyn. ASSESSMENT AND PLAN: This is a 26-year-old male with obesity with a body mass index of 35 with asthma, schizophrenia, seizures, depression, admitted with diagnoses of overdose of prescription medications with systemic inflammatory response syndrome, pulmonary edema, must rule out severe sepsis with ventilatory-dependant respiratory failure due to healthcare-associated pneumonia in a patient with asthma, schizophrenia, seizures, on vancomycin and Zosyn. Thus far, blood cultures have reported no growth. Nasal methicillin-resistant Staphylococcus aureus is negative and urine cultures are negative. The patient does have a negative procalcitonin of 0.29 and chest x-ray from yesterday is complete resolution of left-sided pulmonary infiltrate, resolving pulmonary edema. If all cultures remain negative in the next 24 to 48 hours, we will discontinue all antibiotics. Tima Larios MD
--- NOTE | 2016-12-23 12:55 | CARD ---
APPROVED REPORT EKG Measurement Heart [id number] <Conclusion> Normal sinus rhythm Early repolarization Normal ECG
--- NOTE | 2016-12-23 13:58 | PN ---
SUBJECTIVE: The patient is lying on the bed, in no acute distress. He is status post extubation. PHYSICAL EXAMINATION VITAL SIGNS: His blood pressure is 152/75, heart rate 71 per minute, breathing at the rate of 16 per minute, temperature is 99.5 degree Fahrenheit. HEENT: Head is normocephalic and atraumatic. NECK: Supple. There are no carotid bruits. LUNGS: Clear. CARDIOVASCULAR: S1 and S2 audible. No murmurs. ABDOMEN: Soft and nontender with bowel sounds present. NEUROLOGY: Mental Status: The patient is awake, alert, oriented to time, place, and person. Speech is fluent. Naming and repetition are normal. Memory and cognition are intact. Cranial Nerve Examination: Pupils are 4 mm bilaterally, reactive to light. Visual hemphill are full. Extraocular movements are intact. There is no facial asymmetry. Palate is upgoing bilaterally and tongue is midline. Motor Examination: Tone is normal. Power is 5/5 bilaterally in all extremities. Reflexes are +1 and symmetrical. Plantars downgoing bilaterally. LABORATORY DATA: Labs reviewed. Phenytoin level is 3, phenobarbital level is 9.2 and carbamazepine level was less than 3. These were all done yesterday. IMPRESSION: Seizure disorder with uncontrolled seizures versus possible nonepileptic seizures. RECOMMENDATIONS: 1. At this time, the patient to be continued on phenytoin. We will discontinue fosphenytoin and put him on Dilantin 100 mg 3 times a day. 2. The patient to be continued on phenobarbital and carbamazepine. 3. The patient will require video EEG monitoring off antiepileptic medication to see if the patient's seizures are real or nonepileptic in nature. This is to be done in either [facility] or [facility]. This is to be done once the patient is discharged from the hospital as an outpatient. 4. Please continue other treatment and supportive care. Thank you for the opportunity to participate in the care of this patient. Sony Cartagena MD
[2016-12-23] MEDS ORDERED: Albuterol-Ipratrop 3 mg / 0.5 (3 ml) UD IH PRN (14:17)
[2016-12-23 19:53] VITALS: O2SAT 95
[2016-12-24] MEDS: Benzocaine/Menthol (Cepacol) Lozenge MT PRN (02:57)
[2016-12-24 03:23] VITALS: TEMP 98.6
[2016-12-24] MEDS: Pantoprazole 40 mg Susp UD PO SCH (05:11)
[2016-12-24 06:16] VITALS: BP 136/64; PULSE 85; RESP 18
[2016-12-24 06:30] LABS: BASO # 0.01 K/mm3 (0.0-2.0); BASO % 0.1 % (0.0-3.0); EOS # 0.2 (0.0-0.7); EOS % 1.9 % (1.5-5.0); GRAN # 6.1 (1.4-6.5); GRAN % 73.2 % (50.0-68.0); HEMATOCRIT 39.1 % (42.0-52.0); LYMPH # 1.4 (1.2-3.4); LYMPH % 16.4 % (22.0-35.0); MEAN CORPUSCULAR HEMOGLOBIN 26.1 pg (25.0-35.0); MEAN CORPUSCULAR HGB CONC 33.5 g/dl (31.0-37.0); MEAN PLATELET VOLUME 9.8 fl (7.0-11.0); MONO # 0.7 (0.1-0.6); MONO % 8.4 % (1.0-6.0); RED CELL DISTRIBUTION WIDTH 14.2 % (11.5-14.5); WHITE BLOOD COUNT 8.3 10^3/ul (4.5-11.0)
[2016-12-24 07:03] LABS: ALB/GLOB RATIO 1.2 (1.1-1.8); ALKALINE PHOSPHATASE 86 U/L (38-126); ALT/SGPT 71 U/L (7-56); AST/SGOT 40 U/L (17-59); BILIRUBIN,TOTAL 0.5 mg/dL (0.2-1.3); BLOOD UREA NITROGEN 12 mg/dL (7-21); CALCIUM 9.1 mg/dL (8.4-10.5); CARBON DIOXIDE 29 mmol/L (21-33); CHLORIDE 103 mmol/L (98-107); GFR AFRICAN-AMERICAN > 60; GLUCOSE,RANDOM 107 mg/dL (70-110); PHOSPHOROUS 3.3 mg/dL (2.5-4.5); POTASSIUM 3.1 mmol/L (3.6-5.0); SODIUM 141 mmol/L (132-148); TOTAL PROTEIN 7.3 g/dL (5.8-8.3)
--- NOTE | 2016-12-24 09:02 | RAD ---
HISTORY: intubation, PNA COMPARISON: 12/23/2016 FINDINGS: LUNGS: No active pulmonary disease. PLEURA: No significant pleural effusion identified, no pneumothorax apparent. CARDIOVASCULAR: Normal. OSSEOUS STRUCTURES: No significant abnormalities. VISUALIZED UPPER ABDOMEN: Normal. OTHER FINDINGS: None. IMPRESSION: No active disease.
[2016-12-24] MEDS: Potassium Chloride 20 mEq ER Tab PO SCH ×2 (10:01→13:06)
[2016-12-24] MEDS: Phenytoin 100 mg/4 ml Oral Susp UD PO SCH ×3 (10:04→15:23)
--- NOTE | 2016-12-24 17:56 | CP.PCM.DIS ---
<Luis E Martinez - Last Filed: 12/24/16 21:00> Provider - Provider Date of Admission: 12/18/16 16:50 Attending physician: Sunil Cartagena MD Consults: Dr. Sony Cartagena Neurology Dr. Vasquez [employer] Resource Specialist Dr. Malagon Infectious Disease Dr. Vizcarra Cardiology Time Spent in preparation of Discharge (in minutes): 33 Hospital Course - Lab Results Lab Results: Micro Results 12/21/16 18:15 Blood-Venous Blood Culture - Preliminary NO GROWTH AFTER 48 HOURS 12/21/16 20:00 Urine,Clean Catch Urine Culture - Final No Growth (<1,000 CFU/ML) 12/21/16 12:00 Nose MRSA Culture (Admit) - Final MRSA NOT DETECTED 12/19/16 13:00 Urine,Clean Catch Urine Culture - Final No Growth (<1,000 CFU/ML) Most Recent Lab Values WBC 8.3 10^3/ul (4.5-11.0) 12/24/16 05:10 RBC 5.01 10^6/uL (3.5-6.1) 12/24/16 05:10 Hgb 13.1 g/dL (14.0-18.0) L 12/24/16 05:10 Hct 39.1 % (42.0-52.0) L 12/24/16 05:10 MCV 78.0 fl (80.0-105.0) L 12/24/16 05:10 MCH 26.1 pg (25.0-35.0) 12/24/16 05:10 MCHC 33.5 g/dl (31.0-37.0) 12/24/16 05:10 RDW 14.2 % (11.5-14.5) 12/24/16 05:10 Plt Count 196 10^3/uL (120.0-450.0) 12/24/16 05:10 MPV 9.8 fl (7.0-11.0) 12/24/16 05:10 Gran % 73.2 % (50.0-68.0) H 12/24/16 05:10 Lymph % (Auto) 16.4 % (22.0-35.0) L 12/24/16 05:10 Foard % (Auto) 8.4 % (1.0-6.0) H 12/24/16 05:10 Eos % (Auto) 1.9 % (1.5-5.0) 12/24/16 05:10 Baso % (Auto) 0.1 % (0.0-3.0) 12/24/16 05:10 Gran # 6.10 (1.4-6.5) 12/24/16 05:10 Lymph # 1.4 (1.2-3.4) 12/24/16 05:10 Foard # 0.7 (0.1-0.6) H 12/24/16 05:10 Eos # 0.2 (0.0-0.7) 12/24/16 05:10 Baso # 0.01 K/mm3 (0.0-2.0) 12/24/16 05:10 pCO2 41 mm/Hg (35-45) 12/23/16 05:30 pO2 96.0 mm/Hg (80-100) 12/23/16 05:30 HCO3 26.6 mmol/L (21-28) 12/23/16 05:30 ABG pH 7.42 (7.35-7.45) 12/23/16 05:30 ABG Total CO2 27.9 mmol.L (22-28) 12/23/16 05:30 ABG O2 Saturation 98.7 % (95-98) H 12/23/16 05:30 ABG O2 Content 18.9 ML/dl (15-23) 12/23/16 05:30 ABG Base Excess 1.9 mmol/L (-2.0-3.0) 12/23/16 05:30 ABG Hemoglobin 14.0 g/dL (11.7-17.4) 12/23/16 05:30 ABG Carboxyhemoglobin 1.8 % (0.5-1.5) H 12/23/16 05:30 POC ABG HHb (Measured) 1.3 % (0-5) 12/23/16 05:30 ABG Methemoglobin 1.2 % (0.0-3.0) 12/23/16 05:30 ABG O2 Capacity 19.1 mL/dl (16-24) 12/23/16 05:30 ABG Potassium 3.7 mmol/L (3.6-5.2) 12/21/16 18:10 Hgb O2 Saturation 95.7 % (95.0-98.0) 12/23/16 05:30 Sodium 138.0 mmol/L (132-148) 12/21/16 18:10 Chloride 107.0 mmol/L (98-107) 12/21/16 18:10 Glucose 204 mg/dl (75-110) H 12/21/16 18:10 Lactate 1.3 mmol/L (0.7-2.1) 12/21/16 18:10 FiO2 40.0 % 12/23/16 05:30 Tidal Volume 450 12/21/16 18:10 PEEP 15 12/21/16 18:10 Sodium 141 mmol/L (132-148) 12/24/16 05:10 Potassium 3.1 mmol/L (3.6-5.0) L 12/24/16 05:10 Chloride 103 mmol/L (98-107) 12/24/16 05:10 Carbon Dioxide 29 mmol/L (21-33) 12/24/16 05:10 Anion Gap 12 (10-20) 12/24/16 05:10 BUN 12 mg/dL (7-21) 12/24/16 05:10 Creatinine 0.6 mg/dL (0.5-1.4) 12/24/16 05:10 Est GFR ( Amer) > 60 12/24/16 05:10 Est GFR (Non-Af Amer) > 60 12/24/16 05:10 Random Glucose 107 mg/dL (70-110) 12/24/16 05:10 Lactic Acid 1.0 mmol/L (0.7-2.1) 12/20/16 15:35 Calcium 9.1 mg/dL (8.4-10.5) 12/24/16 05:10 Phosphorus 3.3 mg/dL (2.5-4.5) 12/24/16 05:10 Magnesium 2.0 mg/dL (1.7-2.2) 12/24/16 05:10 Total Bilirubin 0.5 mg/dL (0.2-1.3) 12/24/16 05:10 AST 40 U/L (17-59) 12/24/16 05:10 ALT 71 U/L (7-56) H 12/24/16 05:10 Alkaline Phosphatase 86 U/L (38-126) 12/24/16 05:10 Lactate Dehydrogenase 498 U/L (333-699) 12/21/16 12:00 Total Creatine Kinase 114 U/L (35-230) 12/21/16 12:00 Troponin I < 0.01 ng/mL 12/21/16 12:00 Total Protein 7.3 g/dL (5.8-8.3) 12/24/16 05:10 Albumin 4.0 g/dL (3.0-4.8) 12/24/16 05:10 Globulin 3.3 gm/dL 12/24/16 05:10 Albumin/Globulin Ratio 1.2 (1.1-1.8) 12/24/16 05:10 Procalcitonin 0.29 NG/ML (0.19-0.49) 12/22/16 06:30 Prolactin 18.2 ng/mL (3.7-17.9) H 12/21/16 12:00 Arterial Blood Potassium 3.7 mmol/L (3.6-5.2) 12/21/16 18:10 Urine Color Yellow (YELLOW) 12/19/16 13:00 Urine Appearance Clear (CLEAR) 12/19/16 13:00 Urine pH 6.0 (4.7-8.0) 12/19/16 13:00 Ur Specific [place] >= 1.030 (1.005-1.035) 12/19/16 13:00 Urine Protein Negative mg/dL (<30 mg/dL) 12/19/16 13:00 Urine Glucose (UA) Negative mg/dL (NEGATIVE) 12/19/16 13:00 Urine Ketones Negative mg/dL (NEGATIVE) 12/19/16 13:00 Urine Blood Negative (NEGATIVE) 12/19/16 13:00 Urine Nitrate Negative (NEGATIVE) 12/19/16 13:00 Urine Bilirubin Negative (NEGATIVE) 12/19/16 13:00 Urine Urobilinogen 0.2 E.U./dL (<1 E.U./dL) 12/19/16 13:00 Ur Leukocyte Esterase Negative Joyce/uL (NEGATIVE) 12/19/16 13:00 Salicylates < 1 mg/dL (2.0-20.0) L 12/18/16 15:45 Urine Opiates Screen Negative (NEGATIVE) 12/21/16 00:00 Urine Methadone Screen Negative (NEGATIVE) 12/21/16 00:00 Acetaminophen < 10.0 ug/ml (10.0-20.0) L 12/18/16 15:45 Ur Barbiturates Screen Positive (NEGATIVE) H 12/21/16 00:00 Phenytoin 3 ug/mL (10-20) L 12/22/16 05:30 Carbamazepine < 3 ug/mL (4.0-10.0) L 12/22/16 05:15 Ur Phencyclidine Scrn Negative (NEGATIVE) 12/21/16 00:00 Ur Amphetamines Screen Negative (NEGATIVE) 12/21/16 00:00 Phenobarbital 9.2 mg/L (15.0-40.0) L 12/22/16 05:10 U Benzodiazepines Scrn Negative (NEGATIVE) 12/21/16 00:00 U Oth Cocaine Metabols Negative (NEGATIVE) 12/21/16 00:00 U Cannabinoids Screen Negative (NEGATIVE) 12/21/16 00:00 Alcohol, Quantitative < 10 mg/dL (0-10) 12/18/16 15:45 Hepatitis A IgM Ab Negative (NEGATIVE) 12/20/16 12:39 Hep Bs Antigen Negative (NEGATIVE) 12/20/16 12:39 Hep B Core IgM Ab Negative (NEGATIVE) 12/20/16 12:39 Hepatitis C Antibody Negative (NEGATIVE) 12/20/16 12:39 HIV 1&2 Ag/Ab, 4th Gen Nonreactive (Nonreactive) 12/21/16 18:15 - Hospital Course Hospital Course: 26 year old male with a past medical history of seizures depression who presented to [facility] for suspected overdose with Tegretol and Trazadone. On admission the patient was lethargic and admitted to trying to commit suicide. Serum levels of phenobarbital and carbamazepine were ordered. In the meanwhile, the patient was placed on Keppra for seizure prophylaxis. Neurology and psychiatry were consulted. Initial labs and imaging showed an elevated Carbamazepine level. Within 48 after his admission the patient developed non-epileptic seizures, witnessed by hospital personnel. A few rapid responses were called for this reason, and eventually an ICU consulplaced given the immediate concern for airway protection , the patient was taken to the ICU, intubated and sedated. During his stay in the ICU, the patient devloped low grade fevers, and chest X-rays did show bilateral patchy infiltrates. Thus, he was empircally started on antibiotics for HAP. Whatever the case, the patient's bilateral infiltrates resolved post- extubation and he had no fevers thereafter. Equally important, the patient's home medications were resumed, including his Phenobarbital, Zoloft and Tegretol (dose was adjusted to 200 mg TID, rather than 400 mg BID) and he was discharged on a Klonopin taper as well as a Dilantin 100 mg TID. Psychiatry cleared him, and neurology recommended that he obtain 24-hour video EEG at either [facility] or [facility]. He was also instructed to establish care with a primary medical doctor, a neurologist, and a psychiatrist. - Date & Time of H&P Date of H&P: 12/24/16 Time of H&P: 15:20 Discharge Exam - Head Exam Head Exam: ATRAUMATIC, NORMAL INSPECTION, NORMOCEPHALIC - Eye Exam Eye Exam: Normal appearance, PERRL - ENT Exam ENT Exam: Mucous Membranes Moist, Normal Oropharynx - Neck Exam Neck exam: Normal Inspection - Respiratory Exam Respiratory Exam: Clear to PA & Lateral, NORMAL BREATHING PATTERN - Cardiovascular Exam Cardiovascular Exam: RRR, +S1, +S2 - GI/Abdominal Exam GI & Abdominal Exam: Normal Bowel Sounds. absent: Distended, Guarding, Tenderness - Extremities Exam Extremities exam: normal capillary refill, pedal pulses present - Back Exam Back exam: NORMAL INSPECTION. absent: CVA tenderness (L), CVA tenderness (R) - Neurological Exam Neurological exam: Alert, CN II-XII Intact, Oriented x3 - Psychiatric Exam Psychiatric exam: Normal Affect, Normal Mood - Skin Skin Exam: Dry, Intact, Normal Color, Warm Discharge Plan - Discharge Medications Prescriptions: carBAMazepine [TEGretol] 200 mg PO TID #90 tab Clonazepam [Klonopin] 0.5 mg PO PRN PRN #12 tablet PRN Reason: Agitation Phenytoin, Extended [Dilantin Kapseals] 100 mg PO TID #30 cer Sertraline [Zoloft] 100 mg PO DAILY #30 tab - Follow Up Plan Condition: GOOD Disposition: HOME/ ROUTINE Instructions: Narcotic Abuse (DC), Depression (DC), Suicide Prevention for Adults (DC), Anxiety (DC) Additional Instructions: 1) Schedule appointment with [facility] or [facility] for video EEG. 2) Take medications as directed. 3) Make an appointment with a neurologist. 4) Take carbamazepine 200 mg three times daily, phenobarbital two times daily, and dilatin 3 times daily. 5) Take Klonopin as directed 6) If you have any seizures, go to the nearest ER. <Sunil Cartagena - Last Filed: 12/25/16 15:57> Provider - Provider Date of Admission: 12/18/16 16:50 Attending physician: Sunil Cartagena MD Time Spent in preparation of Discharge (in minutes): 35 Hospital Course - Lab Results Lab Results: Micro Results 12/21/16 18:15 Blood-Venous Blood Culture - Preliminary NO GROWTH AFTER 3 DAYS 12/21/16 20:00 Urine,Clean Catch Urine Culture - Final No Growth (<1,000 CFU/ML) 12/21/16 12:00 Nose MRSA Culture (Admit) - Final MRSA NOT DETECTED 12/19/16 13:00 Urine,Clean Catch Urine Culture - Final No Growth (<1,000 CFU/ML) Most Recent Lab Values WBC 8.3 10^3/ul (4.5-11.0) 12/24/16 05:10 RBC 5.01 10^6/uL (3.5-6.1) 12/24/16 05:10 Hgb 13.1 g/dL (14.0-18.0) L 12/24/16 05:10 Hct 39.1 % (42.0-52.0) L 12/24/16 05:10 MCV 78.0 fl (80.0-105.0) L 12/24/16 05:10 MCH 26.1 pg (25.0-35.0) 12/24/16 05:10 MCHC 33.5 g/dl (31.0-37.0) 12/24/16 05:10 RDW 14.2 % (11.5-14.5) 12/24/16 05:10 Plt Count 196 10^3/uL (120.0-450.0) 12/24/16 05:10 MPV 9.8 fl (7.0-11.0) 12/24/16 05:10 Gran % 73.2 % (50.0-68.0) H 12/24/16 05:10 Lymph % (Auto) 16.4 % (22.0-35.0) L 12/24/16 05:10 Foard % (Auto) 8.4 % (1.0-6.0) H 12/24/16 05:10 Eos % (Auto) 1.9 % (1.5-5.0) 12/24/16 05:10 Baso % (Auto) 0.1 % (0.0-3.0) 12/24/16 05:10 Gran # 6.10 (1.4-6.5) 12/24/16 05:10 Lymph # 1.4 (1.2-3.4) 12/24/16 05:10 Foard # 0.7 (0.1-0.6) H 12/24/16 05:10 Eos # 0.2 (0.0-0.7) 12/24/16 05:10 Baso # 0.01 K/mm3 (0.0-2.0) 12/24/16 05:10 pCO2 41 mm/Hg (35-45) 12/23/16 05:30 pO2 96.0 mm/Hg (80-100) 12/23/16 05:30 HCO3 26.6 mmol/L (21-28) 12/23/16 05:30 ABG pH 7.42 (7.35-7.45) 12/23/16 05:30 ABG Total CO2 27.9 mmol.L (22-28) 12/23/16 05:30 ABG O2 Saturation 98.7 % (95-98) H 12/23/16 05:30 ABG O2 Content 18.9 ML/dl (15-23) 12/23/16 05:30 ABG Base Excess 1.9 mmol/L (-2.0-3.0) 12/23/16 05:30 ABG Hemoglobin 14.0 g/dL (11.7-17.4) 12/23/16 05:30 ABG Carboxyhemoglobin 1.8 % (0.5-1.5) H 12/23/16 05:30 POC ABG HHb (Measured) 1.3 % (0-5) 12/23/16 05:30 ABG Methemoglobin 1.2 % (0.0-3.0) 12/23/16 05:30 ABG O2 Capacity 19.1 mL/dl (16-24) 12/23/16 05:30 ABG Potassium 3.7 mmol/L (3.6-5.2) 12/21/16 18:10 Hgb O2 Saturation 95.7 % (95.0-98.0) 12/23/16 05:30 Sodium 138.0 mmol/L (132-148) 12/21/16 18:10 Chloride 107.0 mmol/L (98-107) 12/21/16 18:10 Glucose 204 mg/dl (75-110) H 12/21/16 18:10 Lactate 1.3 mmol/L (0.7-2.1) 12/21/16 18:10 FiO2 40.0 % 12/23/16 05:30 Tidal Volume 450 12/21/16 18:10 PEEP 15 12/21/16 18:10 Sodium 141 mmol/L (132-148) 12/24/16 05:10 Potassium 3.1 mmol/L (3.6-5.0) L 12/24/16 05:10 Chloride 103 mmol/L (98-107) 12/24/16 05:10 Carbon Dioxide 29 mmol/L (21-33) 12/24/16 05:10 Anion Gap 12 (10-20) 12/24/16 05:10 BUN 12 mg/dL (7-21) 12/24/16 05:10 Creatinine 0.6 mg/dL (0.5-1.4) 12/24/16 05:10 Est GFR ( Amer) > 60 12/24/16 05:10 Est GFR (Non-Af Amer) > 60 12/24/16 05:10 Random Glucose 107 mg/dL (70-110) 12/24/16 05:10 Lactic Acid 1.0 mmol/L (0.7-2.1) 12/20/16 15:35 Calcium 9.1 mg/dL (8.4-10.5) 12/24/16 05:10 Phosphorus 3.3 mg/dL (2.5-4.5) 12/24/16 05:10 Magnesium 2.0 mg/dL (1.7-2.2) 12/24/16 05:10 Total Bilirubin 0.5 mg/dL (0.2-1.3) 12/24/16 05:10 AST 40 U/L (17-59) 12/24/16 05:10 ALT 71 U/L (7-56) H 12/24/16 05:10 Alkaline Phosphatase 86 U/L (38-126) 12/24/16 05:10 Lactate Dehydrogenase 498 U/L (333-699) 12/21/16 12:00 Total Creatine Kinase 114 U/L (35-230) 12/21/16 12:00 Troponin I < 0.01 ng/mL 12/21/16 12:00 Total Protein 7.3 g/dL (5.8-8.3) 12/24/16 05:10 Albumin 4.0 g/dL (3.0-4.8) 12/24/16 05:10 Globulin 3.3 gm/dL 12/24/16 05:10 Albumin/Globulin Ratio 1.2 (1.1-1.8) 12/24/16 05:10 Procalcitonin 0.29 NG/ML (0.19-0.49) 12/22/16 06:30 Prolactin 18.2 ng/mL (3.7-17.9) H 12/21/16 12:00 Arterial Blood Potassium 3.7 mmol/L (3.6-5.2) 12/21/16 18:10 Urine Color Yellow (YELLOW) 12/19/16 13:00 Urine Appearance Clear (CLEAR) 12/19/16 13:00 Urine pH 6.0 (4.7-8.0) 12/19/16 13:00 Ur Specific [place] >= 1.030 (1.005-1.035) 12/19/16 13:00 Urine Protein Negative mg/dL (<30 mg/dL) 12/19/16 13:00 Urine Glucose (UA) Negative mg/dL (NEGATIVE) 12/19/16 13:00 Urine Ketones Negative mg/dL (NEGATIVE) 12/19/16 13:00 Urine Blood Negative (NEGATIVE) 12/19/16 13:00 Urine Nitrate Negative (NEGATIVE) 12/19/16 13:00 Urine Bilirubin Negative (NEGATIVE) 12/19/16 13:00 Urine Urobilinogen 0.2 E.U./dL (<1 E.U./dL) 12/19/16 13:00 Ur Leukocyte Esterase Negative Joyce/uL (NEGATIVE) 12/19/16 13:00 Salicylates < 1 mg/dL (2.0-20.0) L 12/18/16 15:45 Urine Opiates Screen Negative (NEGATIVE) 12/21/16 00:00 Urine Methadone Screen Negative (NEGATIVE) 12/21/16 00:00 Acetaminophen < 10.0 ug/ml (10.0-20.0) L 12/18/16 15:45 Ur Barbiturates Screen Positive (NEGATIVE) H 12/21/16 00:00 Phenytoin 3 ug/mL (10-20) L 12/22/16 05:30 Carbamazepine < 3 ug/mL (4.0-10.0) L 12/22/16 05:15 Ur Phencyclidine Scrn Negative (NEGATIVE) 12/21/16 00:00 Ur Amphetamines Screen Negative (NEGATIVE) 12/21/16 00:00 Phenobarbital 9.2 mg/L (15.0-40.0) L 12/22/16 05:10 U Benzodiazepines Scrn Negative (NEGATIVE) 12/21/16 00:00 U Oth Cocaine Metabols Negative (NEGATIVE) 12/21/16 00:00 U Cannabinoids Screen Negative (NEGATIVE) 12/21/16 00:00 Alcohol, Quantitative < 10 mg/dL (0-10) 12/18/16 15:45 Hepatitis A IgM Ab Negative (NEGATIVE) 12/20/16 12:39 Hep Bs Antigen Negative (NEGATIVE) 12/20/16 12:39 Hep B Core IgM Ab Negative (NEGATIVE) 12/20/16 12:39 Hepatitis C Antibody Negative (NEGATIVE) 12/20/16 12:39 HIV 1&2 Ag/Ab, 4th Gen Nonreactive (Nonreactive) 12/21/16 18:15 Attending/Attestation - Attestation I have personally seen and examined this patient.: Yes I have fully participated in the care of the patient.: Yes I have reviewed all pertinent clinical information, including history, physical exam and plan: Yes Notes (Text): I have seen and examined the patient at bedside. Agree with the above note with the following additions/ exceptions: Briefly this is 26 year old male with history of depression, seizure who was admitted for suspected trazodone overdose. Patient was initially intubated and was later extubated for possible status epilepticus and currently denies any problem. Neurologist recommended to add dilantin to the current regimen which includes phenobarbital and tegretol. He was advised to have 24 hour EEG monitoring which can be done in [facility] or [facility]. He was initially on 1:1 observation for possible suicide attempt and was started on klonopin. Psychiatrist cleared the patient for discharge and recommended tapering doses of klonopin. Management plan was discussed in detail with the patient. Upon discharge patient will follow up with pmd and [facility]. Dr Sunil Cartagena
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
--- NOTE | 2016-12-25 12:34 | CP.PCM.PCO ---
Physician Communication Note - Physician Communication Note Physician Communication Note: pt was d/c
== END 2016-12-24 16:58 | disposition home or self-care (01) | DRG 582 ==
LOC: ED 15:23 → EROBSV 16:50 → OBSVTOIN 16:50 → ERH 16:50 → 2RSO 12-19 00:01 → CCU 12-21 11:59 → 5RSO 12-24 07:48
PROVIDERS: ADMIT Hospitalist; ATTEND Hospitalist
PROC: 5A1945Z Respiratory Ventilation, 24-96 Consecutive Hours (ICD-10-PCS; principal; 2016-12-21)
PROC: 0BH17EZ Insertion of Endotracheal Airway into Trachea, Via Natural or Artificial Opening (ICD-10-PCS; 2016-12-21)
DX: T43.212A Poisoning by selective serotonin and norepinephrine reuptake inhibitors, intentional self-harm, initial encounter (principal); T42.1X2A Poisoning by iminostilbenes, intentional self-harm, initial encounter; J96.91 Respiratory failure, unspecified with hypoxia; J18.9 Pneumonia, unspecified organism; F33.2 Major depressive disorder, recurrent severe without psychotic features; F20.9 Schizophrenia, unspecified; G40.901 Epilepsy, unspecified, not intractable, with status epilepticus; F41.9 Anxiety disorder, unspecified; F31.9 Bipolar disorder, unspecified; F17.210 Nicotine dependence, cigarettes, uncomplicated; J45.909 Unspecified asthma, uncomplicated; Y95 Nosocomial condition; E66.9 Obesity, unspecified; Z68.35 Body mass index [BMI] 35.0-35.9, adult; Z59.0 Homelessness